=== PATIENT | female | born 1965 | race Caucasian/White ===

== ENCOUNTER 2017-10-31 10:05 | Emergency (ER) | payer OTHER ==
[~2017-10-31] VITALS: Ht 170.2 cm; Wt 109.8 kg
--- NOTE | 2017-10-31 11:45 | ED INFLUENZA/URI COMPLAINT ---
History of Present Illness General Chief Complaint: Upper Respiratory Sx/Fever Stated Complaint: COUGH Source: patient Exam Limitations: no limitations Vital Signs & Intake/Output Vital Signs & Intake/Output Vital Signs Date Time Temp Pulse Resp B/P B/P Pulse O2 O2 Flow FiO2 Mean Ox Delivery Rate 10/31 1212 96 10/31 1013 99.5 108 18 142/92 95 Room Air Allergies Coded Allergies: NO KNOWN ALLERGIES (06/23/14) Reconcile Medications Albuterol Sulfate (Proair Hfa) 90 MCG HFA.AER.AD 2 PUF INH Q4-6 PRN PRN SHORTNESS OF BREATH (Reported) Amlodipine Besylate 5 MG TABLET 1 TAB PO DAILY HEART (Reported) Atorvastatin Calcium 10 MG TABLET 1 TAB PO DAILY CHOLESTEROL (Reported) Beclomethasone Dipropionate (QVAR) 80 MCG AER.W.ADAP 2 PUF INH BID BREATHING PROBLEMS (Reported) Dalfampridine (Ampyra) 10 MG TAB.ER.12H WALKING (Reported) Dextroamphetamine/Amphetamine (Dextroamp-Amphetamin 10 MG Tab) 10 MG TABLET 1 TAB PO TID FATIGUE (Reported) Ergocalciferol (Vitamin D2) (Vitamin D2) 50,000 UNIT CAPSULE 1 CAP PO QW VITAMIN SUPPORT (Reported) Fluticasone/Vilanterol (Breo Ellipta 100-25 Mcg INH) 100 MCG-25 MCG/DOSE BLST.W.DEV SHORTNESS OF BREATH (Reported) Gabapentin 100 MG CAPSULE 1 CAP PO BID SPASMS (Reported) Gabapentin 300 MG CAPSULE 1 CAP PO QPM SPASMS (Reported) Levothyroxine Sodium 50 MCG TABLET 1 TAB PO DAILY AC THYROID (Reported) Triage Note: 52 YO FEMALE TO TRIAGE FOR EVAL OF COUGH AND SOB. STATES HX OF ASTHMA. STATES SOMETIMES HER COUGH IS PRODUCTIVE WITH YELLOW SPUTUM. STATES SHE HAS BEEN HAVING TO USE HER RESCUE INHALER MORE FREQUENTLY. DENIES CHEST PAIN. STATES SHE ALSO FEELS IF SHE PULLED HER BACK OUT WHILE COGHING, HX OF MS. Triage Nurses Notes Reviewed? yes Onset: Gradual Duration: constant Timing: recent history Severity: moderate Severity Numbers: 5 HPI: Patient is a 52-year-old female with past medical history of asthma MS hyperlipidemia and hypertension who presents emergency room with concerns of a 3 day history of nonproductive coughing pleuritic chest pain and back pain due to multiple episodes of coughing fits. Denies any fever chills ear pain sore throat difficulty breathing or swallowing chest pain arm pain jaw pain nausea vomiting leg swelling. Denies any similar sick contacts. Past History Travel History Traveled to [place] past 21 day No Medical History Any Pertinent Medical History? 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 No Review of Systems Review of Systems Constitutional: Reports: see HPI. Denies: chills, fever. EENTM: Reports: no symptoms. Respiratory: Reports: see HPI, cough. Cardiovascular: Reports: no symptoms. GI: Reports: no symptoms. Genitourinary: Reports: no symptoms. Musculoskeletal: Reports: no symptoms. Skin: Reports: no symptoms. Neurological/Psychological: Reports: no symptoms. Hematologic/Endocrine: Reports: no symptoms. Immunologic/Allergic: Reports: no symptoms. All Other Systems: Reviewed and Negative Physical Exam Physical Exam General Appearance: no apparent distress, alert, comfortable Head: atraumatic Eyes: Bilateral: normal appearance. Ears, Nose, Throat: normal ENT inspection, moist mucous membrane, hearing grossly normal Respiratory: chest non-tender, no respiratory distress, decreased breath sounds Cardiovascular: regular rate/rhythm Gastrointestinal: normal bowel sounds, soft, non-tender Extremities: normal inspection, no edema Neurologic/Psych: no motor/sensory deficits, awake, alert Skin: intact, normal color, warm/dry Core Measures Sepsis Present: No Sepsis Focused Exam Completed? No Progress Differential Diagnosis: influenza, meningitis, neutropenia, otitis, pneumonia, pharyngitis, sinusitis Plan of Care: Orders Procedure Date/time Status XRY-CHEST XRAY, TWO VIEWS 10/31 1156 Active Patient is afebrile no apparent distress no respiratory distress has decreased breath sounds nebulizer will be ordered chest x-ray will be obtained Patient had improvement of breathing after nebulizer was administered patient also had improvement on reexamination of the decreased breath sounds patient upon discharge looks well no apparent distress afebrile Was treated for concerns of bronchitis Diagnostic Imaging: Viewed by Me: Radiology Read. Radiology Impression: SEE COMMENTS Initial ED EKG: none Comments: PATIENT: LUPE STERLING PRESENT AGE: 52 PATIENT ACCOUNT NO: [id number] : 66 LOCATION: [facility] ORDERING PHYSICIAN: Rigoberto DAY SERVICE DATE: 10/31/176 EXAM TYPE: RAD - XRY-CHEST XRAY, TWO VIEWS EXAMINATION: XR CHEST CLINICAL INFORMATION: Cough and SOB. COMPARISON: Chest 08/07/2017 TECHNIQUE: 2 views of the chest were obtained. FINDINGS: There is there is a small left pleural effusion with underlying atelectasis and new since the last study. Otherwise both lungs are well-expanded and clear. Heart size is borderline normal. No gross bony abnormality seen. IMPRESSION: Suspect small left pleural effusion with underlying compressive atelectasis. DICTATED BY: Benitez Gandhi MD DATE/TIME DICTATED:10/31/171240 BANK TELLER:ROSIE DATE/TIME TRANSCRIBED:10/31/17 Departure Departure Disposition: HOME OR SELF CARE Condition: Stable Clinical Impression Primary Impression: Bronchitis Referrals: Kush Castanon MD (PCP/Family) Tad Ridley MD Additional Instructions: As discussed begin a prescription of azithromycin for the full course, Tessalon Perles and Cheratussin for cough and Medrol Dosepak for inflammation, prescriptions waiting at [facility]. If symptoms worsen or if you develop any new concerning symptoms return to the emergency room, if no better in 2 days follow-up with your primary care doctor or establish custodian supervisor Dr. Ridley Departure Forms: Customer Survey General Discharge Information Prescriptions: Current Visit Scripts Azithromycin (Zithromax) 1 TAB PO DAILY #5 TAB Benzonatate (Tessalon Perle) 1 CAP PO TID PRN COUGH #21 CAP Codeine Phosphate/Guaifenesi (Cheratussin AC Syrup) 10 ML PO BID PRN COUGH #100 ML Methylprednisolone. (Medrol) 1 DP PO AD #1 DP 6 on day 1 then reduce by one tablet daily until gone
[2017-10-31] MEDS ORDERED: VITAMIN D250000 UNIT PO (12:38)
[2017-10-31] MEDS ORDERED: GABAPENTIN100 M2 PO (12:39)
[2017-10-31] MEDS ORDERED: LEVOTHYROXINE50 MCG PO (12:39)
[2017-10-31] MEDS ORDERED: ATORVASTATIN CA10 M1 PO (12:39)
[2017-10-31] MEDS ORDERED: GABAPENTIN300 M2 PO (12:39)
[2017-10-31] MEDS ORDERED: AMPYRA10 M1 PO (12:40)
[2017-10-31] MEDS ORDERED: DEXTROAMP-AMPHE10 MG PO (12:40)
[2017-10-31] MEDS ORDERED: PROAIR HFA8.5 GM INH (12:40)
[2017-10-31] MEDS ORDERED: AMLODIPINE BESYL5 M1 PO (12:41)
[2017-10-31] MEDS ORDERED: BREO ELLIPTA 11 EACH PO (12:41)
[2017-10-31] MEDS ORDERED: QVAR8.7 G1 INH (12:41)
--- NOTE | 2017-10-31 12:45 | RADIOLOGY REPORT ---
EXAMINATION: XR CHEST CLINICAL INFORMATION: Cough and SOB. COMPARISON: Chest 08/07/2017 TECHNIQUE: 2 views of the chest were obtained. FINDINGS: There is there is a small left pleural effusion with underlying atelectasis and new since the last study. Otherwise both lungs are well-expanded and clear. Heart size is borderline normal. No gross bony abnormality seen. IMPRESSION: Suspect small left pleural effusion with underlying compressive atelectasis.
[2017-10-31] MEDS ORDERED: ZITHROMAX500 M2 PO (13:16)
[2017-10-31] MEDS ORDERED: CHERATUSSIN AC118 M1 PO (13:16)
[2017-10-31] MEDS ORDERED: MEDROL4 M2 PO (13:16)
[2017-10-31] MEDS ORDERED: TESSALON PERLE100 M1 PO (13:16)
[2017-10-31 13:48] VITALS: BP 138/84
[2017-10-31] MEDS ORDERED: VALIUM5 M2 PO (15:21)
[2017-11-01] MEDS ORDERED: AMPYRA10 M1 PO (21:37)
== END 2017-10-31 13:49 ==
LOC: ERH 10:05
DX: J40 Bronchitis, not specified as acute or chronic (principal); R07.89 Other chest pain
CPT/HCPCS: 1263; 71046; J3360

== ENCOUNTER 2017-10-31 13:53 | Emergency (ER) | payer OTHER ==
[~2017-10-31] VITALS: Ht 170.2 cm; Wt 109.8 kg
[~2017-10-31 13:53] MED LIST: AMLODIPINE BESYL5 M1 PO; AMPYRA10 M1 PO; ATORVASTATIN CA10 M1 PO; BREO ELLIPTA 11 EACH PO; CHERATUSSIN AC118 M1 PO; DEXTROAMP-AMPHE10 MG PO; GABAPENTIN100 M2 PO; GABAPENTIN300 M2 PO; LEVOTHYROXINE50 MCG PO; MEDROL4 M2 PO; PROAIR HFA8.5 GM INH; QVAR8.7 G1 INH; TESSALON PERLE100 M1 PO; VITAMIN D250000 UNIT PO; ZITHROMAX500 M2 PO
--- NOTE | 2017-10-31 14:20 | ED NECK/BACK PAIN COMPLAINT ---
History of Present Illness General Chief Complaint: General Adult Stated Complaint: CRAMPING ON LEFT SIDE, SEEN HERE TODAY FOR BRONCHI Source: patient Exam Limitations: no limitations Vital Signs & Intake/Output Vital Signs & Intake/Output Vital Signs Date Time Temp Pulse Resp B/P B/P Pulse O2 O2 Flow FiO2 Mean Ox Delivery Rate 10/31 1511 98.0 112 20 161/93 94 Room Air Room Air 10/31 1357 98.4 101 18 153/94 98 Room Air Allergies Coded Allergies: NO KNOWN ALLERGIES (06/23/14) Reconcile Medications Albuterol Sulfate (Proair Hfa) 90 MCG HFA.AER.AD 2 PUF INH Q4-6 PRN PRN SHORTNESS OF BREATH (Reported) Amlodipine Besylate 5 MG TABLET 1 TAB PO DAILY HEART (Reported) Atorvastatin Calcium 10 MG TABLET 1 TAB PO DAILY CHOLESTEROL (Reported) Azithromycin (Zithromax) 500 MG TABLET 1 TAB PO DAILY BRONCHITIS Beclomethasone Dipropionate (QVAR) 80 MCG AER.W.ADAP 2 PUF INH BID BREATHING PROBLEMS (Reported) Benzonatate (Tessalon Perle) 100 MG CAPSULE 1 CAP PO TID PRN COUGH Codeine Phosphate/Guaifenesi (Cheratussin AC Syrup) 10 MG-100 MG/5 ML LIQUID 10 ML PO BID PRN COUGH Dalfampridine (Ampyra) 10 MG TAB.ER.12H WALKING (Reported) Dextroamphetamine/Amphetamine (Dextroamp-Amphetamin 10 MG Tab) 10 MG TABLET 1 TAB PO TID FATIGUE (Reported) Diazepam (Valium) 5 MG TABLET 1 TAB PO BIDP PRN MS HUG Ergocalciferol (Vitamin D2) (Vitamin D2) 50,000 UNIT CAPSULE 1 CAP PO QW VITAMIN SUPPORT (Reported) Fluticasone/Vilanterol (Breo Ellipta 100-25 Mcg INH) 100 MCG-25 MCG/DOSE BLST.W.DEV SHORTNESS OF BREATH (Reported) Gabapentin 100 MG CAPSULE 1 CAP PO BID SPASMS (Reported) Gabapentin 300 MG CAPSULE 1 CAP PO QPM SPASMS (Reported) Levothyroxine Sodium 50 MCG TABLET 1 TAB PO DAILY AC THYROID (Reported) Methylprednisolone. (Medrol) 4 MG TAB.DS.PK 1 DP PO AD INFLAMMATION 6 on day 1 then reduce by one tablet daily until gone Triage Note: 52 YO FEMALE TO TRIAGE FOR EVAL OF L SIDED FLANK PAIN, PT WAS JUST D/C FROM THE ER AND DX WITH BRONCHITIS. STATES PAIN STARTED SHE WAS GETTING WHEELED TO CAR. Triage Nurses Notes Reviewed? yes Onset: Abrupt Duration: constant Timing: single episode today Quality/Severity: moderate Location: paraspinous muscles HPI: Patient is a 52-year-old female with past medical history of MS in which she was evaluated 5 minutes ago in the emergency room for concerns of bronchitis and due to multiple episodes of coughing prior to onset she has an exacerbation of a MS HUG in which she is complaining of left-sided chest muscle spasms where she states that this happens "once in a blue arteaga" with patient takes and is compliant with her gabapentin Patient does state that due to her symptoms for the past few days of coughing she has had minimal emesis hugs however today's after she left the emergency room on the parking lot was much worse Past History Travel History Traveled to [place] past 21 day No Medical History Any Pertinent Medical History? 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 No Review of Systems Review of Systems Constitutional: Reports: no symptoms. Eyes: Reports: no symptoms. Ears, Nose, Throat, Mouth: Reports: no symptoms. Respiratory: Reports: see HPI. Cardiovascular: Reports: see HPI. Gastrointestinal/Abdominal: Reports: no symptoms. Musculoskeletal: Reports: see HPI. Skin: Reports: no symptoms. Neurological/Psychological: Reports: no symptoms. All Other Systems: Reviewed and Negative Physical Exam Physical Exam General Appearance: moderate distress Head: atraumatic Eyes: Bilateral: normal appearance. Ears, Nose, Throat, Mouth: hearing grossly normal Neck: normal inspection, no midline tenderness Respiratory: normal breath sounds Cardiovascular: regular rate/rhythm Gastrointestinal: normal bowel sounds Extremities: non-tender Core Measures CVA/TIA Diagnosis: No Progress Differential Diagnosis: carotid dissection, cauda equina syn, herniated disc, myofascial strain, pyelo/UTI, sciatica, spinal cord inj, thoracic outlet syn, T/ L spine injury, ureterolithiasis Plan of Care: Laboratory Tests 10/31/17 1434: Urine Color Cancelled, Urine Clarity Cancelled, Urine pH Cancelled, Ur Specific [place] Cancelled, Urine Protein Cancelled, Urine Ketones Cancelled, Urine Nitrite Cancelled, Urine Bilirubin Cancelled, Urine Urobilinogen Cancelled, Ur Leukocyte Esterase Cancelled, Ur Microscopic Cancelled, Urine Hemoglobin Cancelled, Urine Glucose Cancelled After Valium was administered patient had significant resolution of symptoms discussed CT scan results with patient Patient was given azithromycin for concerns of bronchitis however it is noted that patient has pneumonia from CT scan Patient after volume was administered had complete resolution of muscle spasms Patient requested to be discharged Diagnostic Imaging: Viewed by Me: CT Scan. Radiology Impression: SEE COMMENTS Comments: PATIENT: LUPE STERLING PRESENT AGE: 52 PATIENT ACCOUNT NO: [id number] : 67 LOCATION: [facility] ORDERING PHYSICIAN: Rigoberto DAY SERVICE DATE: 10/31/17-1433 EXAM TYPE: CAT - CT ABD & PELVIS W/O IV CONTRAS EXAMINATION: CT ABDOMEN AND PELVIS WITHOUT CONTRAST CLINICAL INFORMATION: Left flank pain COMPARISON: None TECHNIQUE: Multidetector volumetric imaging was performed from the superior aspect of the liver through the pubic symphysis. Sagittal and coronal reformatted images were obtained on the technologist's workstation. No oral or intravenous contrast was given. DLP: 1022.25 mGy-cm FINDINGS: LUNG BASES: Dense consolidation with air bronchograms of left lower lobe at the posterior dependent lung base. There is a small left pleural effusion layering dependently. LIVER, GALLBLADDER, AND BILIARY TREE: The liver is normal in size, shape, and attenuation. No focal hepatic lesion or biliary ductal dilatation is present. There are multiple small calcified gallstones layering in the gallbladder. No edema around the gallbladder. There is no bile duct dilatation. PANCREAS: Unremarkable. SPLEEN: Unremarkable. ADRENAL GLANDS: Unremarkable. KIDNEYS AND URETERS: The kidneys are normal in size, shape, and attenuation. No hydronephrosis, hydroureter, or calculi seen. No perinephric stranding. There are multiple small calcifications phleboliths in the pelvis bilaterally. BLADDER: Unremarkable. GASTROINTESTINAL TRACT: There are scattered diverticula of the left colon and sigmoid. There is no acute abnormality of the bowel. There is no diverticulitis. There is no bowel obstruction. There is no bowel wall thickening or edema. Moderate volume of stool scattered throughout the colon. The appendix is normal. The small bowel loops are normal. ABDOMINAL WALL: No significant hernia is appreciated. LYMPH NODES: Normal. VASCULAR: Unremarkable. PELVIC VISCERA: The uterus is retroverted. There is no adnexal abnormality. OSSEOUS STRUCTURES: There is degenerative spondylosis of the spine with multilevel disc height narrowing and endplate spurring and facet joint arthrosis. There is joint narrowing of the hip joints with spurring of the superior lateral acetabular rim of both hips. IMPRESSION: 1. No acute abnormality of the abdomen or pelvis. Normal kidneys, ureter and bladder. 2. Cholelithiasis without acute change of the gallbladder wall and no bile duct dilatation. 3. Mild diverticulosis of colon without acute abnormality of the bowel. 4. Left lower lobe consolidation, infiltrate, with left pleural effusion. DICTATED BY: Moris Jane MD DATE/TIME DICTATED:10/31/171502 SECTION MAINTAINER:ROSIE DATE/TIME TRANSCRIBED:10/31/171502 Departure Departure Disposition: HOME OR SELF CARE Condition: Stable Clinical Impression Primary Impression: Muscle spasm Secondary Impressions: Pneumonia Referrals: Kush Castanon MD (PCP/Family) Additional Instructions: As discussed continue previously prescribed medications for pneumonia especially your cough medications and the antibiotics, begin the prescription of Valium for recurrence of the muscle spasms. Prescription waiting at [facility]. If symptoms worsen or if you develop new concerning symptom return to the emergency room Departure Forms: Customer Survey General Discharge Information Prescriptions: Current Visit Scripts Diazepam (Valium) 1 TAB PO BIDP PRN MS HUG #8 TAB
[2017-10-31 15:11] VITALS: BP 161/93
--- NOTE | 2017-10-31 15:15 | CT SCAN REPORT ---
EXAMINATION: CT ABDOMEN AND PELVIS WITHOUT CONTRAST CLINICAL INFORMATION: Left flank pain COMPARISON: None TECHNIQUE: Multidetector volumetric imaging was performed from the superior aspect of the liver through the pubic symphysis. Sagittal and coronal reformatted images were obtained on the technologist's workstation. No oral or intravenous contrast was given. DLP: 1022.25 mGy-cm FINDINGS: LUNG BASES: Dense consolidation with air bronchograms of left lower lobe at the posterior dependent lung base. There is a small left pleural effusion layering dependently. LIVER, GALLBLADDER, AND BILIARY TREE: The liver is normal in size, shape, and attenuation. No focal hepatic lesion or biliary ductal dilatation is present. There are multiple small calcified gallstones layering in the gallbladder. No edema around the gallbladder. There is no bile duct dilatation. PANCREAS: Unremarkable. SPLEEN: Unremarkable. ADRENAL GLANDS: Unremarkable. KIDNEYS AND URETERS: The kidneys are normal in size, shape, and attenuation. No hydronephrosis, hydroureter, or calculi seen. No perinephric stranding. There are multiple small calcifications phleboliths in the pelvis bilaterally. BLADDER: Unremarkable. GASTROINTESTINAL TRACT: There are scattered diverticula of the left colon and sigmoid. There is no acute abnormality of the bowel. There is no diverticulitis. There is no bowel obstruction. There is no bowel wall thickening or edema. Moderate volume of stool scattered throughout the colon. The appendix is normal. The small bowel loops are normal. ABDOMINAL WALL: No significant hernia is appreciated. LYMPH NODES: Normal. VASCULAR: Unremarkable. PELVIC VISCERA: The uterus is retroverted. There is no adnexal abnormality. OSSEOUS STRUCTURES: There is degenerative spondylosis of the spine with multilevel disc height narrowing and endplate spurring and facet joint arthrosis. There is joint narrowing of the hip joints with spurring of the superior lateral acetabular rim of both hips. IMPRESSION: 1. No acute abnormality of the abdomen or pelvis. Normal kidneys, ureter and bladder. 2. Cholelithiasis without acute change of the gallbladder wall and no bile duct dilatation. 3. Mild diverticulosis of colon without acute abnormality of the bowel. 4. Left lower lobe consolidation, infiltrate, with left pleural effusion.
[2017-10-31] MEDS ORDERED: VALIUM5 M2 PO (15:21)
[2017-11-01] MEDS ORDERED: AMPYRA10 M1 PO (21:37)
== END 2017-10-31 16:23 ==
LOC: ERH 13:53
DX: M62.838 Other muscle spasm (principal); J18.9 Pneumonia, unspecified organism
CPT/HCPCS: 74176

== ENCOUNTER 2017-11-01 18:05 | Inpatient (IN) | payer OTHER ==
[~2017-11-01] VITALS: Ht 170.2 cm; Wt 106.1 kg
[~2017-11-01 18:05] MED LIST changes: +VALIUM5 M2 PO
--- NOTE | 2017-11-01 18:13 | ED DYSPNEA/ASTHMA COMPLAINT ---
History of Present Illness General Chief Complaint: General Adult Stated Complaint: HERE YEST X 2, DX W/ PNA, HAVING MUSCLE SPASMS Source: patient Exam Limitations: no limitations Vital Signs & Intake/Output Vital Signs & Intake/Output Vital Signs Date Time Temp Pulse Resp B/P B/P Pulse O2 O2 Flow FiO2 Mean Ox Delivery Rate 11/01 2243 108 18 160/90 95 Room Air 11/01 2005 113 20 179/83 94 Room Air 11/01 1810 99.2 106 18 153/90 94 Room Air Allergies Coded Allergies: NO KNOWN ALLERGIES (06/23/14) Triage Nurses Notes Reviewed? yes Onset: Gradual Duration: getting worse Severity: severe HPI: Patient is a 52-year-old female with a past medical history of asthma MS hyperlipidemia and hypertension who presents emergency room and which I evaluated patient yesterday on 2 occasions in the emergency room for concerns of upper respiratory infection and pneumonia however patient return to the emergency room for concerns of bronchospasms and CONTINUED "MS hug" AND COUGHING where she received Valium with improvement of symptoms patient was given antibiotics and antitussive medications and steroids however she returns stating that the coughing fits still occurs where patient does not feel any better and "THE MS HUGS" intermittent intercostal pain continues on multiple occasions unrelieved with her previous prescriptions given for Valium. Patient states that she just feels sore in her chest right now denies any and MS hug symptoms (Gerry DAY,Rigoberto) Reconcile Medications Albuterol Sulfate (Proair Hfa) 90 MCG HFA.AER.AD 2 PUF INH Q4-6 PRN PRN SHORTNESS OF BREATH (Reported) Amlodipine Besylate 5 MG TABLET 1 TAB PO DAILY HEART (Reported) Atorvastatin Calcium 10 MG TABLET 1 TAB PO DAILY CHOLESTEROL (Reported) Azithromycin (Zithromax) 500 MG TABLET 1 TAB PO DAILY BRONCHITIS Beclomethasone Dipropionate (QVAR) 80 MCG AER.W.ADAP 2 PUF INH BID BREATHING PROBLEMS (Reported) Benzonatate (Tessalon Perle) 100 MG CAPSULE 1 CAP PO TID PRN COUGH Codeine Phosphate/Guaifenesi (Cheratussin AC Syrup) 10 MG-100 MG/5 ML LIQUID 10 ML PO BID PRN COUGH Dalfampridine (Ampyra) 10 MG TAB.ER.12H 1 TAB PO BID UNKNOWN (Reported) Dextroamphetamine/Amphetamine (Dextroamp-Amphetamin 10 MG Tab) 10 MG TABLET 1 TAB PO TID FATIGUE (Reported) Diazepam (Valium) 5 MG TABLET 1 TAB PO BIDP PRN MS DAVID Ergocalciferol (Vitamin D2) (Vitamin D2) 50,000 UNIT CAPSULE 1 CAP PO QW VITAMIN SUPPORT (Reported) Fluticasone/Vilanterol (Breo Ellipta 100-25 Mcg INH) (Unknown Strength) BLST.W.DEV (Unknown Dose) PO DAILY SHORTNESS OF BREATH (Reported) Gabapentin 100 MG CAPSULE 1 CAP PO BID SPASMS (Reported) Gabapentin 300 MG CAPSULE 1 CAP PO QPM SPASMS (Reported) Levothyroxine Sodium 50 MCG TABLET 1 TAB PO DAILY AC THYROID (Reported) Methylprednisolone. (Medrol) 4 MG TAB.DS.PK 1 DP PO AD INFLAMMATION 6 on day 1 then reduce by one tablet daily until gone (Toni Zapata DO) Past History Travel History Traveled to [place] past 21 day No Medical History Any Pertinent Medical History? 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 No (Rigoberto Rangel) Review of Systems Review of Systems Constitutional: Reports: see HPI, fever. EENTM: Reports: no symptoms. Respiratory: Reports: see HPI. Cardiovascular: Reports: see HPI. GI: Reports: no symptoms. Genitourinary: Reports: no symptoms. Musculoskeletal: Reports: see HPI. Skin: Reports: no symptoms. Neurological/Psychological: Reports: no symptoms. Hematologic/Endocrine: Reports: no symptoms. Immunologic/Allergic: Reports: no symptoms. All Other Systems: Reviewed and Negative (Rigoberto Rangel) Physical Exam Physical Exam General Appearance: lethargic Head: atraumatic Eyes: Bilateral: normal appearance. Ears, Nose, Throat: normal pharynx Neck: normal inspection Respiratory: LEFT CRACKLES Cardiovascular: tachycardia Gastrointestinal: normal bowel sounds, soft, non-tender Extremities: no edema Neurologic/Psych: no motor/sensory deficits, awake Skin: intact, normal color Core Measures ACS in differential dx? Yes CVA/TIA Diagnosis No Sepsis Present: Yes Sepsis Focused Exam Completed? Yes (Gerry DAY,Rigoberto) Progress Differential Diagnosis: asthma, AMI, bronchitis, costochondritis, CHF, COPD, musculoskeletal pain, pericarditis, pulmonary embolism, pneumonia, pneumothorax, rib fracture, unstable angina Plan of Care: Orders Procedure Date/time Status Heart Healthy Diet 11/02 B Active HEPATIC FUNCTION PANEL 11/02 06 Active CBC WITHOUT DIFFERENTIAL 11/02 06 Active BASIC ELECTROLYTES PLUS BUN&CR 11/02 0600 Active TROPONIN LEVEL 11/02 0000 Active EKG 11/02 0000 Active Intake & Output 11/01 2234 Active EKG 11/01 2219 Active ED- NURSING MISC 11/01 220 Active ECHOCARDIOGRAM 11/01 220 Active Add-on Test (ER Only) 11/02 2143 Active TRC EVALUATION (GEN) 11/02 2115 Active Pathway - chart 11/02 2115 Active LACTIC ACID 11/01 211 Active Patient Data 11/01 210 Active ED Holding Orders 11/01 210 Active Admit to inpatient 11/01 210 Active Vital Signs 11/01 210 Active Code Status 11/01 210 Active Add-on Test (ER Only) 11/01 2054 Active LIPASE 11/01 1840 Complete B-TYPE NATRIURETIC PEP (BNP) 11/01 1840 Complete LOWER RESPIRATORY CULTURE 11/01 1813 Active BLOOD CULTURE 11/01 1813 Active TROPONIN LEVEL 11/01 1813 Complete LACTIC ACID 11/01 1813 Complete D-DIMER 11/01 1813 Complete COMPREHENSIVE METABOLIC PANEL 11/01 1813 Complete CBC WITHOUT DIFFERENTIAL 11/01 1813 Complete EKG 11/01 1813 Active VTE Mechanical Prophylaxis 11/01 UNK Active Current Medications Sig/Ana Rosa Start time Last Medication Dose Stop Time Status Admin Atorvastatin Calcium 10 MG 1700 11/02 1700 AC (Lipitor) Amlodipine Besylate 5 MG DAILY 11/02 09 AC (Norvasc) Azithromycin 500 MG DAILY 11/02 09 AC (Zithromax) Sodium Chloride 250 ML (Normal Saline 0.9%) Ceftriaxone Sodium 1,000 MG DAILY 11/02 899 AC (Rocephin) Enoxaparin Sodium 40 MG DAILY 11/02 899 UNVr (Lovenox) Gabapentin 100 MG DAILY 11/02 09 AC (Neurontin) Levothyroxine Sodium 0.05 MG DAILY AC 11/02 07 AC (Synthroid) Gabapentin 300 MG QPM 11/01 2300 AC (Neurontin) Albuterol Sulfate 2 PUF Q4-6 PRN PRN 11/01 2214 AC (Ventolin) Ibuprofen 600 MG Q8P PRN 11/01 2214 AC (Motrin) Non-Formulary 0 SEE ADMIN CRITERIA 11/01 2214 UNVr Medication (NON FORMULARY) Non-Formulary 0 SEE ADMIN CRITERIA 11/01 2214 UNVr Medication (NON FORMULARY) Guaifenesin 600 MG Q12 11/01 2204 AC (Mucinex) Diazepam 5 MG ONCE ONE 11/01 1814 CAN (Valium) 11/02 1815 Laboratory Tests 11/01/170: Anion Gap 12, Estimated GFR > 60, BUN/Creatinine Ratio 16.7, Glucose 136 H, Lactic Acid 1.3, Calcium 9.7, Total Bilirubin 0.9, AST 38 H, ALT 58 H, Alkaline Phosphatase 100, Troponin I < 0.01, Ahs-S-Jeclmwvbnuz Pept 33.7, Total Protein 6.5, Albumin 3.7, Globulin 2.8, Albumin/Globulin Ratio 1.3, Lipase 106, D-Dimer High Sensitivty 628 H, CBC w Diff NO MAN DIFF REQ, RBC 4.59, MCV 88.9, MCH 29.0, MCHC 32.6 L, RDW 13.5, MPV 7.0 L, Gran % 87.5 H, Lymphocytes % 3.2 L, Monocytes % 9.2, Eosinophils % 0.1, Basophils % 0, Absolute Granulocytes 22.9 H, Absolute Lymphocytes 0.8 L, Absolute Monocytes 2.4 H, Absolute Eosinophils 0, Absolute Basophils 0 Microbiology 11/02 1931 BLOOD: Blood Culture - RECD 11/01 1921 BLOOD: Blood Culture - RECD 11/01 1812 LOWER RESP: Respiratory Culture - ORD 11/01 1812 LOWER RESP: Gram Stain - ORD Patient on initial presentation is noted to be lethargic no concerns of severe sepsis or septic shock IV antibiotics and IV fluids were administered along with antitussives and IV steroids, discussed patient with Dr. Castanon who agrees with admission CT was unremarkable for pulmonary embolism Diagnostic Imaging: Viewed by Me: CT Scan. Radiology Impression: SEE COMMENTS Initial ED EKG: SINUS TACHYCARDIA 109 BPM Comments: PATIENT: LUPE STERLING PRESENT AGE: 52 PATIENT ACCOUNT NO: [id number] : 66 LOCATION: [facility] ORDERING PHYSICIAN: Rigoberto DAY SERVICE DATE: 11/01/17 EXAM TYPE: CAT - CTA CHEST-PULMONARY EMBOLISM EXAMINATION: CT ANGIOGRAM OF THE CHEST WITH AND WITHOUT CONTRAST (CT PULMONARY ANGIOGRAM FOR PE) CLINICAL INFORMATION: Reason for Study:
Presumptive Dx: MS JAKE CARTWRIGHT CHEST PAIN
Signs Symptoms: EVAL PE
COMPARISON: Chest x-ray 10/31/2017 TECHNIQUE: Prior to contrast administration, noncontrast localization images were obtained. Subsequently, multidetector volumetric imaging was performed from the thoracic inlet to below the diaphragms following the administration of 95 mL Optiray 320 intravenous contrast. No contrast reaction reported. Sagittal, coronal, and MIP oblique sagittal reformatted images were obtained on the CT workstation, uploaded to PACS, and reviewed. Total exam dose-length product 497.10 mGy-cm. FINDINGS: QUALITY OF STUDY/CONTRAST BOLUS: Fair PULMONARY ARTERIES: No central pulmonary embolus is seen. Assessment of the segmental to subsegmental vasculature is limited in some regions due to suboptimal bolus timing. THORACIC AORTA: No aneurysm or dissection. LUNG: There is partial opacification of the left lower lobe with an appearance favoring atelectasis. There is mild subsegmental atelectasis in the right lower lobe. No additional dense consolidation bilaterally. PLEURA: There is a small to moderate left pleural effusion, with a component tracking along the major fissure and an additional component along the posterior upper left hemithorax with a mildly lobulated contour suggesting loculation. No right pleural effusion. MEDIASTINUM: Tiny right thyroid calcification is noted, nonspecific. No mediastinal lymphadenopathy is seen. Cardiac size is within normal limits. There is a small pericardial effusion. Coronary artery calcifications are present. No evidence of septal bowing or right heart strain. CHEST WALL/AXILLA: No axillary or internal mammary lymphadenopathy. OSSEOUS STRUCTURES: Neck or degenerative UPPER ABDOMEN: Unremarkable. No reflux of contrast into the hepatic veins to suggest elevated right heart pressures. IMPRESSION: 1. No central pulmonary embolus. Assessment of the distal vasculature is suboptimal due to bolus timing, and the possibility of distal emboli therefore would be difficult to entirely exclude. 2. Small to moderate left pleural effusion, partially tracking along the major fissure along with an additional component along the posterior upper left hemithorax which appears loculated. 3. Partial opacification of the left lower lobe favoring atelectasis. 4. Small pericardial effusion. VTE: negative DICTATED BY: Prince Olsen MD DATE/TIME DICTATED:11/01/172024 DINKEY ENGINE FIRER/FIREMAN:ROSIE DATE/TIME TRANSCRIBED:11/01/172024 CONFIDENTIAL, DO NOT COPY WITHOUT APPROPRIATE AUTHORIZATION. <Electronically signed in Other Vendor System> SIGNED BY: Prince Olsen MD 11/01/172050 (Rigoberto Rangel) ED Sepsis Exam Date of Focused Sepsis Exam: 11/01/17 Time of Focused Sepsis Exam: 1919 Sepsis Cardiac Exam: Tachycardia Sepsis Resp Exam: CRACKLES Sepsis Cap Refill Exam: <2 Sec Sepsis Peripheral Pulse Exam: Normal Sepsis Peripheral Pulse Location: Radial Sepsis Skin Color Exam: Flushed Skin Temp/Moisture Exam: Warm/Dry (Rigoberto Rangel) Departure Departure Disposition: STILL A PATIENT Condition: Stable Clinical Impression Primary Impression: Pneumonia Secondary Impressions: Muscle spasm, Pleural effusion Referrals: Kush Castanon MD (PCP/Family) Departure Forms: Customer Survey General Discharge Information Admission Note Spoke With: Kush Castanon MD Documentation of Exam: Documentation of any treatments & extenuating circumstances including Concerns Regarding Discharge (functional status, medication knowledge or non-compliance, living conditions, etc.) that warrant an admission rather than observation: [ Patient requires IV antibiotics palmar consultation and repeat labs IV steroids repeat nebulizer treatments but cultures sputum culture currently pending] (Rigoberto Rangel) 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 I have also reviewed all the pertinent lab results and diagnostic results. I agree with the findings and the plan of care as documented in the PA's/NUT BLANKER OPERATOR's documentation. [] I have reviewed the ED Record and agree with the PA's/NUT BLANKER OPERATOR's documentation. [] Additions or exceptions (if any) to the PAs/NUT BLANKER OPERATOR's note and plan are summarized below: [] I've seen and personally examined the patient and I agree with the PAs evaluation. 52-year-old female with cough productive of yellow sputum. Lungs reveal poor air entry. (Toni Zapata DO) Critical Care Note Critical Care Note Critical Care Time: 30-74 min (Rigoberto Rangel)
[2017-11-01 18:53] LABS: ABSOLUTE BASOPHIL COUNT 0 /CUMM (0.0-0.2); ABSOLUTE EOSINOPHIL COUNT 0 /CUMM (0.0-0.7); ABSOLUTE GRANULOCYTE CT 22.9 /CUMM (1.4-6.5); ABSOLUTE LYMPH COUNT 0.8 /CUMM (1.2-3.4); ABSOLUTE MONOCYTE COUNT 2.4 /CUMM (0.10-0.60); BASOPHIL % 0 % (0.0-2.0); EOSINOPHIL % 0.1 % (0-5); HEMATOCRIT 40.8 % (37-47); MEAN CORPUSCULAR HGB CONC 32.6 G/DL (33.0-37.0); MEAN CORPUSCULAR VOLUME 88.9 FL (81.0-99.0); PLATELET COUNT 507 /CUMM (130-400); RBC DISTRIBUTION WIDTH 13.5 % (11.5-14.5); RED BLOOD CELL CT 4.59 /CUMM (4.20-5.40); WHITE BLOOD CELL COUNT 26.2 /CUMM (4.8-10.8)
[2017-11-01 19:07] LABS: GRANULOCYTE % 87.5 % (42.2-75.2)
--- NOTE | 2017-11-01 20:51 | CT SCAN REPORT ---
EXAMINATION: CT ANGIOGRAM OF THE CHEST WITH AND WITHOUT CONTRAST (CT PULMONARY ANGIOGRAM FOR PE) CLINICAL INFORMATION: Reason for Study:
Presumptive Dx: MS JAKE CARTWRIGHT CHEST PAIN
Signs Symptoms: EVAL PE
COMPARISON: Chest x-ray 10/31/2017 TECHNIQUE: Prior to contrast administration, noncontrast localization images were obtained. Subsequently, multidetector volumetric imaging was performed from the thoracic inlet to below the diaphragms following the administration of 95 mL Optiray 320 intravenous contrast. No contrast reaction reported. Sagittal, coronal, and MIP oblique sagittal reformatted images were obtained on the CT workstation, uploaded to PACS, and reviewed. Total exam dose-length product 497.10 mGy-cm. FINDINGS: QUALITY OF STUDY/CONTRAST BOLUS: Fair PULMONARY ARTERIES: No central pulmonary embolus is seen. Assessment of the segmental to subsegmental vasculature is limited in some regions due to suboptimal bolus timing. THORACIC AORTA: No aneurysm or dissection. LUNG: There is partial opacification of the left lower lobe with an appearance favoring atelectasis. There is mild subsegmental atelectasis in the right lower lobe. No additional dense consolidation bilaterally. PLEURA: There is a small to moderate left pleural effusion, with a component tracking along the major fissure and an additional component along the posterior upper left hemithorax with a mildly lobulated contour suggesting loculation. No right pleural effusion. MEDIASTINUM: Tiny right thyroid calcification is noted, nonspecific. No mediastinal lymphadenopathy is seen. Cardiac size is within normal limits. There is a small pericardial effusion. Coronary artery calcifications are present. No evidence of septal bowing or right heart strain. CHEST WALL/AXILLA: No axillary or internal mammary lymphadenopathy. OSSEOUS STRUCTURES: Neck or degenerative UPPER ABDOMEN: Unremarkable. No reflux of contrast into the hepatic veins to suggest elevated right heart pressures. IMPRESSION: 1. No central pulmonary embolus. Assessment of the distal vasculature is suboptimal due to bolus timing, and the possibility of distal emboli therefore would be difficult to entirely exclude. 2. Small to moderate left pleural effusion, partially tracking along the major fissure along with an additional component along the posterior upper left hemithorax which appears loculated. 3. Partial opacification of the left lower lobe favoring atelectasis. 4. Small pericardial effusion. VTE: negative
--- NOTE | 2017-11-01 21:23 | History & Physical ---
See Addendum León Zayas MD 11/01/172122: General Information and HPI MD Statement: I have seen and personally examined LUPE STERLING and documented this H&P. The patient is a 52 year old F who presented with a patient stated chief complaint of [cough]. Source of Information: patient, family Exam Limitations: no limitations History of Present Illness: Patient is a 52-year-old female with a PMH significant for MS (last exacerbation approximately 6 months ago), HTN, HLD, hypothyroidism, asthma, recurrent episodes of pneumonia who presents to the [facility] ED complaining of cough and shortness of breath. Patient reports her symptoms began 2 days ago with severe cough and shortness of breath, she was evaluated in the ED and discharged with antitussive medications and p.o. azithromycin for presumed bronchitis. Patient again presented to the ED and was sent home but began feeling bronchospasms as well as chest pain that began under her left breast and radiated around to her back, so she returned to the ED. She reports having chills over the last couple of months but has not had this worked up she denies any fevers, night sweats, weight loss. She had pneumonia approximately 2 months ago which was treated as an outpatient with Keflex, she also had pneumonia approximately 1 years ago treated with moxifloxacin. She denies any fever, substernal chest pain or pressure, palpitations, nausea, vomiting, lightheadedness, syncope, new neurologic symptoms. Allergies/Medications Allergies: Coded Allergies: NO KNOWN ALLERGIES (06/23/14) Home Med list Albuterol Sulfate (Proair Hfa) 90 MCG HFA.AER.AD 2 PUF INH Q4-6 PRN PRN SHORTNESS OF BREATH (Reported) Amlodipine Besylate 5 MG TABLET 1 TAB PO DAILY HEART (Reported) Atorvastatin Calcium 10 MG TABLET 1 TAB PO DAILY CHOLESTEROL (Reported) Azithromycin (Zithromax) 500 MG TABLET 1 TAB PO DAILY BRONCHITIS Beclomethasone Dipropionate (QVAR) 80 MCG AER.W.ADAP 2 PUF INH BID BREATHING PROBLEMS (Reported) Benzonatate (Tessalon Perle) 100 MG CAPSULE 1 CAP PO TID PRN COUGH Codeine Phosphate/Guaifenesi (Cheratussin AC Syrup) 10 MG-100 MG/5 ML LIQUID 10 ML PO BID PRN COUGH Dalfampridine (Ampyra) 10 MG TAB.ER.12H 1 TAB PO BID UNKNOWN (Reported) Dextroamphetamine/Amphetamine (Dextroamp-Amphetamin 10 MG Tab) 10 MG TABLET 1 TAB PO TID FATIGUE (Reported) Diazepam (Valium) 5 MG TABLET 1 TAB PO BIDP PRN MS HUG Ergocalciferol (Vitamin D2) (Vitamin D2) 50,000 UNIT CAPSULE 1 CAP PO QW VITAMIN SUPPORT (Reported) Fluticasone/Vilanterol (Breo Ellipta 100-25 Mcg INH) (Unknown Strength) BLST.W.DEV (Unknown Dose) PO DAILY SHORTNESS OF BREATH (Reported) Gabapentin 100 MG CAPSULE 1 CAP PO BID SPASMS (Reported) Gabapentin 300 MG CAPSULE 1 CAP PO QPM SPASMS (Reported) Levothyroxine Sodium 50 MCG TABLET 1 TAB PO DAILY AC THYROID (Reported) Methylprednisolone. 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 Psychosocial History Where do you live? Home Primary Language: Hebrew Smoking Status: Never Smoked ETOH Use: denies use Illicit Drug Use: denies illicit drug use Functional Ability Ambulation: walker Review of Systems Review of Systems Constitutional: Reports: chills. Denies: fever, malaise, weakness. EENTM: Denies: blurred vision, double vision, visual changes. Cardiovascular: Reports: chest pain. Denies: palpitations, syncope. Respiratory: Reports: cough, short of breath, sputum production. GI: Denies: abdominal pain, melena, nausea, vomiting. Genitourinary: Denies: dysuria, hematuria. Musculoskeletal: Reports: back pain. Skin: Reports: no symptoms. Neurological/Psychological: Reports: numbness (R hand chronic). Exam & Diagnostic Data Last 24 Hrs of Vital Signs/I&O Vital Signs Date Time Temp Pulse Resp B/P B/P Pulse O2 O2 Flow FiO2 Mean Ox Delivery Rate 11/01 2005 113 20 179/83 94 Room Air 11/01 1809 99.2 106 18 153/90 94 Room Air Physical Exam General Appearance Alert, Oriented X3, Cooperative, No Acute Distress Skin Temp/Moisture Exam: Warm/Dry Cardiovascular Regular Rate, Normal S1, Normal S2, No Murmurs Lungs bibasliar crackles with diminished breath sounds of the L lower lung field Abdomen Normal Bowel Sounds, Soft, No Tenderness Neurological Normal Speech, Strength at 5/5 X4 Ext, Normal Tone, Sensation Intact, Cranial Nerves 3-12 NL Extremities No Clubbing, No Cyanosis, No Edema Sepsis Peripheral Pulse Location: Radial Sepsis Peripheral Pulse Exam: Normal Sepsis Cap Refill Exam: <2 Sec Last 24 Hrs of Labs/Domenico: Laboratory Tests 11/01/170: Anion Gap 12, Estimated GFR > 60, BUN/Creatinine Ratio 16.7, Glucose 136 H, Lactic Acid 1.3, Calcium 9.7, Total Bilirubin 0.9, AST 38 H, ALT 58 H, Alkaline Phosphatase 100, Troponin I < 0.01, Vcc-B-Pmkindurfbg Pept 33.7, Total Protein 6.5, Albumin 3.7, Globulin 2.8, Albumin/Globulin Ratio 1.3, Lipase 106, D-Dimer High Sensitivty 628 H, CBC w Diff NO MAN DIFF REQ, RBC 4.59, MCV 88.9, MCH 29.0, MCHC 32.6 L, RDW 13.5, MPV 7.0 L, Gran % 87.5 H, Lymphocytes % 3.2 L, Monocytes % 9.2, Eosinophils % 0.1, Basophils % 0, Absolute Granulocytes 22.9 H, Absolute Lymphocytes 0.8 L, Absolute Monocytes 2.4 H, Absolute Eosinophils 0, Absolute Basophils 0 Microbiology 11/01 193 BLOOD: Blood Culture - RECD 11/01 1921 BLOOD: Blood Culture - RECD 11/01 1812 LOWER RESP: Respiratory Culture - ORD 11/01 1812 LOWER RESP: Gram Stain - ORD Diagnostic Data EKG Results sinus tachycardia HR 109, QTc 426 Other Results CTA chest QUALITY OF STUDY/CONTRAST BOLUS: Fair PULMONARY ARTERIES: No central pulmonary embolus is seen. Assessment of the segmental to subsegmental vasculature is limited in some regions due to suboptimal bolus timing. THORACIC AORTA: No aneurysm or dissection. LUNG: There is partial opacification of the left lower lobe with an appearance favoring atelectasis. There is mild subsegmental atelectasis in the right lower lobe. No additional dense consolidation bilaterally. PLEURA: There is a small to moderate left pleural effusion, with a component tracking along the major fissure and an additional component along the posterior upper left hemithorax with a mildly lobulated contour suggesting loculation. No right pleural effusion. MEDIASTINUM: Tiny right thyroid calcification is noted, nonspecific. No mediastinal lymphadenopathy is seen. Cardiac size is within normal limits. There is a small pericardial effusion. Coronary artery calcifications are present. No evidence of septal bowing or right heart strain. CHEST WALL/AXILLA: No axillary or internal mammary lymphadenopathy. OSSEOUS STRUCTURES: Neck or degenerative UPPER ABDOMEN: Unremarkable. No reflux of contrast into the hepatic veins to suggest elevated right heart pressures. IMPRESSION: 1. No central pulmonary embolus. Assessment of the distal vasculature is suboptimal due to bolus timing, and the possibility of distal emboli therefore would be difficult to entirely exclude. 2. Small to moderate left pleural effusion, partially tracking along the major fissure along with an additional component along the posterior upper left hemithorax which appears loculated. 3. Partial opacification of the left lower lobe favoring atelectasis. 4. Small pericardial effusion. VTE: negative Assessment/Plan Assessment: Patient is a 52-year-old female with a PMH significant for MS (last exacerbation approximately 6 months ago), HTN, HLD, hypothyroidism, asthma, recurrent episodes of pneumonia who presents to the [facility] ED complaining of cough and shortness of breath. She was seen in the ED day prior to presentation and discharged with p.o. antitussives and p.o. azithromycin for treatment of bronchitis. She then presented again and was sent home however began having chest pain starting in the left breast and radiating to the back. CTA chest was done and ruled out PE and aortic dissection, but it did show left sided pleural effusion, left lower lobe opacity, and a pericardial effusion. Vitals on presentation: T 99.2, P 106, RR 18, BP 153/90, pulse ox 94% on room air Labs: WBC 26.2, H/H 13.3/40.8, platelets 507, sodium 138, potassium 5.0, chloride 97, CO2 28, BUN 10, creatinine 0.6, glucose 136, lactic acid 1.3, AST 38, ALT 58, troponin <0.01 Problem list #Sepsis likely secondary to pneumonia, patient meets SIRS criteria for leukocytosis (however patient is on steroids), and tachycardia #pericardial effusion #transaminitis #chornic medical problems incuding MS, HTN, HLD, Asthma, Hypothyroidism Plan -admit to general medicine floor -IV ceftriaxone and IV azithromycin -TRC/Nebs -echo for pericardial effusion seen on CTA -repeat LFTs in AM -repeat trop and EKG in AM -follow-up sputum culture and blood cultures -continue home meds Diet: heart healthy DVT prophylaxis: Lovenox, alps Code status: Full code As Ranked By This Provider Problem List: 1. Pneumonia 2. Pleural effusion Core Measures/Misc (01/29) Acute Coronary Syndrome ACS Diagnosis: No Congestive Heart Failure Congestive Heart Failure Diagnosis No Cerebrovascular Accident CVA/TIA Diagnosis: No VTE (View Protocol) VTE Risk Factors Age>40 No Mechanical VTE Prophylaxis d/t N/A MechProphylax Ordered No VTE Pharm Prophylaxis d/t NA PharmProphylax ordered Sepsis (View protocol) Sepsis Present: Yes If YES complete Sepsis Event Note If YES complete Sepsis Event Note Gricelda Thompson 11/01/17 2132: Core Measures/Misc (01/29) Sepsis (View protocol) If YES complete Sepsis Event Note If YES complete Sepsis Event Note Resident Review Statement Resident Statement: discussed with music internship, agreed with music internship Other Findings: Patient is 52-year-old female with past medical history significant for asthma, multiple sclerosis, hypertension and lipidemia, hypertension, hypothyroidism, multiple episodes of pneumonia, last episode was in July 2017 treated as outpatient. Patient came today with chief complaint of difficulty breathing. She states that it has gradually worsened since past 2 days. She also reports of productive cough and reports that during her last pneumonia she had blackish sputum. Patient also reports of chills since past couple of months however denies any fever. During her last episode of pneumonia, she was treated for 10 days of cephalexin. Patient reports that she did not get a flu shot this season , and neither got a pneumonia shot. She has never been intubated and does not smoke. Labs and vitals as above. Assessment and plan 1. We'll admit the patient on general medicine floor 2. Start IV antibiotics ceftriaxone and azithromycin as CAT scan shows evidence of pneumonia. 3. Patient also had a low-grade temp so we'll continue to monitor vitals every shift. We'll repeat CBC and BEP in am. 4. Patient takes 5 mg of amlodipine daily, and took her todays dose. 5. Patient has pericardial effusion on CAT scan, will get an echocardiogram and follow-up. 6. Patient has mild transaminitis, and will recheck liver enzymes in morning and if they continue to be elevated, please consider abdominal ultrasound. 7. DVT prophylaxis according his Lovenox 8. Patient is full code.
[2017-11-01] MEDS ORDERED: AMPYRA10 M1 PO (21:37)
[2017-11-01 22:58] VITALS: BP 160/100
[2017-11-02 06:55] VITALS: BP 151/86
--- NOTE | 2017-11-02 08:55 | PN- Housestaff ---
Subjective Follow-up For: pneumonia Subjective: no overnight events no supplemental oxygen requirement afebrile on antibiotics Review of Systems Constitutional: Reports: see HPI. Objective Last 24 Hrs of Vital Signs/I&O Vital Signs Date Time Temp Pulse Resp B/P B/P Pulse O2 O2 Flow FiO2 Mean Ox Delivery Rate 11/02 1137 94 Room Air 11/02 1130 Room Air 11/02 0834 88 151/86 11/02 0800 92 Room Air 11/02 0655 97.8 88 20 151/86 92 11/02 0037 115 160/100 11/01 2300 Room Air 11/01 2258 98.5 115 20 160/100 92 Room Air 11/01 2243 108 18 160/90 95 Room Air 11/01 2006 113 20 179/83 94 Room Air 11/01 1810 99.2 106 18 153/90 94 Room Air Intake & Output 11/02 1600 11/02 0800 11/02 0000 Intake Total 260 1000 Output Total 300 Balance -40 1000 Intake, IV 20 1000 Intake, Oral 240 Output, Urine 300 Patient 106.594 kg Weight Weight Bed scale Measurement Method Physical Exam General Appearance: Alert, Oriented X3, Cooperative, No Acute Distress Cardiovascular: Regular Rate, Normal S1, Normal S2, No Murmurs Lungs: LLL crackles Abdomen: Normal Bowel Sounds, Soft, No Tenderness, No Masses Current Medications: Current Medications Sig/Ana Rosa Start time Last Medication Dose Route Stop Time Status Admin Albuterol Sulfate 3 ML BID 11/02 2100 AC 11/02 INH 1136 Albuterol Sulfate 2 PUF Q4-6 PRN PRN 11/01 2215 AC INH Amlodipine Besylate 5 MG DAILY 11/02 09 AC 11/02 PO 0834 Amlodipine Besylate 5 MG ONCE ONE 11/01 2300 DC 11/02 PO 11/01 2301 0037 Atorvastatin Calcium 10 MG 1700 11/02 1700 AC PO Azithromycin 500 MG DAILY 11/02 09 AC 11/02 Sodium Chloride 250 ML IV 0834 Azithromycin 500 MG ONCE ONE 11/01 1814 DC 11/01 Sodium Chloride 250 ML IV 11/01 Ceftriaxone Sodium 1,000 MG DAILY 11/02 0900 AC 11/02 IV 0834 Ceftriaxone Sodium 0 .STK-MED ONE 11/01 1914 DC .ROUTE Ceftriaxone Sodium 1,000 MG ONCE ONE 11/01 1814 DC 11/01 IV 11/01 Diazepam 2 MG .STK-MED ONE 11/02 0027 DC PO 11/02 0028 Diazepam 5 MG .STK-MED ONE 11/02 0024 DC PO 11/02 0025 Diazepam 2 MG ONCE ONE 11/01 2345 DC 11/02 PO 11/01 2346 0037 Diazepam 0 .STK-MED ONE 11/01 2002 DC PO Diazepam 5 MG ONCE ONE 11/01 193 DC 11/01 PO 11/01 1932016 Diazepam 5 MG ONCE ONE 11/01 1815 CAN IV 11/01 181 Enoxaparin Sodium 40 MG DAILY 11/02 0900 AC 11/02 SC 0835 Gabapentin 100 MG DAILY 11/02 0900 AC 11/02 PO 0834 Gabapentin 300 MG QPM 11/01 2300 AC 11/02 PO 0037 Guaifenesin 600 MG Q12 11/01 2205 AC 11/02 PO 0834 Guaifenesin 600 MG ONCE ONE 11/01 181 DC 11/01 PO 11/01 181 192 Ibuprofen 600 MG Q8P PRN 11/01 221 AC 11/02 PO 1140 Levothyroxine Sodium 0.05 MG DAILY AC 11/02 0700 AC 11/02 PO 0628 Methylprednisolone 0 .STK-MED ONE 11/01 191 DC .ROUTE Methylprednisolone 125 MG ONCE ONE 11/01 1814 DC 11/01 IV 11/02 1815 192 Non-Formulary 0 SEE ADMIN CRITERIA 11/01 2214 UNVr Medication ANY Non-Formulary 0 SEE ADMIN CRITERIA 11/01 2214 DC Medication ANY Sodium Chloride 1,000 ML BOLUS ONE 11/01 194 DC 11/01 IV 11/01 Last 24 Hrs of Lab/Domenico Results Last 24 Hrs of Labs/Mics: Laboratory Tests 11/02/17 0939: RBC 4.26, MCV 88.1, MCH 29.2, MCHC 33.1, RDW 13.2, MPV 7.6, Gran % 93.5 H, Lymphocytes % 2.7 L, Monocytes % 3.8, Eosinophils % 0, Basophils % 0, Absolute Granulocytes 19.9 H, Absolute Lymphocytes 0.6 L, Absolute Monocytes 0.8 H, Absolute Eosinophils 0, Absolute Basophils 0 11/02/17 0711: Anion Gap 13, Estimated GFR > 60, BUN/Creatinine Ratio 23.3, Total Bilirubin 0.4 , Direct Bilirubin 0.2, AST 25, ALT 57 H, Alkaline Phosphatase 104, Total Protein 5.8 L, Albumin 3.2 L 11/02/17 0044: Troponin I < 0.01 11/02/17 0044: Lactic Acid 1.8 11/01/17 1840: Anion Gap 12, Estimated GFR > 60, BUN/Creatinine Ratio 16.7, Glucose 136 H, Lactic Acid 1.3, Calcium 9.7, Total Bilirubin 0.9, AST 38 H, ALT 58 H, Alkaline Phosphatase 100, Troponin I < 0.01, Kca-K-Ycbgfeeorvw Pept 33.7, Total Protein 6.5, Albumin 3.7, Globulin 2.8, Albumin/Globulin Ratio 1.3, Lipase 106, D-Dimer High Sensitivty 628 H, CBC w Diff NO MAN DIFF REQ, RBC 4.59, MCV 88.9, MCH 29.0, MCHC 32.6 L, RDW 13.5, MPV 7.0 L, Gran % 87.5 H, Lymphocytes % 3.2 L, Monocytes % 9.2, Eosinophils % 0.1, Basophils % 0, Absolute Granulocytes 22.9 H, Absolute Lymphocytes 0.8 L, Absolute Monocytes 2.4 H, Absolute Eosinophils 0, Absolute Basophils 0 Microbiology 11/02 633 LOWER RESP: Respiratory Culture - RES 11/02 633 LOWER RESP: Gram Stain - RES 11/02 1931 BLOOD: Blood Culture - RES 11/01 1921 BLOOD: Blood Culture - RES Assessment/Plan Assessment: 52 year old female with PMH of MS on solumedrol, Ampyra, and rituximab, hypothyroidism, HTN, HLD, recurrent pneumonia, most recently 07/2017 treated as outpatient presented with complaints of Pneumonia and pleural effusion: Chest CTA-moderate left pleural effusion tracking along the major fissure along with an additional component along the posterior upper left hemithorax which appears loculated. Partial opacification of the left lower lobe favoring atelectasis Afebrile on presentation, leukocytosis with tachycardia Continue ceftriaxone and azithromycin Pulmonology consultation TRC evaluation Continue mucinex and nebulized albuterol Leukocytosis trending down on antibiotics HTN: Continue norvasc HLD: Continue atorvastatin Hypothyroidism: Continue synthroid MS: Continue ampyra 10mg po bid Heart healthy diet DVT ppx-lovenox Full code Problem List: 1. Pleural effusion 2. Pneumonia Pain Ratin Pain Location: n/a Pain Goal: Pain 4 or less Pain Plan: prn Tomorrow's Labs & Rationales: cbc
--- NOTE | 2017-11-02 10:10 | Admission Certification ---
Admission Certification Certification Statement - As attending physician, I certify that at the time of - admission, based on clinical presentation, severity of - symptoms, need for further diagnostic testing and - therapeutic interventions, and risk of adverse outcomes - without in-hospital treatment, in my clinical assessment, - this patient requires an acute hospital stay for a minimum - of two nights or longer. I have also considered psychsocial - factors such as support system, advanced age, financial - issues, cognitive issues, and failed out-patient treatments, - past re-admission history, safety of patient, and lack of - compliance as applicable. Specific rationale supporting this admission is: Cough, congestion, pneumonia no response to antibiotic treatment and history of multiple sclerosis on steroids
--- NOTE | 2017-11-02 10:15 | PN- Att Addend ---
Attending Addendum Attending Brief Note 52-year-old white female history of multiple sclerosis follows with , and periodic IV steroid infusions. Has had this cough and congestion off and on for a little while, getting progressively worse, has had treatments which helped for a little while and then cough returns and sometimes having coughing fits and after that she gets some tightness in her chest. Has had 2 ER visits, still not feeling any better, in the ER she had blood work, her white count is elevated but she is also on steroids. CTA of the chest shows a left pleural effusion. Atelectasis versus left lower lobe infiltrate and a small pericardial effusion. V TE negative will get a pulmonary consultation Current Medications Sig/Ana Rosa Start time Last Medication Dose Route Stop Time Status Admin Albuterol Sulfate 2 PUF Q4-6 PRN PRN 11/01 2215 AC INH Amlodipine Besylate 5 MG DAILY 11/02 09 AC 11/02 PO 0834 Amlodipine Besylate 5 MG ONCE ONE 11/01 2300 DC 11/02 PO 11/01 2301 0037 Atorvastatin Calcium 10 MG 1700 11/02 1700 AC PO Azithromycin 500 MG DAILY 11/02 09 AC 11/02 Sodium Chloride 250 ML IV 0834 Azithromycin 500 MG ONCE ONE 11/01 181 DC 11/01 Sodium Chloride 250 ML IV 11/01 1914 2040 Ceftriaxone Sodium 1,000 MG DAILY 11/02 09 AC 11/02 IV 0834 Ceftriaxone Sodium 0 .STK-MED ONE 11/01 191 DC .ROUTE Ceftriaxone Sodium 1,000 MG ONCE ONE 11/01 1815 DC 11/01 IV 11/01 1816 2040 Diazepam 2 MG .STK-MED ONE 11/02 0027 DC PO 11/02 0028 Diazepam 5 MG .STK-MED ONE 11/02 0024 DC PO 11/02 0025 Diazepam 2 MG ONCE ONE 11/01 2345 DC 11/02 PO 11/01 2346 0037 Diazepam 0 .STK-MED ONE 11/01 2002 DC PO Diazepam 5 MG ONCE ONE 11/01 1930 DC 11/01 PO 11/01 193 2017 Diazepam 5 MG ONCE ONE 11/01 1815 CAN IV 11/01 181 Enoxaparin Sodium 40 MG DAILY 11/02 899 AC 11/02 SC 0835 Gabapentin 100 MG DAILY 11/02 09 AC 11/02 PO 0834 Gabapentin 300 MG QPM 11/01 2300 AC 11/02 PO 0037 Guaifenesin 600 MG Q12 11/01 2205 AC 11/02 PO 0834 Guaifenesin 600 MG ONCE ONE 11/01 181 DC 11/01 PO 11/02 1815 192 Ibuprofen 600 MG Q8P PRN 11/01 221 AC 11/01 PO 2344 Levothyroxine Sodium 0.05 MG DAILY AC 11/02 0700 AC 11/02 PO 0628 Methylprednisolone 0 .STK-MED ONE 11/01 191 DC .ROUTE Methylprednisolone 125 MG ONCE ONE 11/01 1814 DC 11/01 IV 11/02 1815 192 Non-Formulary 0 SEE ADMIN CRITERIA 11/01 2214 UNVr Medication ANY Non-Formulary 0 SEE ADMIN CRITERIA 11/01 2214 DC Medication ANY Sodium Chloride 1,000 ML BOLUS ONE 11/01 1944 DC 11/01 IV 11/01 Laboratory Tests 11/02/17 0939: WBC Pending, RBC Pending, Hgb Pending, Hct Pending, MCV Pending, MCH Pending, MCHC Pending, RDW Pending, Plt Count Pending, MPV Pending 11/02/17 0711: Anion Gap 13, Estimated GFR > 60, BUN/Creatinine Ratio 23.3, Total Bilirubin 0.4 , Direct Bilirubin 0.2, AST 25, ALT 57 H, Alkaline Phosphatase 104, Total Protein 5.8 L, Albumin 3.2 L 11/02/17 0044: Troponin I < 0.01 11/02/17 0044: Lactic Acid 1.8 11/01/17 1840: Anion Gap 12, Estimated GFR > 60, BUN/Creatinine Ratio 16.7, Glucose 136 H, Lactic Acid 1.3, Calcium 9.7, Total Bilirubin 0.9, AST 38 H, ALT 58 H, Alkaline Phosphatase 100, Troponin I < 0.01, Lbc-S-Rddpjeocynw Pept 33.7, Total Protein 6.5, Albumin 3.7, Globulin 2.8, Albumin/Globulin Ratio 1.3, Lipase 106, D-Dimer High Sensitivty 628 H, CBC w Diff NO MAN DIFF REQ, RBC 4.59, MCV 88.9, MCH 29.0, MCHC 32.6 L, RDW 13.5, MPV 7.0 L, Gran % 87.5 H, Lymphocytes % 3.2 L, Monocytes % 9.2, Eosinophils % 0.1, Basophils % 0, Absolute Granulocytes 22.9 H, Absolute Lymphocytes 0.8 L, Absolute Monocytes 2.4 H, Absolute Eosinophils 0, Absolute Basophils 0 Microbiology Date/Time Procedure - Status Source Growth 11/02 633 Respiratory Culture - RECD LOWER RESP 11/02 633 Gram Stain - RECD LOWER RESP 11/02 1931 Blood Culture - RECD BLOOD 11/01 1921 Blood Culture - RECD BLOOD Vital Signs Date Time Temp Pulse Resp B/P B/P Pulse O2 O2 Flow FiO2 Mean Ox Delivery Rate 11/02 0834 88 151/86 11/02 0655 97.8 88 20 151/86 92 11/02 0037 115 160/100 11/01 2300 Room Air 11/01 2258 98.5 115 20 160/100 92 Room Air 11/01 2243 108 18 160/90 95 Room Air 11/01 2006 113 20 179/83 94 Room Air 11/01 1810 99.2 106 18 153/90 94 Room Air Antibiotics started.
[2017-11-02 11:03] LABS: ABSOLUTE BASOPHIL COUNT 0 /CUMM (0.0-0.2); ABSOLUTE EOSINOPHIL COUNT 0 /CUMM (0.0-0.7); ABSOLUTE GRANULOCYTE CT 19.9 /CUMM (1.4-6.5); ABSOLUTE LYMPH COUNT 0.6 /CUMM (1.2-3.4); ABSOLUTE MONOCYTE COUNT 0.8 /CUMM (0.10-0.60); BASOPHIL % 0 % (0.0-2.0); EOSINOPHIL % 0 % (0-5); HEMATOCRIT 37.5 % (37-47); MEAN CORPUSCULAR HGB 29.2 PG (27.0-31.0); MEAN CORPUSCULAR HGB CONC 33.1 G/DL (33.0-37.0); MEAN CORPUSCULAR VOLUME 88.1 FL (81.0-99.0); MEAN PLATELET VOLUME 7.6 FL (7.4-10.4); PLATELET COUNT 482 /CUMM (130-400); RBC DISTRIBUTION WIDTH 13.2 % (11.5-14.5); RED BLOOD CELL CT 4.26 /CUMM (4.20-5.40); WHITE BLOOD CELL COUNT 21.3 /CUMM (4.8-10.8)
[2017-11-02 11:56] LABS: GRANULOCYTE % 93.5 % (42.2-75.2)
--- NOTE | 2017-11-02 13:25 | Cons- Pulmonary ---
General Information and HPI Consulting Request Date of Consult: 11/02/17 Requested By: Bogdan Reason for Consult: Left pleural effusion left pneumonia History of Present Illness: Patient is 52-year-old woman multiple sclerosis regularly receiving IV Solu- Medrol admitted with increasing cough left posterior chest pain and found to have left lower lobe infiltrate and loculated pleural effusion with leukocytosis. She was seen in the outpatient setting and received a course of outpatient antibiotics but failed to improve, Allergies/Medications Allergies: Coded Allergies: NO KNOWN ALLERGIES (06/23/14) Home Med List: Albuterol Sulfate (Proair Hfa) 90 MCG HFA.AER.AD 2 PUF INH Q4-6 PRN PRN SHORTNESS OF BREATH (Reported) Amlodipine Besylate 5 MG TABLET 1 TAB PO DAILY HEART (Reported) Atorvastatin Calcium 10 MG TABLET 1 TAB PO DAILY CHOLESTEROL (Reported) Azithromycin (Zithromax) 500 MG TABLET 1 TAB PO DAILY BRONCHITIS Beclomethasone Dipropionate (QVAR) 80 MCG AER.W.ADAP 2 PUF INH BID BREATHING PROBLEMS (Reported) Benzonatate (Tessalon Perle) 100 MG CAPSULE 1 CAP PO TID PRN COUGH Codeine Phosphate/Guaifenesi (Cheratussin AC Syrup) 10 MG-100 MG/5 ML LIQUID 10 ML PO BID PRN COUGH Dalfampridine (Ampyra) 10 MG TAB.ER.12H 1 TAB PO BID UNKNOWN (Reported) Dextroamphetamine/Amphetamine (Dextroamp-Amphetamin 10 MG Tab) 10 MG TABLET 1 TAB PO TID FATIGUE (Reported) Diazepam (Valium) 5 MG TABLET 1 TAB PO BIDP PRN MS HUG Ergocalciferol (Vitamin D2) (Vitamin D2) 50,000 UNIT CAPSULE 1 CAP PO QW VITAMIN SUPPORT (Reported) Fluticasone/Vilanterol (Breo Ellipta 100-25 Mcg INH) (Unknown Strength) BLST.W.DEV (Unknown Dose) PO DAILY SHORTNESS OF BREATH (Reported) Gabapentin 100 MG CAPSULE 1 CAP PO BID SPASMS (Reported) Gabapentin 300 MG CAPSULE 1 CAP PO QPM SPASMS (Reported) Levothyroxine Sodium 50 MCG TABLET 1 TAB PO DAILY AC THYROID (Reported) Methylprednisolone. (Medrol) 4 MG TAB.DS.PK 1 DP PO AD INFLAMMATION 6 on day 1 then reduce by one tablet daily until gone Review of Systems Review of Systems Constitutional: Denies: chills, fever. Cardiovascular: Reports: chest pain. Denies: edema. Respiratory: Reports: cough, sputum production. Denies: hemoptysis, short of breath. GI: Denies: abdominal pain, diarrhea, melena. 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 Psychosocial History Where Do You Live? Home Primary Language: Argentine Smoking Status: Never Smoked ETOH Use: denies use Illicit Drug Use: denies illicit drug use Functional Ability Ambulation: walker Exam & Diagnostic Data Last 24 Hrs of Vital Signs/I&O Vital Signs Date Time Temp Pulse Resp B/P B/P Pulse O2 O2 Flow FiO2 Mean Ox Delivery Rate 11/02 1137 94 Room Air 11/02 1130 Room Air 11/02 0834 88 151/86 11/02 0800 92 Room Air 11/02 0655 97.8 88 20 151/86 92 11/02 0037 115 160/100 11/01 2300 Room Air 11/01 2258 98.5 115 20 160/100 92 Room Air 11/01 2243 108 18 160/90 95 Room Air 11/01 2006 113 20 179/83 94 Room Air 11/01 1810 99.2 106 18 153/90 94 Room Air Intake & Output 11/02 1600 11/02 0800 11/02 0000 Intake Total 260 1000 Output Total 300 Balance -40 1000 Intake, IV 20 1000 Intake, Oral 240 Output, Urine 300 Patient 235 lb Weight Weight Bed scale Measurement Method Room air oxygen saturation 94% HNT exam shows non-not the exam for chest shows decreased breath sounds left posterior chest there no localized wheezes or occasional crackles cardiac exam shows regular S1 and S2 without murmurs abdomen is soft nontender there's no edema Last 48 Hrs of Labs/Domenico: Laboratory Tests 11/02/17 0939: RBC 4.26, MCV 88.1, MCH 29.2, MCHC 33.1, RDW 13.2, MPV 7.6, Gran % 93.5 H, Lymphocytes % 2.7 L, Monocytes % 3.8, Eosinophils % 0, Basophils % 0, Absolute Granulocytes 19.9 H, Absolute Lymphocytes 0.6 L, Absolute Monocytes 0.8 H, Absolute Eosinophils 0, Absolute Basophils 0 11/02/17 0711: Anion Gap 13, Estimated GFR > 60, BUN/Creatinine Ratio 23.3, Total Bilirubin 0.4 , Direct Bilirubin 0.2, AST 25, ALT 57 H, Alkaline Phosphatase 104, Total Protein 5.8 L, Albumin 3.2 L 11/02/17 0044: Troponin I < 0.01 11/02/17 0044: Lactic Acid 1.8 11/01/17 1840: Anion Gap 12, Estimated GFR > 60, BUN/Creatinine Ratio 16.7, Glucose 136 H, Lactic Acid 1.3, Calcium 9.7, Total Bilirubin 0.9, AST 38 H, ALT 58 H, Alkaline Phosphatase 100, Troponin I < 0.01, Bav-K-Miolwttzwdh Pept 33.7, Total Protein 6.5, Albumin 3.7, Globulin 2.8, Albumin/Globulin Ratio 1.3, Lipase 106, D-Dimer High Sensitivty 628 H, CBC w Diff NO MAN DIFF REQ, RBC 4.59, MCV 88.9, MCH 29.0, MCHC 32.6 L, RDW 13.5, MPV 7.0 L, Gran % 87.5 H, Lymphocytes % 3.2 L, Monocytes % 9.2, Eosinophils % 0.1, Basophils % 0, Absolute Granulocytes 22.9 H, Absolute Lymphocytes 0.8 L, Absolute Monocytes 2.4 H, Absolute Eosinophils 0, Absolute Basophils 0 Assessment/Plan Impression/Plan: 52-year-old woman who presents with cough productive of discolored sputum found to have left lower lobe pneumonia complicated by what appears to be a loculated pleural effusion. He has significant leukocytosis and loculated appearing nature of her effusion recommendation is made for diagnostic and therapeutic thoracentesis with placement of a drainage catheter. Pleural fluid should be sent for routine culture pH chemistries cell count and differential plan is been discussed with housestaff patient and family. Coagulation studies will be necessary and should be ordered stat Consult Acknowledgment - Thank you for your consult request.
[2017-11-02 15:01] LABS: PT 14.6 SEC (9.4-12.5); PTT 27 SEC (25-37)
[2017-11-02 15:18] VITALS: BP 138/76
--- NOTE | 2017-11-02 15:20 | Cons- Infect Disease ---
General Information and HPI Consulting Request Date of Consult: 11/02/17 Requested By: Kush Castanon MD Reason for Consult: Pneumonia Source of Information: patient History of Present Illness: This is a 52-year-old woman with a history of multiple sclerosis, on Solumedrol 1000 mg monthly, with her most recent dose given 2 weeks prior to admission, hypertension, hyperlipidemia, hypothyroidism, asthma and recurrent pneumonia, treated several months prior to admission with Keflex, with an intermittent cough since then, seen in the emergency room twice on the day prior to admission for increased cough, productive of yellow sputum, shortness of breath and left- sided chest pain, found to be afebrile with a chest x-ray revealing a small left effusion and underlying atelectasis and a CT of the abdomen and pelvis revealing cholelithiasis, a left lower lobe consolidation and a small left pleural effusion, discharged on Azithromycin and a Medrol pack, admitted on November 01 after returning to the emergency room with persistent left-sided chest pain and cough. On admission she was afebrile. Laboratory data revealed a white blood cell count of 26,000, BUN/creatinine 10 and 0.6, AST/ALT 38 and 58, d-dimer 628. CTA of the chest revealed partial opacification of the left lower lobe with mild subsegmental atelectasis and a small to moderate pleural effusion, with no evidence of any pulmonary emboli. She was begun on Ceftriaxone and Azithromycin and given 1 dose of Solumedrol. She has remained afebrile since admission. She is scheduled for a left thoracentesis later today. She does note occasional difficulty swallowing prior to admission but has had no episodes of loss of consciousness. Allergies/Medications Allergies: Coded Allergies: NO KNOWN ALLERGIES (06/23/14) Home Med List: Albuterol Sulfate (Proair Hfa) 90 MCG HFA.AER.AD 2 PUF INH Q4-6 PRN PRN SHORTNESS OF BREATH (Reported) Amlodipine Besylate 5 MG TABLET 1 TAB PO DAILY HEART (Reported) Atorvastatin Calcium 10 MG TABLET 1 TAB PO DAILY CHOLESTEROL (Reported) Azithromycin (Zithromax) 500 MG TABLET 1 TAB PO DAILY BRONCHITIS Beclomethasone Dipropionate (QVAR) 80 MCG AER.W.ADAP 2 PUF INH BID BREATHING PROBLEMS (Reported) Benzonatate (Tessalon Perle) 100 MG CAPSULE 1 CAP PO TID PRN COUGH Codeine Phosphate/Guaifenesi (Cheratussin AC Syrup) 10 MG-100 MG/5 ML LIQUID 10 ML PO BID PRN COUGH Dalfampridine (Ampyra) 10 MG TAB.ER.12H 1 TAB PO BID UNKNOWN (Reported) Dextroamphetamine/Amphetamine (Dextroamp-Amphetamin 10 MG Tab) 10 MG TABLET 1 TAB PO TID FATIGUE (Reported) Diazepam (Valium) 5 MG TABLET 1 TAB PO BIDP PRN MS HUG Ergocalciferol (Vitamin D2) (Vitamin D2) 50,000 UNIT CAPSULE 1 CAP PO QW VITAMIN SUPPORT (Reported) Fluticasone/Vilanterol (Breo Ellipta 100-25 Mcg INH) (Unknown Strength) BLST.W.DEV (Unknown Dose) PO DAILY SHORTNESS OF BREATH (Reported) Gabapentin 100 MG CAPSULE 1 CAP PO BID SPASMS (Reported) Gabapentin 300 MG CAPSULE 1 CAP PO QPM SPASMS (Reported) Levothyroxine Sodium 50 MCG TABLET 1 TAB PO DAILY AC THYROID (Reported) Methylprednisolone. 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 Psychosocial History Where Do You Live? Home Primary Language: Romanian Smoking Status: Never Smoked ETOH Use: denies use Illicit Drug Use: denies illicit drug use Functional Ability Ambulation: walker Review of Systems Review of Systems Neurological/Psychological: Reports: tingling (RUE), weakness (right sided). All Other Systems: Reviewed and Negative Exam & Diagnostic Data Last 24 Hrs of Vital Signs/I&O Vital Signs Date Time Temp Pulse Resp B/P B/P Pulse O2 O2 Flow FiO2 Mean Ox Delivery Rate 11/02 1137 94 Room Air 11/02 1130 Room Air 11/02 0834 88 151/86 11/02 0800 92 Room Air 11/02 0655 97.8 88 20 151/86 92 11/02 0037 115 160/100 11/01 2300 Room Air 11/01 2258 98.5 115 20 160/100 92 Room Air 11/01 2243 108 18 160/90 95 Room Air 11/01 2005 113 20 179/83 94 Room Air 11/01 1810 99.2 106 18 153/90 94 Room Air Intake & Output 11/02 1600 11/02 0800 11/02 0000 Intake Total 690 180 7118 Output Total 500 300 Balance 230 -40 1000 Intake, IV 10 20 1000 Intake, Oral 720 240 Output, Urine 500 300 Patient 235 lb 235 lb Weight Weight Bed scale Measurement Method Physical Exam Other Physical Findings: She is awake and alert in no acute distress. She is afebrile. Skin reveals no rash. HEENT exam is negative. Neck is supple with no adenopathy. Lungs decreased breath sounds at the left base; crackles at the right base. Heart regular rhythm with no murmur. Abdomen is soft, nontender with positive bowel sounds. Back no CVA tenderness. Extremities no cyanosis, clubbing or edema. Neuro mild right sided hemiparesis. Last 24 Hours of Lab Results: Laboratory Tests 11/02 11/02 11/02 11/02 11/02 1425 0939 0711 0044 0044 Chemistry Sodium (137 - 145 mmol/L) 141 Potassium (3.5 - 5.1 mmol/L) 4.6 Chloride (98 - 107 mmol/L) 103 Carbon Dioxide (22 - 30 mmol/L) 24 Anion Gap (5 - 16) 13 BUN (7 - 17 mg/dL) 14 Creatinine (0.5 - 1.0 mg/dL) 0.6 Estimated GFR (>60 ml/min) > 60 BUN/Creatinine Ratio (7 - 25 %) 23.3 Lactic Acid (0.7 - 2.1 mmol/L) 1.8 Total Bilirubin (0.2 - 1.3 mg/dL) 0.4 Direct Bilirubin (< 0.4 mg/dL) 0.2 AST (14 - 36 U/L) 25 ALT (9 - 52 U/L) 57 H Alkaline Phosphatase (<127 U/L) 104 Troponin I (< 0.11 ng/ml) < 0.01 Total Protein (6.3 - 8.2 g/dL) 5.8 L Albumin (3.5 - 5.0 g/dL) 3.2 L Coagulation PT (9.4 - 12.5 SEC) 14.6 H INR (0.90 - 1.19) 1.34 H APTT (25 - 37 SEC) 27 Hematology WBC (4.8 - 10.8 /CUMM) 21.3 H RBC (4.20 - 5.40 /CUMM) 4.26 Hgb (12.0 - 16.0 G/DL) 12.4 Hct (37 - 47 %) 37.5 MCV (81.0 - 99.0 FL) 88.1 MCH (27.0 - 31.0 PG) 29.2 MCHC (33.0 - 37.0 G/DL) 33.1 RDW (11.5 - 14.5 %) 13.2 Plt Count (130 - 400 /CUMM) 482 H MPV (7.4 - 10.4 FL) 7.6 Gran % (42.2 - 75.2 %) 93.5 H Lymphocytes % (20.5 - 51.1 %) 2.7 L Monocytes % (1.7 - 9.3 %) 3.8 Eosinophils % (0 - 5 %) 0 Basophils % (0.0 - 2.0 %) 0 Absolute Granulocytes (1.4 - 6.5 /CUMM) 19.9 H Absolute Lymphocytes (1.2 - 3.4 /CUMM) 0.6 L Absolute Monocytes (0.10 - 0.60 /CUMM) 0.8 H Absolute Eosinophils (0.0 - 0.7 /CUMM) 0 Absolute Basophils (0.0 - 0.2 /CUMM) 0 / 1840 Chemistry Sodium (137 - 145 mmol/L) 138 Potassium (3.5 - 5.1 mmol/L) 5.0 Chloride (98 - 107 mmol/L) 97 L Carbon Dioxide (22 - 30 mmol/L) 28 Anion Gap (5 - 16) 12 BUN (7 - 17 mg/dL) 10 Creatinine (0.5 - 1.0 mg/dL) 0.6 Estimated GFR (>60 ml/min) > 60 BUN/Creatinine Ratio (7 - 25 %) 16.7 Glucose (65 - 99 mg/dL) 136 H Lactic Acid (0.7 - 2.1 mmol/L) 1.3 Calcium (8.4 - 10.2 mg/dL) 9.7 Total Bilirubin (0.2 - 1.3 mg/dL) 0.9 AST (14 - 36 U/L) 38 H ALT (9 - 52 U/L) 58 H Alkaline Phosphatase (<127 U/L) 100 Troponin I (< 0.11 ng/ml) < 0.01 Uev-E-Kkojvtzubzv Pept (<125 pg/mL) 33.7 Total Protein (6.3 - 8.2 g/dL) 6.5 Albumin (3.5 - 5.0 g/dL) 3.7 Globulin (1.9 - 4.2 gm/dL) 2.8 Albumin/Globulin Ratio (1.1 - 2.2 %) 1.3 Lipase (23 - 300 U/L) 106 Coagulation D-Dimer High Sensitivty (0 - 243 ng/ml) 628 H Hematology CBC w Diff NO MAN DIFF REQ WBC (4.8 - 10.8 /CUMM) 26.2 H RBC (4.20 - 5.40 /CUMM) 4.59 Hgb (12.0 - 16.0 G/DL) 13.3 Hct (37 - 47 %) 40.8 MCV (81.0 - 99.0 FL) 88.9 MCH (27.0 - 31.0 PG) 29.0 MCHC (33.0 - 37.0 G/DL) 32.6 L RDW (11.5 - 14.5 %) 13.5 Plt Count (130 - 400 /CUMM) 507 H MPV (7.4 - 10.4 FL) 7.0 L Gran % (42.2 - 75.2 %) 87.5 H Lymphocytes % (20.5 - 51.1 %) 3.2 L Monocytes % (1.7 - 9.3 %) 9.2 Eosinophils % (0 - 5 %) 0.1 Basophils % (0.0 - 2.0 %) 0 Absolute Granulocytes (1.4 - 6.5 /CUMM) 22.9 H Absolute Lymphocytes (1.2 - 3.4 /CUMM) 0.8 L Absolute Monocytes (0.10 - 0.60 /CUMM) 2.4 H Absolute Eosinophils (0.0 - 0.7 /CUMM) 0 Absolute Basophils (0.0 - 0.2 /CUMM) 0 Last 24 Hours of Domenico Results: Blood cultures 2 November 01 negative Sputum culture November 02 pending, with gram stain revealing many white blood cells and few gram-positive rods Diagnostic Data Recent Imaging Findings: CTA of the chest November 01 revealed partial opacification of the left lower lobe with mild subsegmental atelectasis and a small to moderate pleural effusion, with no evidence of any pulmonary emboli. Assessment/Plan Assessment/Plan Impression: This is a 52-year-old woman with a history of multiple sclerosis, asthma and recurrent pneumonia, treated several months prior to admission with Keflex, with an intermittent cough since then, begun on Azithromycin and a Medrol pack one day prior to admission because of an increased cough, shortness of breath and left-sided chest pain, with a CT of the abdomen and pelvis revealing left lower lobe consolidation with a left pleural effusion, admitted on November 01 because of a persistent cough and left sided chest pain, found to be afebrile with a marked leukocytosis and with a CTA of the chest revealing partial opacification of the left lower lobe with a small to moderate pleural effusion. Her clinical presentation is suggestive of a pneumonia, with the effusion worrisome for either a complicated parapneumonic effusion or an empyema given the chronicity of her symptoms. Her CT scan suggests atelectasis rather than consolidation but it may be difficult to rule out an underlying pneumonia with the effusion. Her leukocytosis may be in part secondary to the Medrol pack she received on the day prior to admission but is more likely secondary to the presumed pneumonia/empyema. She does report occasional dysphagia, which does put her at increased risk for aspiration, which may be the most likely etiology of her pneumonia. Her current antibiotic regimen could be adjusted to optimize coverage for aspiration (i.e. to provide anaerobic coverage) pending further evaluation. Suggestion: 1. Await left thoracentesis 2. Urine for strep pneumo antigen and Legionella antigen 3. Discontinue Ceftriaxone 4. Begin Unasyn 3 g IV every 6 hours 5. Continue Azithromycin pending above Consult Acknowledgment - Thank you for your consult request.
--- NOTE | 2017-11-02 17:39 | ULTRASOUND REPORT ---
CLINICAL HISTORY: This patient is a 52-year-old female with possible left-sided empyema. The patient is referred to interventional radiology for ultrasound-guided thoracentesis. PROCEDURE: Ultrasound-guided left-sided thoracentesis and chest tube placement. COMPARISON: None. ACCESS: 6 Fr [id number] closed needle/catheter system. PROCEDURALIST: Oracio Graf D.O.. MEDICATIONS: 20 mL of 1% lidocaine SQ. COMPLICATIONS: None. ESTIMATED BLOOD LOSS: <5 mL. SPECIMENS: Specimens were sent for analysis as requested. PROCEDURE NOTE: Appropriate pre-procedure medical history and imaging studies were reviewed. Informed consent was obtained from the patient prior to the procedure. During this process, the procedure and potential alternatives were explained along with the intended outcome and benefits. The risks of the procedure, including the possibility of an unsuccessful procedure, as well as the risk of not doing the procedure, were discussed. The patient was given the opportunity to ask questions regarding the procedure and appeared competent to make decisions. A signed consent form documenting this discussion was placed in the medical record. A time-out procedure was performed. The patient was brought to the ultrasound department and placed in the seated position. Ultrasound images of the left thorax were obtained to localize a small complex pleural effusion. Images were permanently saved to the record. An area of the patient's left back was prepped and draped in the standard sterile fashion. 20 mL of 1% lidocaine was used to obtain local anesthesia of the skin and deeper tissues. A standard small-bore needle was introduced to sample fluid and demonstrated a safe access route. There was no evidence of traversing adjacent organs or vascular structures. An 8 Fr [id number]-M-Olrkxifn closed needle/catheter system was utilized for access. 200 mL of cloudy dimitri-colored fluid was aspirated. The catheter was sutured to the skin with a 0 silk suture and StatLock device and attached to an Atrium device. A sterile dressing was applied. PH was obtained which was 7.1. The patient tolerated the procedure well without evidence of immediate complications. FINDINGS: Small complex left pleural effusion. PH was obtained which was 7.18. IMPRESSION: Successful left ultrasound-guided therapeutic and diagnostic thoracentesis with chest tube placement. PLAN: 1. A postprocedure chest x-ray was ordered and will be dictated separately. 2. The patient was stable after the procedure and transferred to their room with instructions after standard monitoring.
--- NOTE | 2017-11-02 19:29 | RADIOLOGY REPORT ---
EXAMINATION:\H\ \N\XR CHEST CLINICAL INFORMATION: Status post thoracentesis with chest tube placement. COMPARISON: CTA chest 11/01/2017. TECHNIQUE: Frontal view of the chest was obtained. FINDINGS: There is a left chest tube catheter tip located in the left CP angle. Mild haziness in the left lung base likely from pleural thickening and/or combination of effusion is noted. No pneumothorax seen. Otherwise the rest of the left lung and the entire right lung is expanded and clear. IMPRESSION: No visible pneumothorax. There is a chest catheter located within the left CP angle. There is mild haziness in the left lung base likely a combination of small residual effusion and pleural thickening. Minimal atelectasis left lung base is noted. Rest of the lungs are clear.
[2017-11-02 22:01] VITALS: BP 159/97
[2017-11-03 06:57] VITALS: BP 157/99
--- NOTE | 2017-11-03 07:07 | PN- Housestaff ---
Subjective Follow-up For: pneumonia empyema Subjective: afebrile on antibiotics 20cc out overnight from pleural catheter no supplemental oxygen requirement complaining of productive cough with white combined with green/yellow mucous Review of Systems Constitutional: Reports: see HPI. Objective Last 24 Hrs of Vital Signs/I&O Vital Signs Date Time Temp Pulse Resp B/P B/P Pulse O2 O2 Flow FiO2 Mean Ox Delivery Rate 11/03 1030 94 Room Air 11/03 0859 86 157/99 11/03 0657 97.8 86 20 157/99 96 Room Air 11/03 0000 Room Air 11/02 2201 97.9 94 18 159/97 97 Room Air 11/02 1835 97 Room Air 11/02 1600 97 Room Air 11/02 1518 97.7 92 20 138/76 97 Room Air Intake & Output 11/03 1600 11/03 0800 11/03 0000 Intake Total 740 480 Output Total 10 208 Balance 730 272 Intake, IV 260 Intake, Oral 480 480 Number 1 Bowel Movements Output, Chest 10 8 Tube Drainage Output, Other 200 Physical Exam General Appearance: Alert, Oriented X3, Cooperative, No Acute Distress, obese, no supplemental oxygen Cardiovascular: Regular Rate, Normal S1, Normal S2, No Murmurs Lungs: Clear to Auscultation, Normal Air Movement, Left pleural catheter in place Abdomen: Normal Bowel Sounds, Soft, No Tenderness, No Masses Extremities: No Clubbing, No Cyanosis, No Edema, Normal Pulses Current Medications: Current Medications Sig/Ana Rosa Start time Last Medication Dose Route Stop Time Status Admin Albuterol Sulfate 3 ML BID 11/02 2100 AC 11/03 INH 1036 Albuterol Sulfate 2 PUF Q4-6 PRN PRN 11/01 2215 AC INH Amlodipine Besylate 5 MG DAILY 11/02 09 AC 11/03 PO 0859 Ampicillin Sodium/ 3,000 MG Q6 11/02 1800 AC 11/03 Sulbactam Sodium IV 0514 Sodium Chloride 100 ML Atorvastatin Calcium 10 MG 1700 11/02 1700 AC 11/02 PO 1729 Azithromycin 500 MG DAILY 11/02 09 DC 11/03 Sodium Chloride 250 ML IV 0900 Ceftriaxone Sodium 1,000 MG DAILY 11/02 0900 DC 11/02 IV 0834 Diazepam 5 MG ONCE ONE 11/02 1914 DC 11/02 PO 11/02 Enoxaparin Sodium 40 MG DAILY 11/02 0900 AC 11/03 SC 0858 Gabapentin 100 MG DAILY 11/02 0900 AC 11/03 PO 0858 Gabapentin 300 MG QPM 11/01 2300 AC 11/02 PO 2101 Guaifenesin 600 MG Q12 11/01 2205 AC 11/03 PO 0858 Ibuprofen 600 MG Q8P PRN 11/01 2215 AC 11/03 PO 0903 Levothyroxine Sodium 0.05 MG DAILY AC 11/02 0700 AC 11/03 PO 0514 Lidocaine 1 ML .STK-MED ONE 11/02 1652 DC ID 11/02 1653 Last 24 Hrs of Lab/Domenico Results Last 24 Hrs of Labs/Mics: Laboratory Tests 11/03/17 0719: Anion Gap 11, Estimated GFR > 60, BUN/Creatinine Ratio 26.7 H, Total Bilirubin 0.5, Direct Bilirubin 0.2, AST 100 H, ALT 120 H, Alkaline Phosphatase 113, Lactate Dehydrogenase 984 H, Total Protein 5.8 L, Albumin 3.1 L, CBC w Diff NO MAN DIFF REQ, RBC 4.46, MCV 88.4, MCH 29.0, MCHC 32.8 L, RDW 13.5, MPV 7.2 L, Gran % 77.3 H, Lymphocytes % 10.2 L, Monocytes % 11.0 H, Eosinophils % 1.2 , Basophils % 0.3, Absolute Granulocytes 12.1 H, Absolute Lymphocytes 1.6, Absolute Monocytes 1.7 H, Absolute Eosinophils 0.2, Absolute Basophils 0.1 11/02/17 1630: Fluid WBC 98290 H, Fld Total RBCs Counted 50520 H 11/02/17 1630: Lymphocytes 4, % Normal PMNs 86, Misc Hematology Test , Fluid Glucose 103, Fluid Total Protein 4.2, Fluid Albumin 2.3, Fluid LDH 4427, Fluid Amylase < 30 11/02/17 1628: Phlebotomy Draw Site L THORACENTESIS, Pleural pH 7.184 11/02/17 1425: PT 14.6 H, INR 1.34 H, APTT 27 Microbiology 11/02 1630 BODY FLUID: Body Fluid Culture - RES 11/02 163 BODY FLUID: Gram Stain - RES Assessment/Plan Assessment: 52 year old female with PMH of MS on solumedrol, Ampyra, and rituximab, hypothyroidism, HTN, HLD, recurrent pneumonia, most recently 07/2017 treated as outpatient presented with complaints of severe cough, dyspnea, and pleuritic chest pain. Pneumonia and parapneumonic effusion, empyema: Chest CTA-moderate left pleural effusion tracking along the major fissure along with an additional component along the posterior upper left hemithorax which appears loculated. Afebrile on presentation, leukocytosis improving on ceftriaxone and azithromycin s/p diagnostic and therapeutic thoracentesis with 200cc removed, catheter output 20cc 82,000 WBC, pH <7.2 high LDH, gram stain showed WBCs and culture negative so far Pulmonology and infectious disease consulted, appreciate recommendations TRC evaluation, continue mucinex and nebulized albuterol Repeat CT scan today shows catheter is out of position, now in the skin, will be removed Cardiothoracic surgery consulted today Case discussed with IR and CT surgery, remaining collection after thoracentesis yesterday is too small for catheter to be replaced safely. Tentative plan is to monitor the patient over the weekend on antibiotics and repeat imaging Monday unless her clinical condition worsens. If the pleural fluid reaccumulates, will consider chest tube or drainage catheter at that time HTN: Continue norvasc HLD: Continue atorvastatin Hypothyroidism: Continue synthroid MS: Continue ampyra 10mg po bid Heart healthy diet DVT ppx-lovenox Full code Problem List: 1. Pleural effusion 2. Pneumonia Pain Ratin Pain Location: n/a Pain Goal: Pain 4 or less Pain Plan: prn Tomorrow's Labs & Rationales: cbc
[2017-11-03 08:20] LABS: ABSOLUTE BASOPHIL COUNT 0.1 /CUMM (0.0-0.2); ABSOLUTE EOSINOPHIL COUNT 0.2 /CUMM (0.0-0.7); ABSOLUTE GRANULOCYTE CT 12.1 /CUMM (1.4-6.5); ABSOLUTE LYMPH COUNT 1.6 /CUMM (1.2-3.4); ABSOLUTE MONOCYTE COUNT 1.7 /CUMM (0.10-0.60); BASOPHIL % 0.3 % (0.0-2.0); EOSINOPHIL % 1.2 % (0-5); GRANULOCYTE % 77.3 % (42.2-75.2); HEMATOCRIT 39.5 % (37-47); MEAN CORPUSCULAR HGB CONC 32.8 G/DL (33.0-37.0); MEAN CORPUSCULAR VOLUME 88.4 FL (81.0-99.0); MEAN PLATELET VOLUME 7.2 FL (7.4-10.4); PLATELET COUNT 535 /CUMM (130-400); RBC DISTRIBUTION WIDTH 13.5 % (11.5-14.5); RED BLOOD CELL CT 4.46 /CUMM (4.20-5.40); WHITE BLOOD CELL COUNT 15.6 /CUMM (4.8-10.8)
--- NOTE | 2017-11-03 08:46 | PN- Pulmonary ---
Subjective HPI/Critical Care Issues: Patient underwent thoracentesis of 200 mL of cloudy fluid which is exudative in nature and suggestive of empyema based on white count though pH is higher than typically seen. There is minimal drainage in the Pleur-evac. Objective Current Medications: Current Medications Sig/Ana Rosa Start time Last Medication Dose Route Stop Time Status Admin Albuterol Sulfate 3 ML BID 11/02 2100 AC 11/02 INH 1835 Albuterol Sulfate 2 PUF Q4-6 PRN PRN 11/01 2215 AC INH Amlodipine Besylate 5 MG DAILY 11/02 0900 AC 11/02 PO 0834 Ampicillin Sodium/ 3,000 MG Q6 11/02 1800 AC 11/03 Sulbactam Sodium IV 0514 Sodium Chloride 100 ML Atorvastatin Calcium 10 MG 1700 11/02 1700 AC 11/02 PO 1729 Azithromycin 500 MG DAILY 11/02 0900 AC 11/02 Sodium Chloride 250 ML IV 0834 Ceftriaxone Sodium 1,000 MG DAILY 11/02 0900 DC 11/02 IV 0834 Diazepam 5 MG ONCE ONE 11/02 1914 DC 11/02 PO 11/02 191 1910 Enoxaparin Sodium 40 MG DAILY 11/02 0900 AC 11/02 SC 0835 Gabapentin 100 MG DAILY 11/02 0900 AC 11/02 PO 0834 Gabapentin 300 MG QPM 11/01 2300 AC 11/02 PO 2101 Guaifenesin 600 MG Q12 11/01 220 AC 11/02 PO 2101 Ibuprofen 600 MG .STK-MED ONE 11/02 1138 DC PO 11/02 1139 Ibuprofen 600 MG Q8P PRN 11/01 221 AC 11/02 PO 1140 Levothyroxine Sodium 0.05 MG DAILY AC 11/02 0700 AC 11/03 PO 0514 Lidocaine 1 ML .STK-MED ONE 11/02 1652 DC ID 11/02 1653 Vital Signs & I&O Last 24 Hrs of Vitals and I&O: Vital Signs Date Time Temp Pulse Resp B/P B/P Pulse O2 O2 Flow FiO2 Mean Ox Delivery Rate 11/03 0657 97.8 86 20 157/99 96 Room Air 11/03 0000 Room Air 11/02 2200 97.9 94 18 159/97 97 Room Air 11/02 1835 97 Room Air 11/02 1600 97 Room Air 11/02 1518 97.7 92 20 138/76 97 Room Air 11/02 1137 94 Room Air 11/02 1130 Room Air Intake & Output 11/03 1600 11/03 0800 11/03 0000 Intake Total 740 480 Output Total 10 208 Balance 730 272 Intake, IV 260 Intake, Oral 480 480 Number 1 Bowel Movements Output, Chest 10 8 Tube Drainage Output, Other 200 Room oximetry 96% exam of the chest continues to show diminished breath sounds over the left posterior chest cardiac exam shows a regular S1 and S2 without murmurs Impression/Plan Impression/Plan Impression/Plan: 52-year-old woman with a new acquired pneumonia complicated by probable empyema status post drainage catheter insertion. Recommendations: Repeat noncontrast CT scan of the chest to determine whether lytic therapy is necessary for loculated. If loculated pleural effusion remains CT surgery evaluation
--- NOTE | 2017-11-03 11:33 | ECHOCARDIOGRAM REPORT ---
LUPE STERLING Age: 52 : 1965 Gender: F Exam Date: 11/02/2017 19:05 Exam Location: [address] [place] [address] Ht (in): 67 Wt (lb): 242 BSA: 2.33 BP: 151 / 86 Ordering Physician: Gricelda Thompson MD Referring Physician: Gricelda Thompson MD Technologist: Rosmery Delgdao [facility] Room Number: 209-02 Indications: PALPITATIONS Rhythm: Sinus Technical Quality: difficult FINDINGS Left Ventricle Normal left ventricular size, and systolic function with no obvious regional wall motion abnormalities. Concentric hypertrophy. Abnormal relaxation filling pattern of the left ventricle for age (stage 1 diastolic dysfunction). . The ejection fraction is visually estimated at 70 %. Right Ventricle The right ventricle is normal in size and function. Right Atrium The right atrium is normal in size. Left Atrium The left atrium is normal in size. The interatrial septum is intact. Mitral Valve The mitral valve is normal in structure and function. There is no mitral regurgitation. Aortic Valve Tricuspid aortic valve with mild sclerosis and a mean gradient of 11mmHg, which is very mild. There is no aortic regurgitation. Tricuspid Valve The tricuspid valve is normal in structure and function. There is trace tricuspid regurgitation. Pulmonary artery systolic pressure is normal. Pulmonic Valve Structurally normal pulmonic valve. There is no pulmonic regurgitation. Pericardium Epicardial fat, without effusion. No pleural effusion. Great Vessels Normal aortic root dimension. The aortic arch and great vessels are well seen and are normal. CONCLUSIONS Normal left ventricular size, and systolic function with no obvious regional wall motion abnormalities. Concentric hypertrophy. Abnormal relaxation filling pattern of the left ventricle for age (stage 1 diastolic dysfunction). The ejection fraction is visually estimated at 70 %. The right ventricle is normal in size and function. Tricuspid aortic valve with mild sclerosis and a mean gradient of 11mmHg, which is very mild. There is no aortic regurgitation. Pulmonary artery systolic pressure is normal. Epicardial fat, without effusion. Normal aortic root dimension. Bandar Espinoza M.D. (Electronically Signed) Final Date: 03 November 2017 11:32 MEASUREMENTS (Male / Female) Normal Values 2D ECHO LV Diastolic Diameter PLAX 4.2 cm 4.2 - 5.9 / 3.9 - 5.3 cm LV Systolic Diameter PLAX 2.0 cm 2.1 - 4.0 cm LV Fractional Shortening PLAX 52.4 % 25 - 46 % LV Ejection Fraction 2D Teich 83.8 % IVS Diastolic Thickness 1.6 cm LVPW Diastolic Thickness 1.5 cm LV Relative Wall Thickness 0.7 LVOT Diameter 2.1 cm Aortic Root Diameter 3.1 cm LA Systolic Diameter LX 3.6 cm 3.0 - 4.0 / 2.7 - 3.8 cm Ascending Aorta Diameter 3.3 cm DOPPLER AV Peak Velocity 212.0 cm/s AV Peak Gradient 18.0 mmHg AV Mean Velocity 158.0 cm/s AV Mean Gradient 11.0 mmHg AV Velocity Time Integral 38.5 cm LVOT Peak Velocity 196.0 cm/s LVOT Peak Gradient 15.4 mmHg LVOT Mean Velocity 132.0 cm/s LVOT Mean Gradient 8.0 mmHg LVOT Velocity Time Integral 43.5 cm LVOT Stroke Volume 150.7 cm AV Area Cont Eq vti 3.9 cm AV Area Cont Eq pk 3.2 cm MV Peak Velocity 85.8 cm/s MV Peak Gradient 2.9 mmHg MV Mean Velocity 59.1 cm/s MV Mean Gradient 2.0 mmHg Mitral E Point Velocity 66.1 cm/s Mitral A Point Velocity 80.9 cm/s Mitral E to A Ratio 0.8 MV PHT Velocity 86.3 cm/s MV Deceleration [place] 459.0 cm/s MV Pressure Half Time 56.4 ms MV Area PHT 3.9 cm MV Deceleration Time 182.0 ms TR Peak Velocity 160.0 cm/s TR Peak Gradient 10.2 mmHg Right Atrial Pressure 5.0 mmHg Pulmonary Artery Systolic Pressu 15.2 mmHg Right Ventricular Systolic Press 15.2 mmHg PV Peak Velocity 108.0 cm/s PV Peak Gradient 4.7 mmHg PV Mean Velocity 77.3 cm/s PV Mean Gradient 3.0 mmHg PV Velocity Time Integral 22.8 cm LV E' Lateral Velocity 4.7 cm/s Mitral E to LV E' Lateral Ratio 14.1 LV E' Septal Velocity 7.5 cm/s Mitral E to LV E' Septal Ratio 8.8
--- NOTE | 2017-11-03 11:41 | PN- Att Addend ---
Attending Addendum Attending Brief Note Patient feeling better today sitting in the chair. Patient vital signs are stable no fever. Appreciate pulmonary's input and recommendations. Patient went for a thoracentesis ended up with a chest tube in the fluid seems to be an empyema. We will continue treatment as outlined by pulmonary and continue observation. Intake & Output 11/03 1600 11/03 0400 11/02 1600 11/02 0400 11/01 1600 11/01 0400 Intake Total 740 036 713 5066 Output Total 10 208 800 Balance 730 149 652 5821 Intake, IV 105 75 4913 Intake, Oral 480 480 960 Number 1 Bowel Movements Output, Chest 10 8 Tube Drainage Output, Other 200 Output, Urine 800 Patient 235 lb 235 lb Weight Weight Bed scale Measurement Method Current Medications Sig/Ana Rosa Start time Last Medication Dose Route Stop Time Status Admin Albuterol Sulfate 3 ML BID 11/02 2100 AC 11/03 INH 1036 Albuterol Sulfate 2 PUF Q4-6 PRN PRN 11/01 2214 AC INH Amlodipine Besylate 5 MG DAILY 11/02 09 AC 11/03 PO 0859 Ampicillin Sodium/ 3,000 MG Q6 11/02 1800 AC 11/03 Sulbactam Sodium IV 0514 Sodium Chloride 100 ML Atorvastatin Calcium 10 MG 1700 11/02 1700 AC 11/02 PO 1729 Azithromycin 500 MG DAILY 11/02 09 DC 11/03 Sodium Chloride 250 ML IV 0900 Ceftriaxone Sodium 1,000 MG DAILY 11/02 0900 DC 11/02 IV 0834 Diazepam 5 MG ONCE ONE 11/02 1914 DC 11/02 PO 11/02 191 191 Enoxaparin Sodium 40 MG DAILY 11/02 09 AC 11/03 SC 0858 Gabapentin 100 MG DAILY 11/02 0900 AC 11/03 PO 0858 Gabapentin 300 MG QPM 11/01 2300 AC 11/02 PO 2101 Guaifenesin 600 MG Q12 11/01 2205 AC 11/03 PO 0858 Ibuprofen 600 MG Q8P PRN 11/01 2215 AC 11/03 PO 0903 Levothyroxine Sodium 0.05 MG DAILY AC 11/02 0700 AC 11/03 PO 0514 Lidocaine 1 ML .STK-MED ONE 11/02 1652 DC ID 11/02 1653 Laboratory Tests 11/03/17 0719: Anion Gap 11, Estimated GFR > 60, BUN/Creatinine Ratio 26.7 H, Total Bilirubin 0.5, Direct Bilirubin 0.2, AST 100 H, ALT 120 H, Alkaline Phosphatase 113, Lactate Dehydrogenase 984 H, Total Protein 5.8 L, Albumin 3.1 L, CBC w Diff NO MAN DIFF REQ, RBC 4.46, MCV 88.4, MCH 29.0, MCHC 32.8 L, RDW 13.5, MPV 7.2 L, Gran % 77.3 H, Lymphocytes % 10.2 L, Monocytes % 11.0 H, Eosinophils % 1.2 , Basophils % 0.3, Absolute Granulocytes 12.1 H, Absolute Lymphocytes 1.6, Absolute Monocytes 1.7 H, Absolute Eosinophils 0.2, Absolute Basophils 0.1 11/02/17 1630: Fluid WBC 78263 H, Fld Total RBCs Counted 58864 H 11/02/17 1630: Lymphocytes 4, % Normal PMNs 86, Misc Hematology Test , Fluid Glucose 103, Fluid Total Protein 4.2, Fluid Albumin 2.3, Fluid LDH 4427, Fluid Amylase < 30 11/02/17 1628: Phlebotomy Draw Site L THORACENTESIS, Pleural pH 7.184 11/02/17 1425: PT 14.6 H, INR 1.34 H, APTT 27 11/02/17 0939: RBC 4.26, MCV 88.1, MCH 29.2, MCHC 33.1, RDW 13.2, MPV 7.6, Gran % 93.5 H, Lymphocytes % 2.7 L, Monocytes % 3.8, Eosinophils % 0, Basophils % 0, Absolute Granulocytes 19.9 H, Absolute Lymphocytes 0.6 L, Absolute Monocytes 0.8 H, Absolute Eosinophils 0, Absolute Basophils 0 11/02/17 0711: Anion Gap 13, Estimated GFR > 60, BUN/Creatinine Ratio 23.3, Total Bilirubin 0.4 , Direct Bilirubin 0.2, AST 25, ALT 57 H, Alkaline Phosphatase 104, Total Protein 5.8 L, Albumin 3.2 L 11/02/17 0044: Troponin I < 0.01 11/02/17 0044: Lactic Acid 1.8 11/01/17 1840: Anion Gap 12, Estimated GFR > 60, BUN/Creatinine Ratio 16.7, Glucose 136 H, Lactic Acid 1.3, Calcium 9.7, Total Bilirubin 0.9, AST 38 H, ALT 58 H, Alkaline Phosphatase 100, Troponin I < 0.01, Ijj-[id number] Pept 33.7, Total Protein 6.5, Albumin 3.7, Globulin 2.8, Albumin/Globulin Ratio 1.3, Lipase 106, D-Dimer High Sensitivty 628 H, CBC w Diff NO MAN DIFF REQ, RBC 4.59, MCV 88.9, MCH 29.0, MCHC 32.6 L, RDW 13.5, MPV 7.0 L, Gran % 87.5 H, Lymphocytes % 3.2 L, Monocytes % 9.2, Eosinophils % 0.1, Basophils % 0, Absolute Granulocytes 22.9 H, Absolute Lymphocytes 0.8 L, Absolute Monocytes 2.4 H, Absolute Eosinophils 0, Absolute Basophils 0 Microbiology 11/02 1630 BODY FLUID: Body Fluid Culture - RES 11/02 1629 BODY FLUID: Gram Stain - RES 11/02 0634 LOWER RESP: Respiratory Culture - RES YEAST 11/02 0534 LOWER RESP: Gram Stain - RES 11/02 1931 BLOOD: Blood Culture - RES 11/01 1921 BLOOD: Blood Culture - RES Microbiology 11/02 163 BODY FLUID: Body Fluid Culture - RES 11/02 163 BODY FLUID: Gram Stain - RES 11/02 0634 LOWER RESP: Respiratory Culture - RES YEAST 11/02 0534 LOWER RESP: Gram Stain - RES 11/02 1931 BLOOD: Blood Culture - RES 11/01 1921 BLOOD: Blood Culture - RES Vital Signs Date Time Temp Pulse Resp B/P B/P Pulse O2 O2 Flow FiO2 Mean Ox Delivery Rate 11/03 1030 94 Room Air 11/03 0859 86 157/99 11/03 0657 97.8 86 20 157/99 96 Room Air 11/03 0000 Room Air 11/02 2201 97.9 94 18 159/97 97 Room Air 11/02 1835 97 Room Air 11/02 1600 97 Room Air 11/02 1518 97.7 92 20 138/76 97 Room Air
--- NOTE | 2017-11-03 12:27 | PN- Infect Dx ---
Subjective Subjective: Afebrile. She notes a persistent cough but her sputum is now white to clear. She has occasional discomfort in the left chest but no shortness of breath. Objective Last 24 Hrs of Vital Signs/I&O Vital Signs Date Time Temp Pulse Resp B/P B/P Pulse O2 O2 Flow FiO2 Mean Ox Delivery Rate 11/03 1030 94 Room Air 11/03 0859 86 157/99 11/03 0657 97.8 86 20 157/99 96 Room Air 11/03 0000 Room Air 11/02 2201 97.9 94 18 159/97 97 Room Air 11/02 1835 97 Room Air 11/02 1600 97 Room Air 11/02 1518 97.7 92 20 138/76 97 Room Air Intake & Output 11/03 1600 11/03 0800 11/03 0000 Intake Total 740 480 Output Total 10 208 Balance 730 272 Intake, IV 260 Intake, Oral 480 480 Number 1 Bowel Movements Output, Chest 10 8 Tube Drainage Output, Other 200 Physical Exam Other Physical Findings: She appears comfortable in no acute distress Lungs decreased breath sounds at the left base; pigtail catheter in the left chest with 200 cc removed yesterday and with no output overnight Results Last 24 Hours of Lab Results: Laboratory Tests 11/03 11/02 11/02 0719 1630 1630 Chemistry Sodium (137 - 145 mmol/L) 142 Potassium (3.5 - 5.1 mmol/L) 4.3 Chloride (98 - 107 mmol/L) 103 Carbon Dioxide (22 - 30 mmol/L) 27 Anion Gap (5 - 16) 11 BUN (7 - 17 mg/dL) 16 Creatinine (0.5 - 1.0 mg/dL) 0.6 Estimated GFR (>60 ml/min) > 60 BUN/Creatinine Ratio (7 - 25 %) 26.7 H Total Bilirubin (0.2 - 1.3 mg/dL) 0.5 Direct Bilirubin (< 0.4 mg/dL) 0.2 AST (14 - 36 U/L) 100 H ALT (9 - 52 U/L) 120 H Alkaline Phosphatase (<127 U/L) 113 Lactate Dehydrogenase (313 - 618 U/L) 984 H Total Protein (6.3 - 8.2 g/dL) 5.8 L Albumin (3.5 - 5.0 g/dL) 3.1 L Hematology CBC w Diff NO MAN DIFF REQ WBC (4.8 - 10.8 /CUMM) 15.6 H RBC (4.20 - 5.40 /CUMM) 4.46 Hgb (12.0 - 16.0 G/DL) 12.9 Hct (37 - 47 %) 39.5 MCV (81.0 - 99.0 FL) 88.4 MCH (27.0 - 31.0 PG) 29.0 MCHC (33.0 - 37.0 G/DL) 32.8 L RDW (11.5 - 14.5 %) 13.5 Plt Count (130 - 400 /CUMM) 535 H MPV (7.4 - 10.4 FL) 7.2 L Gran % (42.2 - 75.2 %) 77.3 H Lymphocytes % (20.5 - 51.1 %) 10.2 L Monocytes % (1.7 - 9.3 %) 11.0 H Eosinophils % (0 - 5 %) 1.2 Basophils % (0.0 - 2.0 %) 0.3 Absolute Granulocytes (1.4 - 6.5 /CUMM) 12.1 H Absolute Lymphocytes (1.2 - 3.4 /CUMM) 1.6 Lymphocytes (%) 4 Absolute Monocytes (0.10 - 0.60 /CUMM) 1.7 H Absolute Eosinophils (0.0 - 0.7 /CUMM) 0.2 Absolute Basophils (0.0 - 0.2 /CUMM) 0.1 % Normal PMNs (%) 86 Misc Hematology Test (%) Other Body Source Fluid WBC (0 - 5 /CUMM) 43873 H Fld Total RBCs Counted (0 /CUMM) 19149 H Fluid Glucose (mg/dL) 103 Fluid Total Protein (g/dL) 4.2 Fluid Albumin (g/dL) 2.3 Fluid LDH (U/L) 4427 Fluid Amylase (U/L) < 30 11/02 11/02 1628 1425 Coagulation PT (9.4 - 12.5 SEC) 14.6 H INR (0.90 - 1.19) 1.34 H APTT (25 - 37 SEC) 27 Miscellaneous Phlebotomy Draw Site L THORACENTESIS Other Body Source Pleural pH (PH) 7.184 Last 24 Hours of Domenico Results: Blood cultures November 01 negative Sputum culture November 02 mixed vikki with light growth of yeast, with the gram stain revealing many white blood cells and few gram-positive rods Left pleural fluid culture November 02 negative, with the gram stain revealing many white blood cells and no organisms Assessment/Plan ID Impression: Stable, with temperatures remaining normal and white blood cell count decreasing , now on Unasyn and Azithromycin for a left lower lobe pneumonia, complicated by a probable empyema, status post removal of 200 cc of cloudy pleural fluid yesterday, with the fluid revealing a significant white blood cell count and a low pH, though the culture is so far negative. She has had no output from the pigtail catheter overnight and reimaging, with consideration of lytics or manipulation of the catheter, will need to be considered. As this is unlikely to be an atypical pneumonia the Azithromycin should be able to be discontinued. Suggestion: 1. Repeat CT of the chest 2. Further management of the pleural effusion and pigtail catheter, with consideration of Thoracic surgery evaluation, based on above 3. Follow-up pleural fluid culture 4. Discontinue Azithromycin 5. Continue Unasyn pending above
--- NOTE | 2017-11-03 13:20 | PN- Thoracic Surgery ---
Surgical Brief Attending Note Brief Attending Note: Catheter needs to be replaced by IR and then will plan lytics this weekend
--- NOTE | 2017-11-03 13:53 | CT SCAN REPORT ---
EXAMINATION: CT CHEST WITHOUT CONTRAST CLINICAL INFORMATION: Empyema. Loculated pleural effusion status post catheter placement. COMPARISON: Chest CT from 11/01/2017. TECHNIQUE: Multidetector volumetric CT imaging of the chest was done. Axial MIP volume rendering provided. Sagittal and coronal reformatted images were obtained. DLP: 574 mGy-cm FINDINGS: LUNGS AND PLEURA: Trachea and central airways are widely patent and normal in caliber. Small, 0.2 cm pleural-based nodule of the right middle lobe (image 312, series 4). Small, 0.2 cm noncalcified nodule within the posterior right lower lobe (image 277, series 4). Mild subsegmental atelectasis within the right lower lobe. Small left pleural effusion has not significantly changed in size compared to 11/01/2017. Again noted is a loculated component of the effusion extending along the major fissure. There is peripheral opacification from atelectasis (possible superimposed consolidation) in the left lower lobe and inferior lingula. The tip of the pleural drainage catheter is located within subcutaneous tissues overlying the latissimus dorsi muscle. MEDIASTINUM: Again noted is a small pericardial effusion. No acute findings in the mediastinum compared the prior exam. LYMPHATICS: No pathologic sized axillary, hilar or mediastinal lymph nodes. No internal mammary lymphadenopathy. UPPER ABDOMEN: Unremarkable. SKELETAL AND CHEST WALL: There are bone islands of each humeral head. No suspicious osseous lesions. [id number] multilevel degenerative arthropathy of the spine. IMPRESSION: The small left pleural effusion with loculated component along the major fissure has not significantly changed in size compared to 11/01/2017. The tip of the pleural drainage catheter is not within the pleural space; instead, it is positioned within deep subcutaneous tissues overlying the latissimus dorsi muscle.
[2017-11-03 14:17] VITALS: BP 173/96
[2017-11-03 22:08] VITALS: BP 130/82
[2017-11-04 07:00] VITALS: BP 138/86
[2017-11-04 08:19] LABS: ABSOLUTE BASOPHIL COUNT 0.1 /CUMM (0.0-0.2); ABSOLUTE EOSINOPHIL COUNT 0.9 /CUMM (0.0-0.7); ABSOLUTE GRANULOCYTE CT 7.1 /CUMM (1.4-6.5); ABSOLUTE LYMPH COUNT 1.3 /CUMM (1.2-3.4); ABSOLUTE MONOCYTE COUNT 1.5 /CUMM (0.10-0.60); BASOPHIL % 0.6 % (0.0-2.0); EOSINOPHIL % 7.9 % (0-5); GRANULOCYTE % 65.6 % (42.2-75.2); HEMATOCRIT 37.4 % (37-47); MEAN CORPUSCULAR HGB 29.5 PG (27.0-31.0); MEAN CORPUSCULAR HGB CONC 33.5 G/DL (33.0-37.0); MEAN CORPUSCULAR VOLUME 88.2 FL (81.0-99.0); MEAN PLATELET VOLUME 7.9 FL (7.4-10.4); PLATELET COUNT 502 /CUMM (130-400); RBC DISTRIBUTION WIDTH 13.5 % (11.5-14.5); RED BLOOD CELL CT 4.24 /CUMM (4.20-5.40); WHITE BLOOD CELL COUNT 10.8 /CUMM (4.8-10.8)
--- NOTE | 2017-11-04 11:47 | PN- Housestaff ---
Subjective Follow-up For: pneumonia empyema Subjective: Patient reports improvement in her cough, but her cough is productive now with clear/yellow color sputum. Denies any shortness of breath or blood in the sputum. Also reports some chest pain with cough. Review of Systems Constitutional: Reports: no symptoms. EENTM: Reports: no symptoms. Cardiovascular: Reports: no symptoms. Respiratory: Reports: cough, sputum production. Gastrointestinal: Reports: no symptoms. Genitourinary: Reports: no symptoms. Musculoskeletal: Reports: no symptoms. Skin: Reports: no symptoms. Neurological/Psychological: Reports: no symptoms. Hematologic/Endocrine: Reports: no symptoms. Immunologic/Allergic: Reports: no symptoms. Objective Last 24 Hrs of Vital Signs/I&O Vital Signs Date Time Temp Pulse Resp B/P B/P Pulse O2 O2 Flow FiO2 Mean Ox Delivery Rate 11/04 1511 98.4 85 20 170/98 95 Room Air 11/04 0923 94 Room Air 11/04 0908 90 152/84 11/04 0800 95 11/04 0700 98.1 81 18 138/86 93 11/03 2208 99.0 89 18 130/82 95 Room Air 11/03 1949 95 Room Air Room Air Intake & Output 11/04 1600 11/04 0800 11/04 0000 Intake Total 850 340 370 Output Total 600 150 550 Balance 250 190 -180 Intake, IV 130 220 10 Intake, Oral 720 120 360 Output, Urine 600 150 550 Physical Exam General Appearance: Alert, Oriented X3, Cooperative, No Acute Distress Skin: No Rashes, No Breakdown Cardiovascular: Regular Rate, Normal S1, Normal S2 Lungs: Clear to Auscultation, Normal Air Movement Abdomen: Normal Bowel Sounds, Soft, No Tenderness Extremities: No Clubbing, No Cyanosis, No Edema Current Medications: Current Medications Sig/Ana Rosa Start time Last Medication Dose Route Stop Time Status Admin Albuterol Sulfate 3 ML BID 11/02 2100 AC 11/04 INH 0920 Albuterol Sulfate 2 PUF Q4-6 PRN PRN 11/01 2214 AC 11/03 INH 205 Amlodipine Besylate 5 MG DAILY 11/02 0900 AC 11/04 PO 0908 Ampicillin Sodium/ 3,000 MG Q6 11/02 1800 AC 11/04 Sulbactam Sodium IV 1159 Sodium Chloride 100 ML Atorvastatin Calcium 10 MG 1700 11/02 1700 AC 11/03 PO 1729 Enoxaparin Sodium 40 MG DAILY 11/02 0900 AC 11/04 SC 0908 Gabapentin 100 MG DAILY 11/02 0900 AC 11/04 PO 0908 Gabapentin 300 MG QPM 11/01 2300 AC 11/03 PO 2038 Guaifenesin 600 MG Q12 11/01 2205 AC 11/04 PO 0908 Ibuprofen 600 MG .STK-MED ONE 11/03 2313 DC PO 11/03 2314 Ibuprofen 600 MG Q8P PRN 11/01 2215 AC 11/04 PO 1118 Levothyroxine Sodium 0.05 MG DAILY AC 11/02 0700 AC 11/04 PO 0628 Last 24 Hrs of Lab/Domenico Results Last 24 Hrs of Labs/Mics: Laboratory Tests 11/04/17 0745: CBC w Diff NO MAN DIFF REQ, RBC 4.24, MCV 88.2, MCH 29.5, MCHC 33.5, RDW 13.5, MPV 7.9, Gran % 65.6, Lymphocytes % 12.0 L, Monocytes % 13.9 H, Eosinophils % 7.9 H, Basophils % 0.6, Absolute Granulocytes 7.1 H, Absolute Lymphocytes 1.3, Absolute Monocytes 1.5 H, Absolute Eosinophils 0.9, Absolute Basophils 0.1 Assessment/Plan Assessment: 52 year old female with PMH of MS on solumedrol, Ampyra, and rituximab, hypothyroidism, HTN, HLD, recurrent pneumonia, most recently 07/2017 treated as outpatient presented with complaints of severe cough, dyspnea, and pleuritic chest pain. Pneumonia and parapneumonic effusion, empyema: Chest CTA-moderate left pleural effusion tracking along the major fissure along with an additional component along the posterior upper left hemithorax which appears loculated. Remains afebrile with resolution of leukocytosis improving on Unasyn s/p diagnostic and therapeutic thoracentesis with 200cc removed, catheter output 20cc 82,000 WBC, pH <7.2 high LDH, gram stain showed WBCs and culture negative so far Catheter disloged. Case discussed with IR and CT surgery, remaining collection after thoracentesis on 11/02 is too small for catheter to be replaced safely. Tentative plan is to monitor the patient over the weekend on antibiotics. Will do CXR today and tomorrow to ensure any reaacumulation of fluid or pus. If the pleural fluid reaccumulates, will consider chest tube or drainage catheter at that time Pulmonology and infectious disease consulted, appreciate recommendations TRC evaluation, continue mucinex and nebulized albuterol Cardiothoracic surgery consulted; appreciate recommendations HTN: Continue norvasc HLD: Continue atorvastatin Hypothyroidism: Continue synthroid MS: Continue ampyra 10mg po bid Heart healthy diet DVT [id number] Full code Problem List: 1. Pneumonia Pain Ratin Pain Location: Chest Pain Goal: Remain pain free Pain Plan: Pain pathway Tomorrow's Labs & Rationales: CBC(pneumonia, empyema)
--- NOTE | 2017-11-04 12:02 | PN- Pulmonary ---
Subjective HPI/Critical Care Issues: pt seen and examined able to ambulate with assistance leukocytosis resolved - 10.8 catheter was disloged, however not enough fluid was present to re-insert doing well today no dyspnea, on room air Objective Current Medications: Current Medications Sig/Ana Rosa Start time Last Medication Dose Route Stop Time Status Admin Albuterol Sulfate 3 ML BID 11/02 2100 AC 11/04 INH 0920 Albuterol Sulfate 2 PUF Q4-6 PRN PRN 11/01 2215 AC 11/03 INH 2050 Amlodipine Besylate 5 MG DAILY 11/02 0900 AC 11/04 PO 0908 Ampicillin Sodium/ 3,000 MG Q6 11/02 1800 AC 11/04 Sulbactam Sodium IV 0629 Sodium Chloride 100 ML Atorvastatin Calcium 10 MG 1700 11/02 1700 AC 11/03 PO 1729 Enoxaparin Sodium 40 MG DAILY 11/02 0900 AC 11/04 SC 0908 Gabapentin 100 MG DAILY 11/02 0900 AC 11/04 PO 0908 Gabapentin 300 MG QPM 11/01 2300 AC 11/03 PO 2038 Guaifenesin 600 MG Q12 11/01 2205 AC 11/04 PO 0908 Ibuprofen 600 MG .STK-MED ONE 11/03 2313 DC PO 11/03 2314 Ibuprofen 600 MG Q8P PRN 11/01 2215 AC 11/04 PO 1118 Levothyroxine Sodium 0.05 MG DAILY AC 11/02 0700 AC 11/04 PO 0628 Patient Medication 1 ED ONE ONE 11/03 1430 DC 11/03 Teaching ED 11/03 1431 1728 Vital Signs & I&O Last 24 Hrs of Vitals and I&O: Vital Signs Date Time Temp Pulse Resp B/P B/P Pulse O2 O2 Flow FiO2 Mean Ox Delivery Rate 11/04 09 94 Room Air 11/04 0908 90 152/84 11/04 0700 98.1 81 18 138/86 93 11/03 2208 99.0 89 18 130/82 95 Room Air 11/03 1949 95 Room Air Room Air 11/03 1417 97.8 100 18 173/96 95 Room Air Intake & Output 11/04 1600 11/04 0800 11/04 0000 Intake Total 340 370 Output Total 150 550 Balance 190 -180 Intake, IV 220 10 Intake, Oral 120 360 Output, Urine 150 550 Exam Other Physical Findings: gen-aaox3 head/neck-room air cvs-s1,s2 lungs-rare rhonchi bibasilar abd-soft,bs+ ext-without edema Results Last 24 Hrs of Lab Results: Laboratory Tests 11/04/17 0745: CBC w Diff NO MAN DIFF REQ, RBC 4.24, MCV 88.2, MCH 29.5, MCHC 33.5, RDW 13.5, MPV 7.9, Gran % 65.6, Lymphocytes % 12.0 L, Monocytes % 13.9 H, Eosinophils % 7.9 H, Basophils % 0.6, Absolute Granulocytes 7.1 H, Absolute Lymphocytes 1.3, Absolute Monocytes 1.5 H, Absolute Eosinophils 0.9, Absolute Basophils 0.1 Impression/Plan Impression/Plan Impression/Plan: Impression 52 year old woman * LLL pna complicated by empyema based on pleural chemistry * MS Plan -leukocytosis resolved - 10.8 -catheter was disloged, however not enough fluid was present to re-insert -check CXR - PA/Lateral today and tomorrow to monitor for any rapid re- accumulation of fluid -will re-evaluate based on imaging further management and timing to re-image with CT -f/u hr business partner consultant recommendations -continue Unasyn, f/u cultures DVT prophylaxis at all times
[2017-11-04 15:11] VITALS: BP 170/98
--- NOTE | 2017-11-04 15:26 | RADIOLOGY REPORT ---
EXAMINATION: XR CHEST CLINICAL INFORMATION: Cough. Shortness of breath. COMPARISON: Previous chest x-rays most recent 11/02/[address] 11/03/2017 TECHNIQUE: 2 views of the chest were obtained. FINDINGS: The cardiac and mediastinal contours are stable. There is airspace disease in the left lower lobe. There is a partially loculated left pleural effusion. This does not appear appreciably changed from recent exams. The right lung is clear. There is no right pleural effusion. There is no pneumothorax. There are degenerative changes of the spine. IMPRESSION: No appreciable change in left lower lobe airspace disease and partially loculated left pleural effusion from recent exams
[2017-11-04 15:28] VITALS: BP 152/82
--- NOTE | 2017-11-04 15:31 | PN- Att Addend ---
Attending Addendum Attending Brief Note Patient looking and feeling better able to take deep breath. The chest tube dislodged, but there was not enough fluid to reinserted. Appreciate pulmonary's input and recommendations. The lab called yesterday evening stating that 1 of the blood cultures might be growing Haemophilus influenza Vital signs are stable no fever. No major changes on physical. She just returned from a chest x-ray. Her white count is coming down to 10,800. We will continue recommendations from pulmonary. Patient to get out of bed Intake & Output 11/04 0400 11/03 1600 11/03 0400 11/02 1600 11/02 0400 Intake Total 5535 229 7090 039 616 4119 Output Total 750 550 20 208 800 Balance 440 -180 1740 988 427 3415 Intake, IV 350 10 973 25 7612 Intake, Oral 107 510 3054 480 960 Number 1 Bowel Movements Output, Chest 20 8 Tube Drainage Output, Other 200 Output, Urine 750 550 800 Patient 235 lb 235 lb Weight Weight Bed scale Measurement Method Laboratory Tests 11/04/17 0745: CBC w Diff NO MAN DIFF REQ, RBC 4.24, MCV 88.2, MCH 29.5, MCHC 33.5, RDW 13.5, MPV 7.9, Gran % 65.6, Lymphocytes % 12.0 L, Monocytes % 13.9 H, Eosinophils % 7.9 H, Basophils % 0.6, Absolute Granulocytes 7.1 H, Absolute Lymphocytes 1.3, Absolute Monocytes 1.5 H, Absolute Eosinophils 0.9, Absolute Basophils 0.1 11/03/17 0719: Anion Gap 11, Estimated GFR > 60, BUN/Creatinine Ratio 26.7 H, Total Bilirubin 0.5, Direct Bilirubin 0.2, AST 100 H, ALT 120 H, Alkaline Phosphatase 113, Lactate Dehydrogenase 984 H, Total Protein 5.8 L, Albumin 3.1 L, CBC w Diff NO MAN DIFF REQ, RBC 4.46, MCV 88.4, MCH 29.0, MCHC 32.8 L, RDW 13.5, MPV 7.2 L, Gran % 77.3 H, Lymphocytes % 10.2 L, Monocytes % 11.0 H, Eosinophils % 1.2 , Basophils % 0.3, Absolute Granulocytes 12.1 H, Absolute Lymphocytes 1.6, Absolute Monocytes 1.7 H, Absolute Eosinophils 0.2, Absolute Basophils 0.1 11/02/17 1630: Fluid WBC 90897 H, Fld Total RBCs Counted 53367 H 11/02/17 1630: Lymphocytes 4, % Normal PMNs 86, Misc Hematology Test , Fluid Glucose 103, Fluid Total Protein 4.2, Fluid Albumin 2.3, Fluid LDH 4427, Fluid Amylase < 30 11/02/17 1628: Phlebotomy Draw Site L THORACENTESIS, Pleural pH 7.184 11/02/17 1425: PT 14.6 H, INR 1.34 H, APTT 27 11/02/17 0939: RBC 4.26, MCV 88.1, MCH 29.2, MCHC 33.1, RDW 13.2, MPV 7.6, Gran % 93.5 H, Lymphocytes % 2.7 L, Monocytes % 3.8, Eosinophils % 0, Basophils % 0, Absolute Granulocytes 19.9 H, Absolute Lymphocytes 0.6 L, Absolute Monocytes 0.8 H, Absolute Eosinophils 0, Absolute Basophils 0 11/02/17 0711: Anion Gap 13, Estimated GFR > 60, BUN/Creatinine Ratio 23.3, Total Bilirubin 0.4 , Direct Bilirubin 0.2, AST 25, ALT 57 H, Alkaline Phosphatase 104, Total Protein 5.8 L, Albumin 3.2 L 11/02/17 0044: Troponin I < 0.01 11/02/17 0044: Lactic Acid 1.8 11/01/17 1840: Anion Gap 12, Estimated GFR > 60, BUN/Creatinine Ratio 16.7, Glucose 136 H, Lactic Acid 1.3, Calcium 9.7, Total Bilirubin 0.9, AST 38 H, ALT 58 H, Alkaline Phosphatase 100, Troponin I < 0.01, Zxo-L-Psmrdukslxx Pept 33.7, Total Protein 6.5, Albumin 3.7, Globulin 2.8, Albumin/Globulin Ratio 1.3, Lipase 106, D-Dimer High Sensitivty 628 H, CBC w Diff NO MAN DIFF REQ, RBC 4.59, MCV 88.9, MCH 29.0, MCHC 32.6 L, RDW 13.5, MPV 7.0 L, Gran % 87.5 H, Lymphocytes % 3.2 L, Monocytes % 9.2, Eosinophils % 0.1, Basophils % 0, Absolute Granulocytes 22.9 H, Absolute Lymphocytes 0.8 L, Absolute Monocytes 2.4 H, Absolute Eosinophils 0, Absolute Basophils 0 Microbiology 11/02 1630 BODY FLUID: Body Fluid Culture - RES 11/02 163 BODY FLUID: Gram Stain - RES 11/02 633 LOWER RESP: Respiratory Culture - COMP YEAST 11/02 633 LOWER RESP: Gram Stain - COMP 11/02 1931 BLOOD: Blood Culture - RES 11/01 1921 BLOOD: Blood Culture - COMP HAEMOPHILUS INFLUENZAE Microbiology 11/02 163 BODY FLUID: Body Fluid Culture - RES 11/02 163 BODY FLUID: Gram Stain - RES 11/02 633 LOWER RESP: Respiratory Culture - COMP YEAST 11/02 633 LOWER RESP: Gram Stain - COMP 11/02 1931 BLOOD: Blood Culture - RES 11/01 1921 BLOOD: Blood Culture - COMP HAEMOPHILUS INFLUENZAE Vital Signs Date Time Temp Pulse Resp B/P B/P Pulse O2 O2 Flow FiO2 Mean Ox Delivery Rate 11/04 1528 84 152/82 11/04 1511 98.4 85 20 170/98 95 Room Air 11/04 0923 94 Room Air 11/04 0908 90 152/84 11/04 0800 95 11/04 0700 98.1 81 18 138/86 93 11/03 2208 99.0 89 18 130/82 95 Room Air 11/03 1949 95 Room Air Room Air
[2017-11-04 21:34] VITALS: BP 160/100
[2017-11-04 21:38] VITALS: BP 160/80
[2017-11-05 07:12] VITALS: BP 168/84
--- NOTE | 2017-11-05 08:48 | PN- Housestaff ---
Subjective Follow-up For: pna, empyema Subjective: patient is walking with improved dyspnea, cough with clear sputum, on room air afebrile on antibiotics Review of Systems Constitutional: Reports: see HPI. Objective Last 24 Hrs of Vital Signs/I&O Vital Signs Date Time Temp Pulse Resp B/P B/P Pulse O2 O2 Flow FiO2 Mean Ox Delivery Rate 11/05 0840 94 Room Air 11/05 0839 81 158/72 11/05 0800 Room Air 11/05 0712 97.9 91 18 168/84 93 11/05 0000 98 Room Air 11/04 2138 160/80 11/04 2134 98.3 93 20 160/100 98 11/04 1925 Room Air 11/04 1528 84 152/82 11/04 1511 98.4 85 20 170/98 95 Room Air Intake & Output 11/05 1600 11/05 0800 11/05 0000 Intake Total 480 480 Output Total 800 500 Balance -320 -20 Intake, Oral 480 480 Output, Urine 800 500 Physical Exam General Appearance: Alert, Oriented X3, Cooperative, No Acute Distress Cardiovascular: Regular Rate, Normal S1, Normal S2, No Murmurs Lungs: diminished breath sounds left base Abdomen: Normal Bowel Sounds, Soft, No Tenderness, No Masses Extremities: No Clubbing, No Cyanosis, No Edema, Normal Pulses Current Medications: Current Medications Sig/Ana Rosa Start time Last Medication Dose Route Stop Time Status Admin Albuterol Sulfate 3 ML BID 11/02 2100 AC 11/05 INH 0840 Albuterol Sulfate 2 PUF Q4-6 PRN PRN 11/01 2215 AC 11/04 INH 1948 Amlodipine Besylate 5 MG DAILY 11/02 09 AC 11/05 PO 0839 Ampicillin Sodium/ 3,000 MG Q6 11/02 1800 AC 11/05 Sulbactam Sodium IV 0522 Sodium Chloride 100 ML Atorvastatin Calcium 10 MG 1700 11/02 1700 AC 11/04 PO 1659 Calcium Carbonate 500 MG DAILY PRN 11/04 1830 AC 11/04 PO 191 Enoxaparin Sodium 40 MG DAILY 11/02 09 AC 11/05 SC 0839 Gabapentin 100 MG DAILY 11/02 09 AC 11/05 PO 0836 Gabapentin 300 MG QPM 11/01 2300 AC 11/04 PO 1948 Guaifenesin 600 MG Q12 11/01 2205 AC 11/05 PO 0836 Ibuprofen 600 MG .STK-MED ONE 11/04 1910 DC PO 11/04 1911 Ibuprofen 600 MG .STK-MED ONE 11/04 1113 DC PO 11/04 1114 Ibuprofen 600 MG Q8P PRN 11/01 2215 AC 11/05 PO 0413 Levothyroxine Sodium 0.05 MG DAILY AC 11/02 0700 AC 11/05 PO 0523 Sodium Chloride 2 SPRAY Q4P PRN 11/04 2115 AC 11/04 DANDY 2319 Last 24 Hrs of Lab/Domenico Results Last 24 Hrs of Labs/Mics: Laboratory Tests 11/05/17 0820: CBC w Diff NO MAN DIFF REQ, RBC 4.14 L, MCV 87.3, MCH 29.5, MCHC 33.8, RDW 13.5 , MPV 6.9 L, Gran % 68.8, Lymphocytes % 10.7 L, Monocytes % 13.5 H, Eosinophils % 6.8 H, Basophils % 0.2, Absolute Granulocytes 7.8 H, Absolute Lymphocytes 1.2, Absolute Monocytes 1.5 H, Absolute Eosinophils 0.8, Absolute Basophils 0 Assessment/Plan Assessment: 52 year old female with PMH of MS on solumedrol, Ampyra, and rituximab, hypothyroidism, HTN, HLD, recurrent pneumonia, most recently 07/2017 treated as outpatient presented with complaints of severe cough, dyspnea, and pleuritic chest pain. Pneumonia and parapneumonic effusion, empyema: Chest CTA-moderate left pleural effusion tracking along the major fissure along with an additional component along the posterior upper left hemithorax which appears loculated. Afebrile on presentation, leukocytosis improved on Unasyn s/p diagnostic and therapeutic thoracentesis with 200cc removed, catheter output 20cc 82,000 WBC, pH <7.2 high LDH, gram stain showed WBCs and culture negative so far Pulmonology and infectious disease consulted, appreciate recommendations TRC evaluation, continue mucinex and nebulized albuterol Repeat CT scan today shows catheter is out of position, now in the skin, will be removed Cardiothoracic surgery consulted today Case discussed with IR and CT surgery Collection too small for catheter to be replaced safely Repeat imaging Monday Consider chest tube or drainage catheter with lytic therapy for loculated empyema tmrw HTN: Continue norvasc HLD: Continue atorvastatin Hypothyroidism: Continue synthroid MS: Continue ampyra 10mg po bid Heart healthy diet DVT ppx-lovenox Full code Problem List: 1. Pneumonia 2. Pleural effusion 3. Empyema Pain Ratin Pain Location: n/a Pain Goal: Pain 4 or less Pain Plan: prn Tomorrow's Labs & Rationales: cbc
--- NOTE | 2017-11-05 09:16 | PN- Infect Dx ---
Subjective Subjective: Afebrile. She feels well with no further cough or complaints of shortness of breath. She notes occasional discomfort in the left chest. Objective Last 24 Hrs of Vital Signs/I&O Vital Signs Date Time Temp Pulse Resp B/P B/P Pulse O2 O2 Flow FiO2 Mean Ox Delivery Rate 11/05 0840 94 Room Air 11/05 0839 81 158/72 11/05 0800 Room Air 11/05 0712 97.9 91 18 168/84 93 11/05 0000 98 Room Air 11/04 2138 160/80 11/04 2134 98.3 93 20 160/100 98 11/04 1925 Room Air 11/04 1528 84 152/82 11/04 1511 98.4 85 20 170/98 95 Room Air 11/04 0923 94 Room Air Intake & Output 11/05 1600 11/05 0800 11/05 0000 Intake Total 480 480 Output Total 800 500 Balance -320 -20 Intake, Oral 480 480 Output, Urine 800 500 Physical Exam Other Physical Findings: She appears comfortable in no acute distress Lungs decreased breath sounds at the left base Heart regular rhythm with no murmur Extremities no cyanosis, clubbing or edema Results Last 24 Hours of Lab Results: Laboratory Tests 11/06 819 Hematology CBC w Diff Pending WBC Pending RBC Pending Hgb Pending Hct Pending MCV Pending MCH Pending MCHC Pending RDW Pending Plt Count Pending MPV Pending Last 24 Hours of Domenico Results: Blood cultures November 01 1 bottle positive for Haemophilus influenza, beta- lactamase negative Sputum culture November 02 mixed vikki with a light growth of yeast Left pleural fluid culture November 02 negative Recent Imaging Studies: Chest x-ray November 04 no change in the left lower lobe airspace disease and partially loculated left pleural effusion CT of the chest November 03 small left pleural effusion with loculated component unchanged; the tip of the catheter is not within the pleural space but within the deep subcutaneous tissues Assessment/Plan ID Impression: Overall improved, with temperatures and white blood cell count normal, on Unasyn for a left lower lobe pneumonia/empyema secondary to Haemophilus influenza, which was isolated from one blood culture, status post removal of 200 cc of cloudy pleural fluid 3 days ago, with the pigtail catheter, that was placed at the time of the thoracentesis, dislodged and now removed. The CT of the chest was reviewed with IR, who felt that there was not sufficient fluid left to safely tap, but she will require a repeat CT of the chest and, based on these results, she may need replacement of the catheter. Suggestion: 1. Repeat CT of the chest in the a.m. 2. Continue Unasyn
[2017-11-05 09:37] LABS: ABSOLUTE BASOPHIL COUNT 0 /CUMM (0.0-0.2); ABSOLUTE EOSINOPHIL COUNT 0.8 /CUMM (0.0-0.7); ABSOLUTE GRANULOCYTE CT 7.8 /CUMM (1.4-6.5); ABSOLUTE LYMPH COUNT 1.2 /CUMM (1.2-3.4); ABSOLUTE MONOCYTE COUNT 1.5 /CUMM (0.10-0.60); BASOPHIL % 0.2 % (0.0-2.0); EOSINOPHIL % 6.8 % (0-5); GRANULOCYTE % 68.8 % (42.2-75.2); HEMATOCRIT 36.1 % (37-47); MEAN CORPUSCULAR HGB 29.5 PG (27.0-31.0); MEAN CORPUSCULAR HGB CONC 33.8 G/DL (33.0-37.0); MEAN CORPUSCULAR VOLUME 87.3 FL (81.0-99.0); MEAN PLATELET VOLUME 6.9 FL (7.4-10.4); PLATELET COUNT 530 /CUMM (130-400); RBC DISTRIBUTION WIDTH 13.5 % (11.5-14.5); RED BLOOD CELL CT 4.14 /CUMM (4.20-5.40); WHITE BLOOD CELL COUNT 11.4 /CUMM (4.8-10.8)
--- NOTE | 2017-11-05 11:27 | PN- Pulmonary ---
Subjective HPI/Critical Care Issues: pt seen and examined feels well cxr witout reaccumultaion of fluid Objective Current Medications: Current Medications Sig/Ana Rosa Start time Last Medication Dose Route Stop Time Status Admin Albuterol Sulfate 3 ML BID 11/02 2100 AC 11/05 INH 0840 Albuterol Sulfate 2 PUF Q4-6 PRN PRN 11/01 2215 AC 11/04 INH 1948 Amlodipine Besylate 5 MG DAILY 11/02 09 AC 11/05 PO 0839 Ampicillin Sodium/ 3,000 MG Q6 11/02 1800 AC 11/05 Sulbactam Sodium IV 1103 Sodium Chloride 100 ML Atorvastatin Calcium 10 MG 1700 11/02 1700 AC 11/04 PO 1659 Calcium Carbonate 500 MG DAILY PRN 11/04 1830 AC 11/04 PO 1911 Enoxaparin Sodium 40 MG DAILY 11/02 0900 AC 11/05 SC 0839 Gabapentin 100 MG DAILY 11/02 0900 AC 11/05 PO 0836 Gabapentin 300 MG QPM 11/01 2300 AC 11/04 PO 1948 Guaifenesin 600 MG Q12 11/01 2205 AC 11/05 PO 0836 Ibuprofen 600 MG .STK-MED ONE 11/04 1910 DC PO 11/04 1911 Ibuprofen 600 MG Q8P PRN 11/01 2215 AC 11/05 PO 1110 Levothyroxine Sodium 0.05 MG DAILY AC 11/02 0700 AC 11/05 PO 0523 Sodium Chloride 2 SPRAY Q4P PRN 11/04 2115 AC 11/04 DANDY 2319 Vital Signs & I&O Last 24 Hrs of Vitals and I&O: Vital Signs Date Time Temp Pulse Resp B/P B/P Pulse O2 O2 Flow FiO2 Mean Ox Delivery Rate 11/05 0840 94 Room Air 11/05 0839 81 158/72 11/05 0800 Room Air 11/05 0712 97.9 91 18 168/84 93 11/05 0000 98 Room Air 11/04 2138 160/80 11/04 2134 98.3 93 20 160/100 98 11/04 1925 Room Air 11/04 1528 84 152/82 11/04 1511 98.4 85 20 170/98 95 Room Air Intake & Output 11/05 1600 11/05 0800 11/05 0000 Intake Total 480 480 Output Total 800 500 Balance -320 -20 Intake, Oral 480 480 Output, Urine 800 500 Exam Other Physical Findings: gen-aaox3 head/neck-room air cvs-s1,s2 lungs-rare rhonchi bibasilar abd-soft,bs+ ext-without edema Results Last 24 Hrs of Lab Results: Laboratory Tests 11/05/17 0820: CBC w Diff NO MAN DIFF REQ, RBC 4.14 L, MCV 87.3, MCH 29.5, MCHC 33.8, RDW 13.5 , MPV 6.9 L, Gran % 68.8, Lymphocytes % 10.7 L, Monocytes % 13.5 H, Eosinophils % 6.8 H, Basophils % 0.2, Absolute Granulocytes 7.8 H, Absolute Lymphocytes 1.2, Absolute Monocytes 1.5 H, Absolute Eosinophils 0.8, Absolute Basophils 0 Impression/Plan Impression/Plan Impression/Plan: Impression 52 year old woman * LLL pna complicated by empyema based on pleural chemistry * MS Plan -catheter was disloged, however not enough fluid was present to re-insert -no evidene of reaccumulation based on CXR -f/u CT chest that has been ordered -continue Unasyn, f/u cultures, ID recommendations DVT prophylaxis at all times
--- NOTE | 2017-11-05 13:44 | RADIOLOGY REPORT ---
EXAMINATION: XR CHEST CLINICAL INFORMATION: Cough COMPARISON: Previous chest x-rays most recent from yesterday and chest CT 11/03/2017 TECHNIQUE: 2 views of the chest were obtained. FINDINGS: The cardiac and mediastinal contours are stable. There is increasing pleural and parenchymal disease at the left lung base. The right lung is clear. There is no right pleural effusion. There is no pneumothorax. A left chest tube is not appreciated. There are degenerative changes of the spine. IMPRESSION: Increasing pleural-parenchymal disease at the left lung base.
[2017-11-05 14:53] VITALS: BP 189/104
--- NOTE | 2017-11-05 16:38 | PN- Att Addend ---
Attending Addendum Attending Brief Note Feeling better every day, no shortness of breath, no fever BP a little elevated today the blood pressure, will monitor No new changes on physical. Had a chest x-ray with no major changes, will have another CT tomorrow. The culture of the fluid was negative white count today 11 ,400. We will continue treatment as per consultants. Intake & Output 11/05 1600 11/05 0400 11/04 1600 11/04 0400 11/03 1600 11/03 0400 Intake Total 7637 760 8391 370 1760 480 Output Total 800 500 750 550 20 208 Balance 1000 -20 440 -180 1740 272 Intake, IV 120 350 10 660 Intake, Oral 1680 480 228 819 3394 480 Number 1 1 Bowel Movements Output, Chest 20 8 Tube Drainage Output, Other 200 Output, Urine 800 500 750 550 Current Medications Sig/Ana Rosa Start time Last Medication Dose Route Stop Time Status Admin Albuterol Sulfate 3 ML BID 11/02 2100 AC 11/05 INH 0840 Albuterol Sulfate 2 PUF Q4-6 PRN PRN 11/01 221 AC 11/04 INH 1948 Amlodipine Besylate 5 MG DAILY 11/02 09 AC 11/05 PO 0839 Ampicillin Sodium/ 3,000 MG Q6 11/02 1800 AC 11/05 Sulbactam Sodium IV 1103 Sodium Chloride 100 ML Atorvastatin Calcium 10 MG 1700 11/02 1700 AC 11/04 PO 1659 Calcium Carbonate 500 MG DAILY PRN 11/04 1830 AC 11/04 PO 1911 Enoxaparin Sodium 40 MG DAILY 11/02 09 AC 11/05 SC 0839 Gabapentin 100 MG DAILY 11/02 09 AC 11/05 PO 0836 Gabapentin 300 MG QPM 11/01 2300 AC 11/04 PO 1948 Guaifenesin 600 MG Q12 11/01 2205 AC 11/05 PO 0836 Ibuprofen 600 MG .STK-MED ONE 11/05 041 DC PO 11/05 0412 Ibuprofen 600 MG .STK-MED ONE 11/04 1909 DC PO 11/04 191 Ibuprofen 600 MG Q8P PRN 11/01 2215 AC 11/05 PO 1110 Levothyroxine Sodium 0.05 MG DAILY AC 11/02 0700 AC 11/05 PO 0523 Loperamide HCl 2 MG ONE ONE 11/05 1430 DC PO 11/05 1431 Sodium Chloride 2 SPRAY Q4P PRN 11/04 2115 AC 11/04 DANDY 2319 Laboratory Tests 11/05/17 0820: CBC w Diff NO MAN DIFF REQ, RBC 4.14 L, MCV 87.3, MCH 29.5, MCHC 33.8, RDW 13.5 , MPV 6.9 L, Gran % 68.8, Lymphocytes % 10.7 L, Monocytes % 13.5 H, Eosinophils % 6.8 H, Basophils % 0.2, Absolute Granulocytes 7.8 H, Absolute Lymphocytes 1.2, Absolute Monocytes 1.5 H, Absolute Eosinophils 0.8, Absolute Basophils 0 11/04/17 0745: CBC w Diff NO MAN DIFF REQ, RBC 4.24, MCV 88.2, MCH 29.5, MCHC 33.5, RDW 13.5, MPV 7.9, Gran % 65.6, Lymphocytes % 12.0 L, Monocytes % 13.9 H, Eosinophils % 7.9 H, Basophils % 0.6, Absolute Granulocytes 7.1 H, Absolute Lymphocytes 1.3, Absolute Monocytes 1.5 H, Absolute Eosinophils 0.9, Absolute Basophils 0.1 11/03/17 0719: Anion Gap 11, Estimated GFR > 60, BUN/Creatinine Ratio 26.7 H, Total Bilirubin 0.5, Direct Bilirubin 0.2, AST 100 H, ALT 120 H, Alkaline Phosphatase 113, Lactate Dehydrogenase 984 H, Total Protein 5.8 L, Albumin 3.1 L, CBC w Diff NO MAN DIFF REQ, RBC 4.46, MCV 88.4, MCH 29.0, MCHC 32.8 L, RDW 13.5, MPV 7.2 L, Gran % 77.3 H, Lymphocytes % 10.2 L, Monocytes % 11.0 H, Eosinophils % 1.2 , Basophils % 0.3, Absolute Granulocytes 12.1 H, Absolute Lymphocytes 1.6, Absolute Monocytes 1.7 H, Absolute Eosinophils 0.2, Absolute Basophils 0.1 Microbiology 11/05 1416 STOOL: Clostridium difficile Toxin A & B - COLB Microbiology 11/05 1416 STOOL: Clostridium difficile Toxin A & B - COLB Vital Signs Date Time Temp Pulse Resp B/P B/P Pulse O2 O2 Flow FiO2 Mean Ox Delivery Rate 11/05 1453 98.4 90 18 189/104 95 Room Air 11/05 0840 94 Room Air 11/05 0839 81 158/72 11/05 0800 Room Air 11/05 0712 97.9 91 18 168/84 93 11/05 0000 98 Room Air 11/04 2138 160/80 11/04 2134 98.3 93 20 160/100 98 11/04 1925 Room Air
[2017-11-05 21:27] VITALS: BP 140/80; BP 140/92
[2017-11-06 06:41] VITALS: BP 167/81
--- NOTE | 2017-11-06 07:24 | PN- Housestaff ---
See Addendum Subjective Follow-up For: pneumonia and empyema Subjective: patient thinks she may have had an allergic reaction to chocolate and almonds last night and experience choking, coughing, and chest muscle spasms, she was given a valium and feels well this morning remains on room air afebrile overnight Review of Systems Constitutional: Reports: see HPI. Objective Last 24 Hrs of Vital Signs/I&O Vital Signs Date Time Temp Pulse Resp B/P B/P Pulse O2 O2 Flow FiO2 Mean Ox Delivery Rate 11/06 0800 Room Air 11/06 0641 99.2 89 20 167/81 92 11/06 0000 Room Air 11/05 2136 96 Room Air Room Air 11/05 2126 99.5 105 18 140/92 93 11/05 1600 Room Air 11/05 1453 98.4 90 18 189/104 95 Room Air Intake & Output 11/06 1600 11/06 0800 11/06 0000 Intake Total 1300 900 Output Total 1000 Balance 300 900 Intake, IV 100 Intake, Oral 1200 900 Number 1 Bowel Movements Output, Urine 1000 Physical Exam General Appearance: Alert, Oriented X3, Cooperative, No Acute Distress Cardiovascular: Regular Rate, Normal S1, Normal S2, No Murmurs Lungs: diminished over the left base Abdomen: Normal Bowel Sounds, Soft, No Tenderness, No Masses Extremities: No Clubbing, No Cyanosis, No Edema, Normal Pulses Current Medications: Current Medications Sig/Ana Rosa Start time Last Medication Dose Route Stop Time Status Admin Albuterol Sulfate 3 ML BID 11/02 2100 AC 11/05 INH 2134 Albuterol Sulfate 2 PUF Q4-6 PRN PRN 11/01 2215 AC 11/06 INH 0054 Amlodipine Besylate 5 MG DAILY 11/02 0900 AC 11/06 PO 0810 Ampicillin Sodium/ 3,000 MG Q6 11/02 1800 AC 11/06 Sulbactam Sodium IV 0522 Sodium Chloride 100 ML Atorvastatin Calcium 10 MG 1700 11/02 1700 AC 11/05 PO 1728 Benzocaine/Menthol 1 AARTI Q2P PRN 11/05 2115 AC 11/06 PO 0811 Calcium Carbonate 500 MG DAILY PRN 11/04 1830 AC 11/05 PO 1728 Diazepam 2 MG ONCE ONE 11/05 2199 DC 11/05 PO 11/05 2200 220 Enoxaparin Sodium 40 MG DAILY 11/02 0900 AC 11/06 SC 0809 Gabapentin 100 MG DAILY 11/02 0900 AC 11/06 PO 0810 Gabapentin 300 MG QPM 11/01 2300 AC 11/05 PO 2043 Guaifenesin 600 MG Q12 11/01 2205 AC 11/06 PO 0810 Ibuprofen 600 MG .STK-MED ONE 11/05 1812 DC PO 11/05 1813 Ibuprofen 600 MG Q8P PRN 11/01 2215 AC 11/06 PO 0810 Levothyroxine Sodium 0.05 MG DAILY AC 11/02 0700 AC 11/06 PO 0523 Loperamide HCl 2 MG ONE ONE 11/05 1430 DC PO 11/05 1431 Oxycodone HCl 5 MG ONCE ONE 11/05 1845 DC 11/05 PO 11/05 1846 1938 Patient Medication 1 ED ONE ONE 11/06 0930 DC Teaching ED 11/06 0931 Sodium Chloride 2 SPRAY Q4P PRN 11/04 2115 AC 11/04 DANDY 2319 Last 24 Hrs of Lab/Domenico Results Last 24 Hrs of Labs/Mics: Laboratory Tests 11/06/17 0730: Anion Gap 12, Estimated GFR > 60, BUN/Creatinine Ratio 12.0, Magnesium 1.9, Total Bilirubin 0.7, Direct Bilirubin 0.2, AST 23, ALT 87 H, Alkaline Phosphatase 100, Total Protein 5.2 L, Albumin 2.8 L, CBC w Diff NO MAN DIFF REQ, RBC 4.08 L, MCV 87.7, MCH 29.1, MCHC 33.2, RDW 13.1, MPV 7.2 L, Gran % 73.1, Lymphocytes % 9.2 L, Monocytes % 13.9 H, Eosinophils % 3.3, Basophils % 0.5, Absolute Granulocytes 12.0 H, Absolute Lymphocytes 1.5, Absolute Monocytes 2.3 H, Absolute Eosinophils 0.5, Absolute Basophils 0.1 Microbiology 11/05 1416 STOOL: Clostridium difficile Toxin A & B - COLB Assessment/Plan Assessment: 52 year old female with PMH of MS on solumedrol, Ampyra, and rituximab, hypothyroidism, HTN, HLD, recurrent pneumonia, most recently 07/2017 treated as outpatient presented with complaints of severe cough, dyspnea, and pleuritic chest pain. Pneumonia and parapneumonic effusion, empyema: Chest CTA-moderate left pleural effusion tracking along the major fissure along with an additional component along the posterior upper left hemithorax which appears loculated. s/p diagnostic and therapeutic thoracentesis but unfortunately catheter became displaced 82,000 WBC, pH <7.2 high LDH, gram stain showed WBCs and culture negative Afebrile, leukocytosis increased today, continue Unasyn Blood cultures positive for Hemophilus influenza, pleural fluid culture negative TRC evaluation, continue mucinex and nebulized albuterol Repeat CT scan today shows catheter is out of position, now in the skin, will be removed Cardiothoracic surgery, pulmonology, and ID consulted Repeat chest CT today, replacement of drainage catheter if infected pleural fluid remains HTN: Continue norvasc HLD: Continue atorvastatin Hypothyroidism: Continue synthroid MS: Continue ampyra 10mg po bid Heart healthy diet DVT [id number] Full code Problem List: 1. Empyema 2. Pleural effusion 3. Pneumonia Pain Ratin Pain Location: n/a Pain Goal: Pain 4 or less Pain Plan: prn Tomorrow's Labs & Rationales: cbc
--- NOTE | 2017-11-06 08:36 | PN- Pulmonary ---
Subjective HPI/Critical Care Issues: Patient continues to have left chest pain/drainage catheter removed as it had migrated into the soft tissues. Objective Current Medications: Current Medications Sig/Ana Rosa Start time Last Medication Dose Route Stop Time Status Admin Albuterol Sulfate 3 ML BID 11/02 2100 AC 11/05 INH 2134 Albuterol Sulfate 2 PUF Q4-6 PRN PRN 11/01 2215 AC 11/06 INH 0054 Amlodipine Besylate 5 MG DAILY 11/02 09 AC 11/06 PO 0810 Ampicillin Sodium/ 3,000 MG Q6 11/02 1800 AC 11/06 Sulbactam Sodium IV 0522 Sodium Chloride 100 ML Atorvastatin Calcium 10 MG 1700 11/02 1700 AC 11/05 PO 1728 Benzocaine/Menthol 1 AARTI Q2P PRN 11/05 2114 AC 11/06 PO 0811 Calcium Carbonate 500 MG DAILY PRN 11/04 1830 AC 11/05 PO 1728 Diazepam 2 MG ONCE ONE 11/05 2200 DC 11/05 PO 11/05 220 220 Enoxaparin Sodium 40 MG DAILY 11/02 09 AC 11/06 SC 0809 Gabapentin 100 MG DAILY 11/02 0900 AC 11/06 PO 0810 Gabapentin 300 MG QPM 11/01 2300 AC 11/05 PO 2043 Guaifenesin 600 MG Q12 11/01 2204 AC 11/06 PO 0810 Ibuprofen 600 MG .STK-MED ONE 11/05 1812 DC PO 11/05 1813 Ibuprofen 600 MG .STK-MED ONE 11/05 1101 DC PO 11/05 1102 Ibuprofen 600 MG Q8P PRN 11/01 2214 AC 11/06 PO 0810 Levothyroxine Sodium 0.05 MG DAILY AC 11/02 0700 AC 11/06 PO 0523 Loperamide HCl 2 MG ONE ONE 11/05 1430 DC PO 11/05 1431 Oxycodone HCl 5 MG ONCE ONE 11/05 1845 DC 11/05 PO 11/05 1846 1938 Sodium Chloride 2 SPRAY Q4P PRN 11/04 2114 AC 11/04 DANDY 2319 Vital Signs & I&O Last 24 Hrs of Vitals and I&O: Vital Signs Date Time Temp Pulse Resp B/P B/P Pulse O2 O2 Flow FiO2 Mean Ox Delivery Rate 11/06 0641 99.2 89 20 167/81 92 11/06 0000 Room Air 11/056 96 Room Air Room Air 11/05 2126 99.5 105 18 140/92 93 11/05 1600 Room Air 11/05 1453 98.4 90 18 189/104 95 Room Air 11/05 0840 94 Room Air 11/05 0839 81 158/72 Intake & Output 11/06 1600 11/06 0800 11/06 0000 Intake Total 1300 900 Output Total 1000 Balance 300 900 Intake, IV 100 Intake, Oral 1200 900 Number 1 Bowel Movements Output, Urine 1000 Room air oxygen saturation 92% exam for chest shows decreased breath sounds over the left posterior chest cardiac exam shows a regular S1 and S2 without murmurs Impression/Plan Impression/Plan Impression/Plan: 52-year-old with H. influenzae pneumonia complicated by empyema. She underwent thoracentesis and chest tube placement which had migrated into the soft tissues and has been removed. Recommendations: Repeat noncontrast CT scan of the chest to determine whether chest tube replacement and lytic therapy is necessary for loculated pleural effusion. If loculated pleural effusion remains CT surgery evaluation
[2017-11-06 09:05] LABS: ABSOLUTE BASOPHIL COUNT 0.1 /CUMM (0.0-0.2); ABSOLUTE EOSINOPHIL COUNT 0.5 /CUMM (0.0-0.7); ABSOLUTE LYMPH COUNT 1.5 /CUMM (1.2-3.4); ABSOLUTE MONOCYTE COUNT 2.3 /CUMM (0.10-0.60); BASOPHIL % 0.5 % (0.0-2.0); EOSINOPHIL % 3.3 % (0-5); GRANULOCYTE % 73.1 % (42.2-75.2); HEMATOCRIT 35.8 % (37-47); MEAN CORPUSCULAR HGB 29.1 PG (27.0-31.0); MEAN CORPUSCULAR HGB CONC 33.2 G/DL (33.0-37.0); MEAN CORPUSCULAR VOLUME 87.7 FL (81.0-99.0); MEAN PLATELET VOLUME 7.2 FL (7.4-10.4); PLATELET COUNT 448 /CUMM (130-400); RBC DISTRIBUTION WIDTH 13.1 % (11.5-14.5); RED BLOOD CELL CT 4.08 /CUMM (4.20-5.40); WHITE BLOOD CELL COUNT 16.4 /CUMM (4.8-10.8)
--- NOTE | 2017-11-06 10:38 | PN- Att Addend ---
Attending Addendum Attending Brief Note No new complaints. Temp max 99 5 blood pressure slightly elevated. No new changes on physical exam patient going down for a note CAT scan of the chest and ultrasound and depending on results IR will proceed with appropriate procedure. White count 16,400 today. Intake & Output 11/06 1600 11/06 0400 11/05 1600 11/05 0400 11/04 1600 11/04 0400 Intake Total 6725 535 6038 480 1190 370 Output Total 1000 800 500 750 550 Balance 119 628 0988 -20 440 -180 Intake, IV 100 120 350 10 Intake, Oral 3185 113 8410 480 840 360 Number 1 1 Bowel Movements Output, Urine 1000 800 500 750 550 Current Medications Sig/Ana Rosa Start time Last Medication Dose Route Stop Time Status Admin Albuterol Sulfate 3 ML BID 11/02 2100 AC 11/05 INH 2134 Albuterol Sulfate 2 PUF Q4-6 PRN PRN 11/01 221 AC 11/06 INH 0054 Amlodipine Besylate 5 MG DAILY 11/02 09 AC 11/06 PO 0810 Ampicillin Sodium/ 3,000 MG Q6 11/02 1800 AC 11/06 Sulbactam Sodium IV 0522 Sodium Chloride 100 ML Atorvastatin Calcium 10 MG 1700 11/02 1700 AC 11/05 PO 1728 Benzocaine/Menthol 1 AARTI Q2P PRN 11/05 211 AC 11/06 PO 0811 Calcium Carbonate 500 MG DAILY PRN 11/04 1830 AC 11/05 PO 1728 Diazepam 2 MG ONCE ONE 11/05 2200 DC 11/05 PO 11/05 220 220 Enoxaparin Sodium 40 MG DAILY 11/02 09 AC 11/06 SC 0809 Gabapentin 100 MG DAILY 11/02 09 AC 11/06 PO 0810 Gabapentin 300 MG QPM 11/01 2300 AC 11/05 PO 2043 Guaifenesin 600 MG Q12 11/01 220 AC 11/06 PO 0810 Ibuprofen 600 MG .STK-MED ONE 11/05 1812 DC PO 11/05 1813 Ibuprofen 600 MG .STK-MED ONE 11/05 1101 DC PO 11/05 1102 Ibuprofen 600 MG Q8P PRN 11/01 2215 AC 11/06 PO 0810 Levothyroxine Sodium 0.05 MG DAILY AC 11/02 0700 AC 11/06 PO 0523 Loperamide HCl 2 MG ONE ONE 11/05 1430 DC PO 11/05 1431 Oxycodone HCl 5 MG ONCE ONE 11/05 1845 DC 11/05 PO 11/05 1846 1938 Patient Medication 1 ED ONE ONE 11/06 0930 [facility] ED 11/06 0931 Sodium Chloride 2 SPRAY Q4P PRN 11/04 2115 AC 11/04 DANDY 2319 Laboratory Tests 11/06/17 0730: Anion Gap 12, Estimated GFR > 60, BUN/Creatinine Ratio 12.0, Magnesium 1.9, Total Bilirubin 0.7, Direct Bilirubin 0.2, AST 23, ALT 87 H, Alkaline Phosphatase 100, Total Protein 5.2 L, Albumin 2.8 L, CBC w Diff NO MAN DIFF REQ, RBC 4.08 L, MCV 87.7, MCH 29.1, MCHC 33.2, RDW 13.1, MPV 7.2 L, Gran % 73.1, Lymphocytes % 9.2 L, Monocytes % 13.9 H, Eosinophils % 3.3, Basophils % 0.5, Absolute Granulocytes 12.0 H, Absolute Lymphocytes 1.5, Absolute Monocytes 2.3 H, Absolute Eosinophils 0.5, Absolute Basophils 0.1 11/05/17 0820: CBC w Diff NO MAN DIFF REQ, RBC 4.14 L, MCV 87.3, MCH 29.5, MCHC 33.8, RDW 13.5 , MPV 6.9 L, Gran % 68.8, Lymphocytes % 10.7 L, Monocytes % 13.5 H, Eosinophils % 6.8 H, Basophils % 0.2, Absolute Granulocytes 7.8 H, Absolute Lymphocytes 1.2, Absolute Monocytes 1.5 H, Absolute Eosinophils 0.8, Absolute Basophils 0 11/04/17 0745: CBC w Diff NO MAN DIFF REQ, RBC 4.24, MCV 88.2, MCH 29.5, MCHC 33.5, RDW 13.5, MPV 7.9, Gran % 65.6, Lymphocytes % 12.0 L, Monocytes % 13.9 H, Eosinophils % 7.9 H, Basophils % 0.6, Absolute Granulocytes 7.1 H, Absolute Lymphocytes 1.3, Absolute Monocytes 1.5 H, Absolute Eosinophils 0.9, Absolute Basophils 0.1 Microbiology 11/05 1416 STOOL: Clostridium difficile Toxin A & B - COLB Microbiology 11/05 1416 STOOL: Clostridium difficile Toxin A & B - COLB Vital Signs Date Time Temp Pulse Resp B/P B/P Pulse O2 O2 Flow FiO2 Mean Ox Delivery Rate 11/06 0800 Room Air 11/06 0641 99.2 89 20 167/81 92 11/06 0000 Room Air 11/056 96 Room Air Room Air 11/05 2126 99.5 105 18 140/92 93 11/05 1600 Room Air 11/05 1453 98.4 90 18 189/104 95 Room Air
--- NOTE | 2017-11-06 12:31 | CT SCAN REPORT ---
EXAMINATION: CT CHEST WITHOUT CONTRAST CLINICAL INFORMATION: 52-year-old female with empyema/pneumonia. Reevaluate the left pleural effusion. COMPARISON: Chest CT from 11/03/2017 TECHNIQUE: Multidetector volumetric CT imaging of the chest was done. Axial MIP volume rendering provided. Sagittal and coronal reformatted images were obtained. DLP: 480 mGy-cm FINDINGS: LUNGS AND PLEURA: Mild atelectasis within the right lower lobe. Again noted are small pulmonary nodules that remain unchanged, including a stable 0.3 cm nodule in the posterior right lung apex (image 95, series 4). Although the left pleural effusion remains small, it has increased in size compared to 11/03/2017. The effusion appears loculated in the posteroinferior aspect of the left hemithorax. Also, the size of the loculated component extending along the left major fissure has increased in size. There is opacity from atelectasis or consolidation left lower lobe; this is worse compared to 11/03/2017 -- likely from worsening compressive atelectasis. Atelectasis within the inferior lingula remains similar in appearance compared to 11/03/2017. No pneumothorax. MEDIASTINUM: Small pericardial effusion is unchanged. No acute findings within the mediastinum compared to 11/03/2017. LYMPHATICS: No pathologic sized axillary, hilar or mediastinal lymph nodes. UPPER ABDOMEN: Cholelithiasis. SKELETAL AND CHEST WALL: No acute skeletal pathology compared to 11/03/2017. IMPRESSION: 1. The loculated left pleural effusions/empyema has increased in size compared to 11/03/2017. 2. Atelectasis and/or consolidation with air bronchograms in the left lower lobe has worsened compared to 11/03/2017. 3. There are a few small, stable pulmonary nodules, largest measuring up to 0.3 cm in the posterior right apex. 4. Cholelithiasis.
[2017-11-06 14:37] VITALS: BP 160/70
[2017-11-06 17:00] VITALS: BP 130/65
--- NOTE | 2017-11-06 17:03 | ULTRASOUND REPORT ---
CLINICAL HISTORY: This patient is a 52-year-old female with complex left pleural effusion status post chest tube placement on 11/02/2017. The tube was inadvertently removed. She presents to interventional radiology for ultrasound-guided left-sided chest tube placement. PROCEDURE: Ultrasound-guided left-sided chest tube placement. COMPARISON: Chest tube placement 11/02/[address] chest 11/06/2017 ACCESS: 8 Fr nonlocking pigtail chest tube. PROCEDURALIST: Oracio Graf D.O.. MEDICATIONS: 20 mL of 1% lidocaine SQ. COMPLICATIONS: None. ESTIMATED BLOOD LOSS: <5 mL. SPECIMENS: Specimens were sent for analysis as requested. PROCEDURE NOTE: Appropriate pre-procedure medical history and imaging studies were reviewed. Informed consent was obtained from the patient prior to the procedure. During this process, the procedure and potential alternatives were explained along with the intended outcome and benefits. The risks of the procedure, including the possibility of an unsuccessful procedure, as well as the risk of not doing the procedure, were discussed. The patient was given the opportunity to ask questions regarding the procedure and appeared competent to make decisions. A signed consent form documenting this discussion was placed in the medical record. A time-out procedure was performed. The patient was brought to the ultrasound department and placed in the seated position. Ultrasound images of the left thorax were obtained to localize a small complex pleural effusion. Images were permanently saved to the record. An area of the patient's left back was prepped and draped in the standard sterile fashion. 20 mL of 1% lidocaine was used to obtain local anesthesia of the skin and deeper tissues. A standard small-bore needle was introduced to sample fluid and demonstrated a safe access route. There was no evidence of traversing adjacent organs or vascular structures. An 8 Fr nonlocking pigtail chest tube was utilized for access. 15 mL of cloudy dimitri-colored fluid was aspirated. The catheter was sutured to the skin with a 0 silk suture and StatLock device and attached to an [employer] device. The patient tolerated the procedure well without evidence of immediate complications. FINDINGS: Small complex left pleural effusion. IMPRESSION: Successful left ultrasound-guided 8 Sami nonlocking pigtail chest tube placement. PLAN: 1. A postprocedure chest x-ray was ordered and will be dictated separately. 2. The patient was stable after the procedure and transferred to their room with instructions after standard monitoring.
--- NOTE | 2017-11-06 17:03 | RADIOLOGY REPORT ---
EXAMINATION:\H\ \N\XR CHEST CLINICAL INFORMATION: 52-year-old female with complex left pleural effusion status post chest tube placement. COMPARISON: 11/05/2017 TECHNIQUE: Frontal view of the chest was obtained. FINDINGS: Stable cardiomediastinal silhouette. The right lung is clear. Similar-appearing left basilar airspace disease. Interval placement of a left-sided chest tube which is present at the left lung base. Similar-appearing loculated fluid along the left major fissure. No pneumothorax. No acute osseous abnormality. IMPRESSION: Interval placement of a left-sided chest tube. Similar-appearing left basilar airspace disease and loculated pleural effusion.
--- NOTE | 2017-11-06 18:32 | PN- Infect Dx ---
Subjective Subjective: Afebrile. She had a bad night, with choking, coughing and muscle spasms but feels better today. She apparently had 2 loose stools yesterday. Objective Last 24 Hrs of Vital Signs/I&O Vital Signs Date Time Temp Pulse Resp B/P B/P Pulse O2 O2 Flow FiO2 Mean Ox Delivery Rate 11/06 1437 97.5 95 20 160/70 93 Room Air 11/06 1337 95 Room Air 11/06 0800 Room Air 11/06 0641 99.2 89 20 167/81 92 11/06 0000 Room Air 11/05 2136 96 Room Air Room Air 11/05 2127 99.5 105 18 140/92 93 Intake & Output 11/06 1600 11/06 0800 11/06 0000 Intake Total 1300 900 Output Total 1000 Balance 300 900 Intake, IV 100 Intake, Oral 1200 900 Number 1 Bowel Movements Output, Urine 1000 Patient 234 lb Weight Physical Exam Other Physical Findings: She appears comfortable in no acute distress Lungs decreased breath sounds at the left base; pigtail catheter in place in the left upper chest Results Last 24 Hours of Lab Results: Laboratory Tests 11/06 0730 Chemistry Sodium (137 - 145 mmol/L) 137 Potassium (3.5 - 5.1 mmol/L) 4.3 Chloride (98 - 107 mmol/L) 101 Carbon Dioxide (22 - 30 mmol/L) 24 Anion Gap (5 - 16) 12 BUN (7 - 17 mg/dL) 6 L Creatinine (0.5 - 1.0 mg/dL) 0.5 Estimated GFR (>60 ml/min) > 60 BUN/Creatinine Ratio (7 - 25 %) 12.0 Magnesium (1.6 - 2.3 mg/dL) 1.9 Total Bilirubin (0.2 - 1.3 mg/dL) 0.7 Direct Bilirubin (< 0.4 mg/dL) 0.2 AST (14 - 36 U/L) 23 ALT (9 - 52 U/L) 87 H Alkaline Phosphatase (<127 U/L) 100 Total Protein (6.3 - 8.2 g/dL) 5.2 L Albumin (3.5 - 5.0 g/dL) 2.8 L Hematology CBC w Diff NO MAN DIFF REQ WBC (4.8 - 10.8 /CUMM) 16.4 H RBC (4.20 - 5.40 /CUMM) 4.08 L Hgb (12.0 - 16.0 G/DL) 11.9 L Hct (37 - 47 %) 35.8 L MCV (81.0 - 99.0 FL) 87.7 MCH (27.0 - 31.0 PG) 29.1 MCHC (33.0 - 37.0 G/DL) 33.2 RDW (11.5 - 14.5 %) 13.1 Plt Count (130 - 400 /CUMM) 448 H MPV (7.4 - 10.4 FL) 7.2 L Gran % (42.2 - 75.2 %) 73.1 Lymphocytes % (20.5 - 51.1 %) 9.2 L Monocytes % (1.7 - 9.3 %) 13.9 H Eosinophils % (0 - 5 %) 3.3 Basophils % (0.0 - 2.0 %) 0.5 Absolute Granulocytes (1.4 - 6.5 /CUMM) 12.0 H Absolute Lymphocytes (1.2 - 3.4 /CUMM) 1.5 Absolute Monocytes (0.10 - 0.60 /CUMM) 2.3 H Absolute Eosinophils (0.0 - 0.7 /CUMM) 0.5 Absolute Basophils (0.0 - 0.2 /CUMM) 0.1 Last 24 Hours of Domenico Results: Left pleural fluid culture November 06 pending Stool C. difficile November 06 pending Recent Imaging Studies: CT of the chest November 06 reveals an increase in the loculated left pleural effusion/empyema compared to the previous study, with worsening of the atelectasis and/or consolidation with air bronchograms in the left lower lobe Assessment/Plan ID Impression: Stable, status post repeat thoracentesis and placement of a pigtail chest tube in the left chest earlier today, with removal of 15 cc of cloudy fluid, after the CT scan earlier today revealed an increased amount of loculated fluid. Suspect she may require lytic therapy and will defer to Thoracic surgery. She remains afebrile, with her white blood cell count increased today, likely secondary to the loculated fluid, on Unasyn for pneumonia/empyema secondary to Haemophilus influenzae, isolated from one blood culture, and, possibly, anaerobes. Suggestion: 1. Thoracic surgery follow-up regarding need for lytic therapy 2. Follow-up left pleural fluid culture 3. Follow-up stool for C. difficile 4. Continue Unasyn
[2017-11-06 22:31] VITALS: BP 142/90
[2017-11-07 06:45] VITALS: BP 150/82
--- NOTE | 2017-11-07 07:24 | PN- Housestaff ---
Subjective Follow-up For: Pneumonia empyema Subjective: patient says she was anxious yesterday around the time of her pigtail catheter placement yesterday but otherwise no overnight events afebrile on antibiotics no supplemental oxygen requirement or respiratory distress Review of Systems Constitutional: Reports: see HPI. Objective Last 24 Hrs of Vital Signs/I&O Vital Signs Date Time Temp Pulse Resp B/P B/P Pulse O2 O2 Flow FiO2 Mean Ox Delivery Rate 11/07 0913 94 Room Air 11/07 0801 79 150/82 11/07 0800 Room Air Room Air 11/07 0645 97.8 79 20 150/82 94 Room Air 11/07 0000 Room Air 11/06 2231 98.2 90 18 142/90 94 Room Air 11/06 2032 95 Room Air 11/06 1700 98.1 90 17 130/65 95 Room Air 11/06 1437 97.5 95 20 160/70 93 Room Air Intake & Output 11/07 1600 11/07 0800 11/07 0000 Intake Total 680 850 Output Total 0 600 Balance 680 250 Intake, IV 200 Intake, Oral 480 850 Number 0 Bowel Movements Output, Chest 0 0 Tube Drainage Output, Urine 600 Physical Exam General Appearance: Alert, Oriented X3, Cooperative, No Acute Distress Cardiovascular: Regular Rate, Normal S1, Normal S2, No Murmurs Lungs: left basilar crackles and pigtail catheter in place Abdomen: Normal Bowel Sounds, Soft, No Tenderness, No Masses Extremities: No Clubbing, No Cyanosis, No Edema, Normal Pulses Current Medications: Current Medications Sig/Ana Rosa Start time Last Medication Dose Route Stop Time Status Admin Albuterol Sulfate 3 ML BID 11/02 2100 AC 11/07 INH 0910 Albuterol Sulfate 2 PUF Q4-6 PRN PRN 11/01 2215 AC 11/06 INH 0054 Alteplase, 10 MG ONCE ONE 11/07 1115 CAN Recombinant IPL 11/07 1116 Alteplase, 10 MG ONCE ONE 11/07 1115 DC Recombinant IPL 11/07 1116 Sodium Chloride 20 ML Amlodipine Besylate 5 MG DAILY 11/02 0900 AC 11/07 PO 0801 Ampicillin Sodium/ 3,000 MG Q6 11/02 1800 AC 11/07 Sulbactam Sodium IV 1255 Sodium Chloride 100 ML Atorvastatin Calcium 10 MG 1700 11/02 1700 AC 11/06 PO 1813 Benzocaine/Menthol 1 AARTI Q2P PRN 11/05 2115 AC 11/06 PO 0811 Calcium Carbonate 500 MG DAILY PRN 11/04 1830 AC 11/05 PO 1728 Diazepam 2 MG ONCE ONE 11/06 1930 DC 11/06 PO 11/06 193 193 Enoxaparin Sodium 40 MG DAILY 11/02 09 AC 11/07 SC 0804 Gabapentin 100 MG DAILY 11/02 09 AC 11/07 PO 0801 Gabapentin 300 MG QPM 11/01 2300 AC 11/06 PO 205 Guaifenesin 600 MG Q12 11/01 2205 AC 11/07 PO 0801 Ibuprofen 600 MG .STK-MED ONE 11/07 0330 DC PO 11/07 0331 Ibuprofen 600 MG .STK-MED ONE 11/06 181 DC PO 11/06 1817 Ibuprofen 600 MG .STK-MED ONE 11/06 181 DC PO 11/06 1812 Ibuprofen 600 MG Q8P PRN 11/01 2215 AC 11/07 PO 1255 Levothyroxine Sodium 0.05 MG DAILY AC 11/02 07 AC 11/07 PO 0528 Sodium Chloride 2 SPRAY Q4P PRN 11/04 211 AC 11/04 DNADY 2319 Last 24 Hrs of Lab/Domenico Results Last 24 Hrs of Labs/Mics: Laboratory Tests 11/07/17 0713: CBC w Diff NO MAN DIFF REQ, RBC 4.01 L, MCV 87.6, MCH 29.3, MCHC 33.4, RDW 13.6 , MPV 6.8 L, Gran % 72.1, Lymphocytes % 9.7 L, Monocytes % 12.7 H, Eosinophils % 5.3 H, Basophils % 0.2, Absolute Granulocytes 9.1 H, Absolute Lymphocytes 1.2, Absolute Monocytes 1.6 H, Absolute Eosinophils 0.7, Absolute Basophils 0 Microbiology 11/06 1700 STOOL: Clostridium difficile Toxin A & B - COMP 11/06 162 BODY FLUID: Body Fluid Culture - RES 11/06 162 BODY FLUID: Gram Stain - RES Assessment/Plan Assessment: 52 year old female with PMH of MS on solumedrol, Ampyra, and rituximab, hypothyroidism, HTN, HLD, recurrent pneumonia, most recently 07/2017 treated as outpatient presented with complaints of severe cough, dyspnea, and pleuritic chest pain. Pneumonia and loculated left pleural effusion and empyema: s/p diagnostic and therapeutic thoracentesis but unfortunately catheter became displaced Empyema with pleural fluid 82,000 WBC, pH <7.2 high LDH Blood cultures positive for Hemophilus influenza First pleural fluid culture negative, follow up repeat on second culture from thoracentesis Afebrile, leukocytosis remains elevated today at 12.7 Continue Unasyn Repeat chest CT showed reaccumulation of pleural fluid, drained by IR yesterday Follow up pleural fluid culture and consulted CT surgery for lytic therapy TRC evaluation, continue mucinex and nebulized albuterol Cardiothoracic surgery, pulmonology, and ID consulted, follow up recommendations HTN: Continue norvasc HLD: Continue atorvastatin Hypothyroidism: Continue synthroid MS: Continue ampyra 10mg po bid Heart healthy diet DVT [id number] Full code Problem List: 1. Pleural effusion 2. Empyema 3. Pneumonia Pain Ratin Pain Location: n/a Pain Goal: Pain 4 or less Pain Plan: prn Tomorrow's Labs & Rationales: cbc
[2017-11-07 08:14] LABS: ABSOLUTE BASOPHIL COUNT 0 /CUMM (0.0-0.2); ABSOLUTE EOSINOPHIL COUNT 0.7 /CUMM (0.0-0.7); ABSOLUTE GRANULOCYTE CT 9.1 /CUMM (1.4-6.5); ABSOLUTE LYMPH COUNT 1.2 /CUMM (1.2-3.4); ABSOLUTE MONOCYTE COUNT 1.6 /CUMM (0.10-0.60); BASOPHIL % 0.2 % (0.0-2.0); EOSINOPHIL % 5.3 % (0-5); GRANULOCYTE % 72.1 % (42.2-75.2); HEMATOCRIT 35.2 % (37-47); MEAN CORPUSCULAR HGB 29.3 PG (27.0-31.0); MEAN CORPUSCULAR HGB CONC 33.4 G/DL (33.0-37.0); MEAN CORPUSCULAR VOLUME 87.6 FL (81.0-99.0); MEAN PLATELET VOLUME 6.8 FL (7.4-10.4); PLATELET COUNT 523 /CUMM (130-400); RBC DISTRIBUTION WIDTH 13.6 % (11.5-14.5); RED BLOOD CELL CT 4.01 /CUMM (4.20-5.40); WHITE BLOOD CELL COUNT 12.7 /CUMM (4.8-10.8)
--- NOTE | 2017-11-07 10:13 | PN- Att Addend ---
Attending Addendum Attending Brief Note Patient sitting in the chair family at her site, chest tube in place. Vital signs are stable No fever no other changes on physical. WBC today 12.7. Will follow treatments as per consultants. Intake & Output 11/07 1600 11/07 0400 11/06 1600 11/06 0400 11/05 1600 11/05 0400 Intake Total 667 387 1914 900 1800 480 Output Total 0 600 1000 800 500 Balance 680 250 086 782 6685 -20 Intake, IV 200 100 120 Intake, Oral 322 731 9655 900 1680 480 Number 0 1 1 Bowel Movements Output, Chest 0 0 Tube Drainage Output, Urine 600 1000 800 500 Patient 234 lb Weight Current Medications Sig/Ana Rosa Start time Last Medication Dose Route Stop Time Status Admin Albuterol Sulfate 3 ML BID 11/02 2100 AC 11/07 INH 0910 Albuterol Sulfate 2 PUF Q4-6 PRN PRN 11/01 2214 11/06 INH 0054 Amlodipine Besylate 5 MG DAILY 11/02 09 AC 11/07 PO 0801 Ampicillin Sodium/ 3,000 MG Q6 11/02 1800 AC 11/07 Sulbactam Sodium IV 0528 Sodium Chloride 100 ML Atorvastatin Calcium 10 MG 1700 11/02 1700 AC 11/06 PO 1813 Benzocaine/Menthol 1 AARTI Q2P PRN 11/05 2114 AC 11/06 PO 0811 Calcium Carbonate 500 MG DAILY PRN 11/04 1830 AC 11/05 PO 1728 Diazepam 2 MG ONCE ONE 11/06 1930 DC 11/06 PO 11/06 193 193 Enoxaparin Sodium 40 MG DAILY 11/02 09 AC 11/07 SC 0804 Gabapentin 100 MG DAILY 11/02 09 AC 11/07 PO 0801 Gabapentin 300 MG QPM 11/01 2300 AC 11/06 PO 205 Guaifenesin 600 MG Q12 11/01 2204 AC 11/07 PO 0801 Ibuprofen 600 MG .STK-MED ONE 11/07 1815 DC PO 11/06 181 Ibuprofen 600 MG .STK-MED ONE 11/06 181 DC PO 11/06 181 Ibuprofen 600 MG Q8P PRN 11/01 221 AC 11/07 PO 0331 Levothyroxine Sodium 0.05 MG DAILY AC 11/02 07 AC 11/07 PO 0528 Sodium Chloride 2 SPRAY Q4P PRN 11/04 2114 11/04 DANDY 2319 Laboratory Tests 11/07/17 0713: CBC w Diff NO MAN DIFF REQ, RBC 4.01 L, MCV 87.6, MCH 29.3, MCHC 33.4, RDW 13.6 , MPV 6.8 L, Gran % 72.1, Lymphocytes % 9.7 L, Monocytes % 12.7 H, Eosinophils % 5.3 H, Basophils % 0.2, Absolute Granulocytes 9.1 H, Absolute Lymphocytes 1.2, Absolute Monocytes 1.6 H, Absolute Eosinophils 0.7, Absolute Basophils 0 11/06/17 0730: Anion Gap 12, Estimated GFR > 60, BUN/Creatinine Ratio 12.0, Magnesium 1.9, Total Bilirubin 0.7, Direct Bilirubin 0.2, AST 23, ALT 87 H, Alkaline Phosphatase 100, Total Protein 5.2 L, Albumin 2.8 L, CBC w Diff NO MAN DIFF REQ, RBC 4.08 L, MCV 87.7, MCH 29.1, MCHC 33.2, RDW 13.1, MPV 7.2 L, Gran % 73.1, Lymphocytes % 9.2 L, Monocytes % 13.9 H, Eosinophils % 3.3, Basophils % 0.5, Absolute Granulocytes 12.0 H, Absolute Lymphocytes 1.5, Absolute Monocytes 2.3 H, Absolute Eosinophils 0.5, Absolute Basophils 0.1 11/05/17 0820: CBC w Diff NO MAN DIFF REQ, RBC 4.14 L, MCV 87.3, MCH 29.5, MCHC 33.8, RDW 13.5 , MPV 6.9 L, Gran % 68.8, Lymphocytes % 10.7 L, Monocytes % 13.5 H, Eosinophils % 6.8 H, Basophils % 0.2, Absolute Granulocytes 7.8 H, Absolute Lymphocytes 1.2, Absolute Monocytes 1.5 H, Absolute Eosinophils 0.8, Absolute Basophils 0 Microbiology 11/06 1700 STOOL: Clostridium difficile Toxin A & B - RECD 11/06 1620 BODY FLUID: Body Fluid Culture - RES 11/06 162 BODY FLUID: Gram Stain - RES 11/05 1416 STOOL: Clostridium difficile Toxin A & B - CAN Cancelled: SPECIMEN NOT RECEIVED IN LABORATORY Microbiology 11/06 1700 STOOL: Clostridium difficile Toxin A & B - RECD 06/25 1620 BODY FLUID: Body Fluid Culture - RES 11/06 1620 BODY FLUID: Gram Stain - RES 11/05 1416 STOOL: Clostridium difficile Toxin A & B - CAN Cancelled: SPECIMEN NOT RECEIVED IN LABORATORY Vital Signs Date Time Temp Pulse Resp B/P B/P Pulse O2 O2 Flow FiO2 Mean Ox Delivery Rate 11/07 0913 94 Room Air 11/07 0801 79 150/82 11/07 0645 97.8 79 20 150/82 94 Room Air 11/07 0000 Room Air 11/06 2231 98.2 90 18 142/90 94 Room Air 11/06 2032 95 Room Air 11/06 1700 98.1 90 17 130/65 95 Room Air 11/06 1437 97.5 95 20 160/70 93 Room Air 11/06 1337 95 Room Air
--- NOTE | 2017-11-07 10:17 | PN- Pulmonary ---
Subjective HPI/Critical Care Issues: CT chest scan shows persistent. Chest tube reinserted with little drainage Objective Current Medications: Current Medications Sig/Ana Rosa Start time Last Medication Dose Route Stop Time Status Admin Albuterol Sulfate 3 ML BID 11/02 2100 AC 11/07 INH 0910 Albuterol Sulfate 2 PUF Q4-6 PRN PRN 11/01 2215 AC 11/06 INH 0054 Amlodipine Besylate 5 MG DAILY 11/02 09 AC 11/07 PO 0801 Ampicillin Sodium/ 3,000 MG Q6 11/02 1800 AC 11/07 Sulbactam Sodium IV 0528 Sodium Chloride 100 ML Atorvastatin Calcium 10 MG 1700 11/02 1700 AC 11/06 PO 1813 Benzocaine/Menthol 1 AARTI Q2P PRN 11/05 211 AC 11/06 PO 0811 Calcium Carbonate 500 MG DAILY PRN 11/04 1830 AC 11/05 PO 1728 Diazepam 2 MG ONCE ONE 11/06 1930 DC 11/06 PO 11/06 193 1936 Enoxaparin Sodium 40 MG DAILY 11/02 09 AC 11/07 SC 0804 Gabapentin 100 MG DAILY 11/02 0900 AC 11/07 PO 0801 Gabapentin 300 MG QPM 11/01 2300 AC 11/06 PO 2056 Guaifenesin 600 MG Q12 11/01 2205 AC 11/07 PO 0801 Ibuprofen 600 MG .STK-MED ONE 11/06 181 DC PO 11/06 1817 Ibuprofen 600 MG .STK-MED ONE 11/06 181 DC PO 11/06 1812 Ibuprofen 600 MG Q8P PRN 11/01 2215 AC 11/07 PO 0331 Levothyroxine Sodium 0.05 MG DAILY AC 11/02 07 AC 11/07 PO 0528 Sodium Chloride 2 SPRAY Q4P PRN 11/04 211 AC 11/04 DANDY 2319 Vital Signs & I&O Last 24 Hrs of Vitals and I&O: Vital Signs Date Time Temp Pulse Resp B/P B/P Pulse O2 O2 Flow FiO2 Mean Ox Delivery Rate 11/07 0913 94 Room Air 11/07 0801 79 150/82 11/07 0645 97.8 79 20 150/82 94 Room Air 11/07 0000 Room Air 11/06 2230 98.2 90 18 142/90 94 Room Air 11/06 2032 95 Room Air 11/06 1700 98.1 90 17 130/65 95 Room Air 11/06 1437 97.5 95 20 160/70 93 Room Air 11/06 1337 95 Room Air Intake & Output 11/07 1600 11/07 0800 11/07 0000 Intake Total 680 850 Output Total 0 600 Balance 680 250 Intake, IV 200 Intake, Oral 480 850 Number 0 Bowel Movements Output, Chest 0 0 Tube Drainage Output, Urine 600 Oximetry 94% exam for chest continues to show diminished breath sounds over the left posterior chest cardiac exam shows regular S1 and S2 without murmurs Impression/Plan Impression/Plan Impression/Plan: 2-year-old woman with H. influenzae pneumonia complicated by empyema with persistent loculated pleural Recommendations: . Thoracic surgery Evaluation for installation of lytics continue chest tube drainage
--- NOTE | 2017-11-07 12:11 | PN- Thoracic Surgery ---
See Addendum Subjective Subjective: pt comfortable. no sob, no complaints. Objective Vital Signs and I&Os Vital Signs Date Time Temp Pulse Resp B/P B/P Pulse O2 O2 Flow FiO2 Mean Ox Delivery Rate 11/07 0913 94 Room Air 11/07 0801 79 150/82 11/07 0800 Room Air Room Air 11/07 0645 97.8 79 20 150/82 94 Room Air 11/07 0000 Room Air 11/06 2231 98.2 90 18 142/90 94 Room Air 11/06 2032 95 Room Air 11/06 1700 98.1 90 17 130/65 95 Room Air 11/06 1437 97.5 95 20 160/70 93 Room Air 11/06 1337 95 Room Air Intake & Output 11/07 1600 11/07 0800 11/07 0000 11/06 1600 11/06 0800 11/06 0000 Intake Total 396 546 7514 900 Output Total 0 600 1000 Balance 680 250 300 900 Intake, IV 200 100 Intake, Oral 364 249 4663 900 Number 0 1 Bowel Movements Output, Chest 0 0 Tube Drainage Output, Urine 600 1000 Patient 234 lb Weight Physical Exam: wdwn aox3 nad trachea midline lungs: diminished L side, HOLLY, pigtail cath in place, site, cdi. Assessment/Plan Assessment/Plan 52 yo female with pna/empyema sp IR placement of pigtail cath DW Dr Wahl. Dw pt, risks and benefits discussed, pt verbalizes understanding and agrees with plan. Lytics treatment provided with altiplace 10mg given through the pigtail cath. Clamp tube for 4hrs and then record output. output prior to lytics is 27cc noted in reserviour. recheck CXR in am.
[2017-11-07 14:47] VITALS: BP 176/80
--- NOTE | 2017-11-07 15:04 | PN- Infect Dx ---
Subjective Subjective: Afebrile. She complains of left sided abdominal muscle spasms. She does not have any discomfort at the chest tube site but does note an intermittent cough. Objective Last 24 Hrs of Vital Signs/I&O Vital Signs Date Time Temp Pulse Resp B/P B/P Pulse O2 O2 Flow FiO2 Mean Ox Delivery Rate 11/07 1447 98.2 92 18 176/80 93 Room Air 11/07 0913 94 Room Air 11/07 0801 79 150/82 11/07 0800 Room Air Room Air 11/07 0645 97.8 79 20 150/82 94 Room Air 11/07 0000 Room Air 11/06 2231 98.2 90 18 142/90 94 Room Air 11/06 2032 95 Room Air 11/06 1700 98.1 90 17 130/65 95 Room Air Intake & Output 11/07 1600 11/07 0800 11/07 0000 Intake Total 1810 680 850 Output Total 16 0 600 Balance 1794 680 250 Intake, IV 110 200 Intake, Oral 1700 480 850 Number 0 Bowel Movements Output, Chest 16 0 0 Tube Drainage Output, Urine 600 Physical Exam Other Physical Findings: She appears mildly uncomfortable but in no acute distress Lungs decreased breath sounds at the left base; pigtail catheter in the left upper chest, with 16 cc output overnight Heart regular rhythm with a 1/6 to 2/6 systolic ejection murmur Extremities no cyanosis, clubbing or edema Results Last 24 Hours of Lab Results: Laboratory Tests 11/07 07 Hematology CBC w Diff NO MAN DIFF REQ WBC (4.8 - 10.8 /CUMM) 12.7 H RBC (4.20 - 5.40 /CUMM) 4.01 L Hgb (12.0 - 16.0 G/DL) 11.7 L Hct (37 - 47 %) 35.2 L MCV (81.0 - 99.0 FL) 87.6 MCH (27.0 - 31.0 PG) 29.3 MCHC (33.0 - 37.0 G/DL) 33.4 RDW (11.5 - 14.5 %) 13.6 Plt Count (130 - 400 /CUMM) 523 H MPV (7.4 - 10.4 FL) 6.8 L Gran % (42.2 - 75.2 %) 72.1 Lymphocytes % (20.5 - 51.1 %) 9.7 L Monocytes % (1.7 - 9.3 %) 12.7 H Eosinophils % (0 - 5 %) 5.3 H Basophils % (0.0 - 2.0 %) 0.2 Absolute Granulocytes (1.4 - 6.5 /CUMM) 9.1 H Absolute Lymphocytes (1.2 - 3.4 /CUMM) 1.2 Absolute Monocytes (0.10 - 0.60 /CUMM) 1.6 H Absolute Eosinophils (0.0 - 0.7 /CUMM) 0.7 Absolute Basophils (0.0 - 0.2 /CUMM) 0 Last 24 Hours of Domenico Results: Stool C. difficile November 06 negative Left pleural fluid culture November 06 negative Assessment/Plan ID Impression: Stable, status post repeat thoracentesis and placement of a pigtail chest tube in the left chest yesterday, with removal of only 15 cc of cloudy fluid, status post treatment with Alteplase earlier today. She remains afebrile, with her white blood cell count today decreased, on Unasyn, Day 5 of treated for pneumonia/empyema secondary to Haemophilus influenzae, isolated from one blood culture. Suggestion: 1. Further management of her pigtail catheter/lytic therapy per Thoracic surgery 2. Continue Unasyn
--- NOTE | 2017-11-07 15:34 | Cons- Thoracic Surgery ---
General Information and HPI Consulting Request Date of Consult: 11/03/17 Requested By: Kush Castanon MD Reason for Consult: Evaluate empyema Source of Information: patient, old records, PCP History of Present Illness: Patient is a 52-year-old with multiple sclerosis who has had a recent cough with pleuritic pain. She was admitted with a leukocytosis and x-ray evaluation is shown a left lung pneumonia with a parapneumonic effusion. Drainage of the effusion is showing chemistry consistent with an empyema. A catheter was left in place and thoracic surgical evaluation is asked for help in management and treatment. Allergies/Medications Allergies: Coded Allergies: NO KNOWN ALLERGIES (06/23/14) Home Med List: Albuterol Sulfate (Proair Hfa) 90 MCG HFA.AER.AD 2 PUF INH Q4-6 PRN PRN SHORTNESS OF BREATH (Reported) Amlodipine Besylate 5 MG TABLET 1 TAB PO DAILY HEART (Reported) Atorvastatin Calcium 10 MG TABLET 1 TAB PO DAILY CHOLESTEROL (Reported) Azithromycin (Zithromax) 500 MG TABLET 1 TAB PO DAILY BRONCHITIS Beclomethasone Dipropionate (QVAR) 80 MCG AER.W.ADAP 2 PUF INH BID BREATHING PROBLEMS (Reported) Benzonatate (Tessalon Perle) 100 MG CAPSULE 1 CAP PO TID PRN COUGH Codeine Phosphate/Guaifenesi (Cheratussin AC Syrup) 10 MG-100 MG/5 ML LIQUID 10 ML PO BID PRN COUGH Dalfampridine (Ampyra) 10 MG TAB.ER.12H 1 TAB PO BID UNKNOWN (Reported) Dextroamphetamine/Amphetamine (Dextroamp-Amphetamin 10 MG Tab) 10 MG TABLET 1 TAB PO TID FATIGUE (Reported) Diazepam (Valium) 5 MG TABLET 1 TAB PO BIDP PRN MS HUG Ergocalciferol (Vitamin D2) (Vitamin D2) 50,000 UNIT CAPSULE 1 CAP PO QW VITAMIN SUPPORT (Reported) Fluticasone/Vilanterol (Breo Ellipta 100-25 Mcg INH) (Unknown Strength) BLST.W.DEV (Unknown Dose) PO DAILY SHORTNESS OF BREATH (Reported) Gabapentin 100 MG CAPSULE 1 CAP PO BID SPASMS (Reported) Gabapentin 300 MG CAPSULE 1 CAP PO QPM SPASMS (Reported) Levothyroxine Sodium 50 MCG TABLET 1 TAB PO DAILY AC THYROID (Reported) Methylprednisolone. (Medrol) 4 MG TAB.DS.PK 1 DP PO AD INFLAMMATION 6 on day 1 then reduce by one tablet daily until gone Current Medications: Current Medications Sig/Ana Rosa Start time Last Medication Dose Route Stop Time Status Admin Albuterol Sulfate 3 ML BID 11/02 2100 AC 11/07 INH 0910 Albuterol Sulfate 2 PUF Q4-6 PRN PRN 11/01 2215 AC 11/06 INH 0054 Alteplase, 10 MG ONCE ONE 11/07 1115 CAN Recombinant IPL 11/07 1116 Alteplase, 10 MG ONCE ONE 11/07 1115 DC Recombinant IPL 11/07 1116 Sodium Chloride 20 ML Amlodipine Besylate 5 MG DAILY 11/02 09 AC 11/07 PO 0801 Ampicillin Sodium/ 3,000 MG Q6 11/02 1800 AC 11/07 Sulbactam Sodium IV 1255 Sodium Chloride 100 ML Atorvastatin Calcium 10 MG 1700 11/02 1700 AC 11/06 PO 1813 Benzocaine/Menthol 1 AARTI Q2P PRN 11/05 211 AC 11/06 PO 0811 Calcium Carbonate 500 MG DAILY PRN 11/04 1830 AC 11/05 PO 1728 Diazepam 2 MG TIDPRN PRN 11/07 1430 AC 11/07 PO 1419 Diazepam 2 MG ONCE ONE 11/06 1930 DC 11/06 PO 11/06 193 193 Enoxaparin Sodium 40 MG DAILY 11/02 09 AC 11/07 SC 0804 Gabapentin 100 MG DAILY 11/02 0900 AC 11/07 PO 0801 Gabapentin 300 MG QPM 11/01 2300 11/06 PO 2056 Guaifenesin 600 MG Q12 11/01 2205 11/07 PO 0801 Ibuprofen 600 MG .STK-MED ONE 11/07 0330 DC PO 11/07 0331 Ibuprofen 600 MG .STK-MED ONE 11/06 1816 DC PO 11/06 1817 Ibuprofen 600 MG .STK-MED ONE 11/06 1811 DC PO 11/06 1812 Ibuprofen 600 MG Q8P PRN 11/01 2214 AC 11/07 PO 1255 Levothyroxine Sodium 0.05 MG DAILY AC 11/02 0700 AC 11/07 PO 0528 Sodium Chloride 2 SPRAY Q4P PRN 11/04 2114 AC 11/04 DANDY 2319 Past History Medical History Blood Transfusion Hx: No Neurological: multiple sclerosis EENT: NONE Cardiovascular: hypertension, hyperlipidemia Respiratory: asthma Gastrointestinal: NONE Hepatic: NONE Renal: NONE Musculoskeletal: chronic back pain, disk herniation Psychiatric: NONE Endocrine: hypothyroidism Blood Disorders: NONE Cancer(s): NONE TERRITORY REPRESENTATIVE/Reproductive: NONE Surgical History Pertinent Surgical History: none Family History Relations & Conditions If Any: MOTHER FH: myocardial infarction, Onset: 60+. Psychosocial History Where Do You Live? Home Primary Language: French Smoking Status: Never Smoked ETOH Use: denies use Illicit Drug Use: denies illicit drug use Functional Ability Ambulation: walker Review of Systems Review of Systems: Review systems is notable for the cough which is productive of yellowish sputum. She has had no hemoptysis. She is not dyspneic. There is an associated left pleuritic chest pain. She's had no fevers or chills. The rest of the 12 point review of systems is unremarkable for the current pulmonary process. Exam & Diagnostic Data Vital Signs and I&O Vital Signs Date Time Temp Pulse Resp B/P B/P Pulse O2 O2 Flow FiO2 Mean Ox Delivery Rate 11/07 1447 98.2 92 18 176/80 93 Room Air 11/07 0913 94 Room Air 11/07 0801 79 150/82 11/07 0800 Room Air Room Air 11/07 0645 97.8 79 20 150/82 94 Room Air 11/07 0000 Room Air 11/06 2231 98.2 90 18 142/90 94 Room Air 11/06 2032 95 Room Air 11/06 1700 98.1 90 17 130/65 95 Room Air Intake & Output 11/07 1600 11/07 0800 11/07 0000 11/06 1600 11/06 0800 11/06 0000 Intake Total 1810 542 484 0137 900 Output Total 16 0 600 1000 Balance 1794 680 250 300 900 Intake, IV 110 200 100 Intake, Oral 1700 557 628 7084 900 Number 0 1 Bowel Movements Output, Chest 16 0 0 Tube Drainage Output, Urine 600 1000 Patient 234 lb Weight Physical Exam: On physical examination she appears well. Her skin is warm and well perfused no suspicious lesions noted. The sclerae are anicteric and mucous membranes are moist. There is no cervical or subclavicular lymphadenopathy. The breath sounds are decreased on the left side with no wheezes rhonchi noted. The cardiac exam shows regular rhythm and rate no murmurs or sounds. The abdomen is soft and nontender with no masses. The periphery shows no cyanosis clubbing or edema. Neurologic exam is grossly normal for motor and sensory function. Last 24 Hours of Labs: Laboratory Tests 11/07 0713 Hematology CBC w Diff NO MAN DIFF REQ WBC (4.8 - 10.8 /CUMM) 12.7 H RBC (4.20 - 5.40 /CUMM) 4.01 L Hgb (12.0 - 16.0 G/DL) 11.7 L Hct (37 - 47 %) 35.2 L MCV (81.0 - 99.0 FL) 87.6 MCH (27.0 - 31.0 PG) 29.3 MCHC (33.0 - 37.0 G/DL) 33.4 RDW (11.5 - 14.5 %) 13.6 Plt Count (130 - 400 /CUMM) 523 H MPV (7.4 - 10.4 FL) 6.8 L Gran % (42.2 - 75.2 %) 72.1 Lymphocytes % (20.5 - 51.1 %) 9.7 L Monocytes % (1.7 - 9.3 %) 12.7 H Eosinophils % (0 - 5 %) 5.3 H Basophils % (0.0 - 2.0 %) 0.2 Absolute Granulocytes (1.4 - 6.5 /CUMM) 9.1 H Absolute Lymphocytes (1.2 - 3.4 /CUMM) 1.2 Absolute Monocytes (0.10 - 0.60 /CUMM) 1.6 H Absolute Eosinophils (0.0 - 0.7 /CUMM) 0.7 Absolute Basophils (0.0 - 0.2 /CUMM) 0 Imaging Results: CT scanning shows a complex left parapneumonic effusion with a loculated collection in the fissure. By CT scan the pleural catheter is in the soft tissue and is not intrathoracic. Assessment/Plan Assessment/Plan 52-year-old with a left pneumonia and complicated parapneumonic effusion. The catheter that was placed is no longer intrathoracic. Medicine has spoken to interventional radiology and efforts will be made to replace the catheter. Once replaced we will proceed with lytic treatment particularly for drainage of the fairly large loculated collection that is in the fissure. Consult Acknowledgment - Thank you for your consult request.
[2017-11-07 22:21] VITALS: BP 160/80
--- NOTE | 2017-11-08 07:08 | PN- Housestaff ---
Subjective Follow-up For: pneumonia empyema Subjective: patient was upset that her gabapentin dose wasn't ordered properly but is happy that it is now corrected, no overnight events, 300+cc chest tube output overnight after lytic therapy afebrile on antibiotics Review of Systems Constitutional: Reports: see HPI. Objective Last 24 Hrs of Vital Signs/I&O Vital Signs Date Time Temp Pulse Resp B/P B/P Pulse O2 O2 Flow FiO2 Mean Ox Delivery Rate 11/08 0734 97.5 82 17 156/72 92 11/08 0000 Room Air 11/07 2221 98.0 80 18 160/80 93 Room Air 11/07 1935 93 Room Air 11/07 1600 Room Air 11/07 1447 98.2 92 18 176/80 93 Room Air 11/07 0913 94 Room Air Intake & Output 11/08 1600 11/08 0800 11/08 0000 Intake Total 220 850 Output Total 420 421 Balance -200 429 Intake, IV 220 Intake, Oral 850 Number 1 Bowel Movements Output, Chest 20 421 Tube Drainage Output, Urine 400 Physical Exam General Appearance: Alert, Oriented X3, Cooperative, No Acute Distress Cardiovascular: Regular Rate, Normal S1, Normal S2, No Murmurs Lungs: improved aeration left base, pigtail catheter in place Abdomen: Normal Bowel Sounds, Soft, No Tenderness, No Masses Extremities: No Clubbing, No Cyanosis, No Edema, Normal Pulses Current Medications: Current Medications Sig/Ana Rosa Start time Last Medication Dose Route Stop Time Status Admin Albuterol Sulfate 3 ML BID 11/02 2100 AC 11/07 INH 1935 Albuterol Sulfate 2 PUF Q4-6 PRN PRN 11/01 2215 AC 11/06 INH 0054 Alteplase, 10 MG ONCE ONE 11/07 1115 CAN Recombinant IPL 11/07 1116 Alteplase, 10 MG ONCE ONE 11/07 1115 DC Recombinant IPL 11/07 1116 Sodium Chloride 20 ML Amlodipine Besylate 5 MG DAILY 11/02 0900 AC 11/07 PO 0801 Ampicillin Sodium/ 3,000 MG Q6 11/02 1800 AC 11/08 Sulbactam Sodium IV 0530 Sodium Chloride 100 ML Atorvastatin Calcium 10 MG 1700 11/02 1700 AC 11/07 PO 1742 Benzocaine/Menthol 1 AARTI Q2P PRN 11/05 2115 AC 11/06 PO 0811 Calcium Carbonate 500 MG DAILY PRN 11/04 1830 AC 11/05 PO 1728 Diazepam 2 MG TIDPRN PRN 11/07 1430 AC 11/07 PO 1419 Enoxaparin Sodium 40 MG DAILY 11/02 0900 AC 11/07 SC 0804 Gabapentin 100 MG 0800 & 1700 11/07 1810 AC 11/07 PO 1811 Gabapentin 100 MG DAILY 11/02 0900 DC 11/07 PO 0801 Gabapentin 300 MG QPM 11/01 2300 AC 11/07 PO 2028 Guaifenesin 600 MG Q12 11/01 2205 AC 11/07 PO 2028 Ibuprofen 600 MG .STK-MED ONE 11/07 202 DC PO 11/07 202 Ibuprofen 600 MG .STK-MED ONE 11/07 1253 DC PO 11/07 1254 Ibuprofen 600 MG Q8P PRN 11/01 2215 AC 11/07 PO 2022 Levothyroxine Sodium 0.05 MG DAILY AC 11/02 0700 AC 11/08 PO 0531 Sodium Chloride 2 SPRAY Q4P PRN 11/04 2115 AC 11/04 DANDY 2319 Last 24 Hrs of Lab/Domenico Results Last 24 Hrs of Labs/Mics: Laboratory Tests 11/08/17 0730: CBC w Diff Pending, WBC Pending, RBC Pending, Hgb Pending, Hct Pending, MCV Pending, MCH Pending, MCHC Pending, RDW Pending, Plt Count Pending, MPV Pending Assessment/Plan Assessment: 52 year old female with PMH of MS on solumedrol, Ampyra, and rituximab, hypothyroidism, HTN, HLD, recurrent pneumonia, most recently 07/2017 treated as outpatient presented with complaints of severe cough, dyspnea, and pleuritic chest pain. Pneumonia and loculated left pleural effusion and empyema: s/p diagnostic and therapeutic thoracentesis (82,000 WBC, pH <7.2, high LDH) culture neg Blood cultures positive for Hemophilus influenza Afebrile, leukocytosis remains elevated, follow up CBC Continue Unasyn Repeat chest CT showed reaccumulation of pleural fluid, s/p pigtail catheter with IR CT surgery gave lytics through the catheter overnight with 350cc output overnight Follow up repeat PA/lateral chest x-ray today to reassess loculated effusion s/ p lytics Cardiothoracic surgery, pulmonology, and ID consulted, follow up recommendations TRC evaluation, continue mucinex and nebulized albuterol HTN: Continue norvasc HLD: Continue atorvastatin Hypothyroidism: Continue synthroid MS: Continue ampyra 10mg po bid Heart healthy diet DVT ppx-lovenox Full code Problem List: 1. Empyema 2. Pleural effusion 3. Pneumonia Pain Ratin Pain Location: n/a Pain Goal: Pain 4 or less Pain Plan: prn Tomorrow's Labs & Rationales: cbc
[2017-11-08 07:34] VITALS: BP 156/72
[2017-11-08 08:04] LABS: ABSOLUTE BASOPHIL COUNT 0 /CUMM (0.0-0.2); ABSOLUTE EOSINOPHIL COUNT 0.7 /CUMM (0.0-0.7); ABSOLUTE GRANULOCYTE CT 9.9 /CUMM (1.4-6.5); ABSOLUTE LYMPH COUNT 1.3 /CUMM (1.2-3.4); ABSOLUTE MONOCYTE COUNT 1.5 /CUMM (0.10-0.60); BASOPHIL % 0.3 % (0.0-2.0); EOSINOPHIL % 4.9 % (0-5); GRANULOCYTE % 73.8 % (42.2-75.2); HEMATOCRIT 37.2 % (37-47); MEAN CORPUSCULAR HGB 29.2 PG (27.0-31.0); MEAN CORPUSCULAR HGB CONC 33.3 G/DL (33.0-37.0); MEAN CORPUSCULAR VOLUME 87.8 FL (81.0-99.0); MEAN PLATELET VOLUME 6.7 FL (7.4-10.4); PLATELET COUNT 604 /CUMM (130-400); RBC DISTRIBUTION WIDTH 13.5 % (11.5-14.5); RED BLOOD CELL CT 4.24 /CUMM (4.20-5.40); WHITE BLOOD CELL COUNT 13.4 /CUMM (4.8-10.8)
--- NOTE | 2017-11-08 08:49 | PN- Pulmonary ---
Subjective HPI/Critical Care Issues: Patient is status post replacement of chest tube and lytic therapy with drainage of 400 mL Objective Current Medications: Current Medications Sig/Ana Rosa Start time Last Medication Dose Route Stop Time Status Admin Albuterol Sulfate 3 ML BID 11/02 2100 AC 11/08 INH 0835 Albuterol Sulfate 2 PUF Q4-6 PRN PRN 11/01 2215 AC 11/06 INH 0054 Alteplase, 10 MG ONCE ONE 11/07 1115 CAN Recombinant IPL 11/07 1116 Alteplase, 10 MG ONCE ONE 11/07 1115 DC Recombinant IPL 11/07 1116 Sodium Chloride 20 ML Amlodipine Besylate 5 MG DAILY 11/02 0900 AC 11/08 PO 0810 Ampicillin Sodium/ 3,000 MG Q6 11/02 1800 AC 11/08 Sulbactam Sodium IV 0530 Sodium Chloride 100 ML Atorvastatin Calcium 10 MG 1700 11/02 1700 AC 11/07 PO 1742 Benzocaine/Menthol 1 AARTI Q2P PRN 11/05 2115 AC 11/06 PO 0811 Calcium Carbonate 500 MG DAILY PRN 11/04 1830 AC 11/05 PO 1728 Diazepam 2 MG TIDPRN PRN 11/07 1430 AC 11/07 PO 1419 Enoxaparin Sodium 40 MG DAILY 11/02 0900 11/08 SC 0810 Gabapentin 100 MG 0800 & 1700 11/07 1810 AC 11/08 PO 0811 Gabapentin 100 MG DAILY 11/02 0900 DC 11/07 PO 0801 Gabapentin 300 MG QPM 11/01 2300 AC 11/07 PO 2029 Guaifenesin 600 MG Q12 11/01 2205 11/08 PO 0810 Ibuprofen 600 MG .STK-MED ONE 11/07 202 DC PO 11/07 202 Ibuprofen 600 MG .STK-MED ONE 11/07 1253 DC PO 11/07 1254 Ibuprofen 600 MG Q8P PRN 11/01 2215 AC 11/07 PO 2023 Levothyroxine Sodium 0.05 MG DAILY AC 11/02 0700 AC 11/08 PO 0531 Sodium Chloride 2 SPRAY Q4P PRN 11/04 211 11/04 DANDY 2319 Vital Signs & I&O Last 24 Hrs of Vitals and I&O: Vital Signs Date Time Temp Pulse Resp B/P B/P Pulse O2 O2 Flow FiO2 Mean Ox Delivery Rate 11/08 0839 95 Room Air 11/08 0810 72 142/78 11/08 0734 97.5 82 17 156/72 92 11/08 0000 Room Air 11/07 2221 98.0 80 18 160/80 93 Room Air 11/07 1935 93 Room Air 11/07 1600 Room Air 11/07 1447 98.2 92 18 176/80 93 Room Air 11/07 0913 94 Room Air Intake & Output 11/08 1600 11/08 0800 11/08 0000 Intake Total 220 850 Output Total 420 421 Balance -200 429 Intake, IV 220 Intake, Oral 850 Number 1 Bowel Movements Output, Chest 20 421 Tube Drainage Output, Urine 400 Her oxygen saturation 95% exam for chest shows diminished breath sounds over the left posterior chest cardiac exam shows a regular S1 and S2 without murmurs Impression/Plan Impression/Plan Impression/Plan: 52-year-old patient with Haemophilus pneumonia, complicated by empyema status post drainage after" lytics Recommendations: . Patient will likely need reinstallation of lytic therapy today. Repeat CAT scan in the next 1-2 days.
--- NOTE | 2017-11-08 10:16 | PN- Att Addend ---
Attending Addendum Attending Brief Note Patient feeling better, sitting in the chair. Patient had her procedure yesterday. May need a second treatment. Appreciate pulmonary's input and recommendations. No major changes on physical. Her vital signs are stable patient has no fever. Her last white count was 13,400. Continue present treatment Intake & Output 11/08 1600 11/08 0400 11/07 1600 11/07 0400 11/06 1600 11/06 0400 Intake Total 439 701 9746 850 1300 900 Output Total 420 421 16 600 1000 Balance -702 848 0213 250 300 900 Intake, IV 220 310 100 Intake, Oral 850 2180 850 1200 900 Number 1 0 1 Bowel Movements Output, Chest 20 421 16 0 Tube Drainage Output, Urine 372 054 3994 Patient 234 lb Weight Current Medications Sig/Ana Rosa Start time Last Medication Dose Route Stop Time Status Admin Albuterol Sulfate 3 ML BID 11/02 2100 AC 11/08 INH 0835 Albuterol Sulfate 2 PUF Q4-6 PRN PRN 11/01 2215 AC 11/06 INH 0054 Alteplase, 10 MG ONCE ONE 11/08 1000 DC Recombinant IPL 11/08 1001 Sodium Chloride 20 ML Alteplase, 10 MG ONCE ONE 11/07 1115 CAN Recombinant IPL 11/07 1116 Alteplase, 10 MG ONCE ONE 11/07 1115 DC Recombinant IPL 11/07 1116 Sodium Chloride 20 ML Amlodipine Besylate 5 MG DAILY 11/02 09 AC 11/08 PO 0810 Ampicillin Sodium/ 3,000 MG Q6 11/02 1800 AC 11/08 Sulbactam Sodium IV 0530 Sodium Chloride 100 ML Atorvastatin Calcium 10 MG 17011/02 17011/07 PO 1742 Benzocaine/Menthol 1 AARTI Q2P PRN 11/05 2115 AC 11/06 PO 0811 Calcium Carbonate 500 MG DAILY PRN 11/04 1830 11/05 PO 1728 Diazepam 2 MG TIDPRN PRN 11/07 1430 11/07 PO 1419 Enoxaparin Sodium 40 MG DAILY 11/02 0900 AC 11/08 SC 0810 Gabapentin 100 MG 0800 & 1700 11/07 1810 11/08 PO 0811 Gabapentin 100 MG DAILY 11/02 0900 DC 11/07 PO 0801 Gabapentin 300 MG QPM 11/01 2300 AC 11/07 PO 2029 Guaifenesin 600 MG Q12 11/01 2205 AC 11/08 PO 0810 Ibuprofen 600 MG .STK-MED ONE 11/07 2020 DC PO 11/07 202 Ibuprofen 600 MG .STK-MED ONE 11/07 1253 DC PO 11/07 1254 Ibuprofen 600 MG Q8P PRN 11/01 2214 AC 11/07 PO 2022 Levothyroxine Sodium 0.05 MG DAILY AC 11/02 0700 AC 11/08 PO 0531 Sodium Chloride 2 SPRAY Q4P PRN 11/04 211 11/04 DANDY 2319 Laboratory Tests 11/08/17 0730: CBC w Diff NO MAN DIFF REQ, RBC 4.24, MCV 87.8, MCH 29.2, MCHC 33.3, RDW 13.5, MPV 6.7 L, Gran % 73.8, Lymphocytes % 10.0 L, Monocytes % 11.0 H, Eosinophils % 4.9, Basophils % 0.3, Absolute Granulocytes 9.9 H, Absolute Lymphocytes 1.3, Absolute Monocytes 1.5 H, Absolute Eosinophils 0.7, Absolute Basophils 0 11/07/17 0713: CBC w Diff NO MAN DIFF REQ, RBC 4.01 L, MCV 87.6, MCH 29.3, MCHC 33.4, RDW 13.6 , MPV 6.8 L, Gran % 72.1, Lymphocytes % 9.7 L, Monocytes % 12.7 H, Eosinophils % 5.3 H, Basophils % 0.2, Absolute Granulocytes 9.1 H, Absolute Lymphocytes 1.2, Absolute Monocytes 1.6 H, Absolute Eosinophils 0.7, Absolute Basophils 0 11/06/17 0730: Anion Gap 12, Estimated GFR > 60, BUN/Creatinine Ratio 12.0, Magnesium 1.9, Total Bilirubin 0.7, Direct Bilirubin 0.2, AST 23, ALT 87 H, Alkaline Phosphatase 100, Total Protein 5.2 L, Albumin 2.8 L, CBC w Diff NO MAN DIFF REQ, RBC 4.08 L, MCV 87.7, MCH 29.1, MCHC 33.2, RDW 13.1, MPV 7.2 L, Gran % 73.1, Lymphocytes % 9.2 L, Monocytes % 13.9 H, Eosinophils % 3.3, Basophils % 0.5, Absolute Granulocytes 12.0 H, Absolute Lymphocytes 1.5, Absolute Monocytes 2.3 H, Absolute Eosinophils 0.5, Absolute Basophils 0.1 Microbiology 11/06 170 STOOL: Clostridium difficile Toxin A & B - COMP 11/06 162 BODY FLUID: Body Fluid Culture - RES 11/07 1619 BODY FLUID: Gram Stain - RES 11/05 141 STOOL: Clostridium difficile Toxin A & B - CAN Cancelled: SPECIMEN NOT RECEIVED IN LABORATORY Microbiology 11/06 1699 STOOL: Clostridium difficile Toxin A & B - COMP 11/07 1619 BODY FLUID: Body Fluid Culture - RES 11/06 162 BODY FLUID: Gram Stain - RES 11/05 141 STOOL: Clostridium difficile Toxin A & B - CAN Cancelled: SPECIMEN NOT RECEIVED IN LABORATORY Vital Signs Date Time Temp Pulse Resp B/P B/P Pulse O2 O2 Flow FiO2 Mean Ox Delivery Rate 11/08 0839 95 Room Air 11/08 0810 72 142/78 11/08 0734 97.5 82 17 156/72 92 11/08 0000 Room Air 11/07 2221 98.0 80 18 160/80 93 Room Air 11/07 1935 93 Room Air 11/07 1600 Room Air 11/07 1447 98.2 92 18 176/80 93 Room Air
--- NOTE | 2017-11-08 11:05 | RADIOLOGY REPORT ---
EXAMINATION: XR CHEST CLINICAL INFORMATION: Empyema status post lytic therapy and IR tube placement. COMPARISON: CXR from 11/05/2017 and 11/06/2017 TECHNIQUE: 2 views of the chest were obtained. FINDINGS: A pleural change catheter is present in the posterolateral aspect of the inferior left hemithorax. The pleural fluid in this area has significantly decreased compared to 11/05/2017. The volume of loculated fluid in the major fissure is not appreciably changed. Lungs are hypoinflated. No pneumothorax or other acute pathology. IMPRESSION: The component of the pleural effusion in the posteroinferior aspect of the left upper thorax has decreased after pleural drainage catheter placement. However, the loculated component along the major fissure is not appreciably changed in size.
--- NOTE | 2017-11-08 11:47 | PN- Thoracic Surgery ---
Subjective Subjective: Lytics recommended per Dr. Henry and Dr. Wahl Pt resting comfortably. Notes improvement following administration of lytics one day prior. No c/o worsening chest pain or sob. Objective Vital Signs and I&Os Vital Signs Date Time Temp Pulse Resp B/P B/P Pulse O2 O2 Flow FiO2 Mean Ox Delivery Rate 11/08 0839 95 Room Air 11/08 0810 72 142/78 11/08 0734 97.5 82 17 156/72 92 11/08 0000 Room Air 11/07 2221 98.0 80 18 160/80 93 Room Air 11/07 1935 93 Room Air 11/07 1600 Room Air 11/07 1447 98.2 92 18 176/80 93 Room Air Intake & Output 11/08 1600 11/08 0800 11/08 0000 11/07 1600 11/07 0800 11/07 0000 Intake Total 615 192 9717 680 850 Output Total 420 421 16 0 600 Balance -648 688 1242 680 250 Intake, IV 220 110 200 Intake, Oral 850 1700 480 850 Number 1 0 Bowel Movements Output, Chest 20 421 16 0 0 Tube Drainage Output, Urine 400 600 Assessment/Plan Assessment/Plan Alteplace 10 mg in 20 cc 0.9% nacl administered through pigtail catheter. Patient tolerated procedure well. Catheter clamped at valve as well as chest tube tubing. Will remain clamped for 4 hours. Initial administration 1130 am, unclamp at 1530.
[2017-11-08 14:24] VITALS: BP 157/83
--- NOTE | 2017-11-08 15:58 | PN- Infect Dx ---
Subjective Subjective: Afebrile without complaints Objective Last 24 Hrs of Vital Signs/I&O Vital Signs Date Time Temp Pulse Resp B/P B/P Pulse O2 O2 Flow FiO2 Mean Ox Delivery Rate 11/08 1424 97.8 88 18 157/83 93 Room Air 11/08 0839 95 Room Air 11/08 0810 72 142/78 11/08 0800 Room Air 11/08 0734 97.5 82 17 156/72 92 11/08 0000 Room Air 11/07 2221 98.0 80 18 160/80 93 Room Air 11/07 1935 93 Room Air 11/07 1600 Room Air Intake & Output 11/08 1600 11/08 0800 11/08 0000 Intake Total 320 220 850 Output Total 0 420 421 Balance 320 -200 429 Intake, IV 220 Intake, Oral 320 850 Number 1 1 Bowel Movements Output, Chest 0 20 421 Tube Drainage Output, Urine 400 Physical Exam Other Physical Findings: She appears comfortable in no acute distress Lungs crackles with decreased breath sounds at the left base; pigtail catheter in place with 437 cc output yesterday and 20 cc overnight Heart regular rhythm with no murmur Extremities no cyanosis, clubbing or edema Results Last 24 Hours of Lab Results: Laboratory Tests 11/08 0730 Hematology CBC w Diff NO MAN DIFF REQ WBC (4.8 - 10.8 /CUMM) 13.4 H RBC (4.20 - 5.40 /CUMM) 4.24 Hgb (12.0 - 16.0 G/DL) 12.4 Hct (37 - 47 %) 37.2 MCV (81.0 - 99.0 FL) 87.8 MCH (27.0 - 31.0 PG) 29.2 MCHC (33.0 - 37.0 G/DL) 33.3 RDW (11.5 - 14.5 %) 13.5 Plt Count (130 - 400 /CUMM) 604 H MPV (7.4 - 10.4 FL) 6.7 L Gran % (42.2 - 75.2 %) 73.8 Lymphocytes % (20.5 - 51.1 %) 10.0 L Monocytes % (1.7 - 9.3 %) 11.0 H Eosinophils % (0 - 5 %) 4.9 Basophils % (0.0 - 2.0 %) 0.3 Absolute Granulocytes (1.4 - 6.5 /CUMM) 9.9 H Absolute Lymphocytes (1.2 - 3.4 /CUMM) 1.3 Absolute Monocytes (0.10 - 0.60 /CUMM) 1.5 H Absolute Eosinophils (0.0 - 0.7 /CUMM) 0.7 Absolute Basophils (0.0 - 0.2 /CUMM) 0 Last 24 Hours of Domenico Results: Left pleural fluid culture November 06 negative Recent Imaging Studies: Chest x-ray November 08 reveals a significant decrease in the pleural fluid in the posterioinferior aspect of the left upper thorax; no change in the loculated fluid in the major fissure Assessment/Plan ID Impression: Stable, status post treatment with lytics yesterday for loculated fluid in the left chest, representing a residual empyema, with a good response and now status post a repeat dose earlier this afternoon. She remains afebrile, but her white blood cell count remains mildly elevated, on Unasyn, Day 6 of treatment for pneumonia/empyema secondary to Haemophilus influenzae, which was isolated from one blood culture. Suggestion: 1. Further management with regard to lytics and her pigtail catheter per Thoracic surgery 2. Continue Unasyn
[2017-11-08 22:40] VITALS: BP 140/80
[2017-11-09 06:12] VITALS: BP 162/88
--- NOTE | 2017-11-09 07:22 | PN- Housestaff ---
Subjective Follow-up For: pneumonia empyema Subjective: afebrile on antibiotics no overnight events or new complaints additional 50cc of chest tube output overnight after second administration of alteplase Review of Systems Constitutional: Reports: see HPI. Objective Last 24 Hrs of Vital Signs/I&O Vital Signs Date Time Temp Pulse Resp B/P B/P Pulse O2 O2 Flow FiO2 Mean Ox Delivery Rate 11/09 0612 98.0 78 20 162/88 93 11/09 0000 Room Air 11/08 2240 98.4 92 20 140/80 95 Room Air 11/08 2149 96 Room Air Room Air 11/08 1424 97.8 88 18 157/83 93 Room Air 11/08 0839 95 Room Air 11/08 0810 72 142/78 11/08 0800 Room Air 11/08 0734 97.5 82 17 156/72 92 Intake & Output 11/09 0800 11/09 0000 11/08 1600 Intake Total 260 320 Output Total 0 30 0 Balance 260 -30 320 Intake, IV 260 Intake, Oral 320 Number 1 Bowel Movements Output, Chest 0 30 0 Tube Drainage Physical Exam General Appearance: Alert, Oriented X3, Cooperative, No Acute Distress Cardiovascular: Regular Rate, Normal S1, Normal S2, No Murmurs Lungs: improved breath sounds left lower lobe Abdomen: Normal Bowel Sounds, Soft, No Tenderness, No Masses Extremities: No Clubbing, No Cyanosis, No Edema, Normal Pulses Current Medications: Current Medications Sig/Ana Rosa Start time Last Medication Dose Route Stop Time Status Admin Albuterol Sulfate 3 ML BID 11/02 2100 AC 11/08 INH 2023 Albuterol Sulfate 2 PUF Q4-6 PRN PRN 11/01 2215 AC 11/06 INH 0054 Alteplase, 10 MG ONCE ONE 11/08 1000 DC 11/08 Recombinant IPL 11/08 1001 1133 Sodium Chloride 20 ML Amlodipine Besylate 5 MG DAILY 11/02 0900 AC 11/08 PO 0810 Ampicillin Sodium/ 3,000 MG Q6 11/02 1800 AC 11/09 Sulbactam Sodium IV 0544 Sodium Chloride 100 ML Atorvastatin Calcium 10 MG 1700 11/02 1700 AC 11/08 PO 1703 Benzocaine/Menthol 1 AARTI Q2P PRN 11/05 2115 AC 11/06 PO 0811 Calcium Carbonate 500 MG DAILY PRN 11/04 1830 AC 11/05 PO 1728 Diazepam 2 MG TIDPRN PRN 11/07 1430 AC 11/07 PO 1419 Enoxaparin Sodium 40 MG DAILY 11/02 0900 AC 11/08 SC 0810 Gabapentin 100 MG 0800 & 1700 11/07 1810 AC 11/08 PO 1704 Gabapentin 300 MG QPM 11/01 2300 AC 11/08 PO 2021 Guaifenesin 600 MG Q12 11/01 2205 AC 11/08 PO 202 Ibuprofen 600 MG .STK-MED ONE 11/08 1150 DC PO 11/08 1151 Ibuprofen 600 MG Q8P PRN 11/01 2215 AC 11/09 PO 0544 Levothyroxine Sodium 0.05 MG DAILY AC 11/02 0700 AC 11/09 PO 0548 Sodium Chloride 2 SPRAY Q4P PRN 11/04 2115 AC 11/08 DANDY 1735 Last 24 Hrs of Lab/Domenico Results Last 24 Hrs of Labs/Mics: Laboratory Tests 11/09/17 0642: CBC w Diff Pending, WBC Pending, RBC Pending, Hgb Pending, Hct Pending, MCV Pending, MCH Pending, MCHC Pending, RDW Pending, Plt Count Pending, MPV Pending 11/08/17 0730: CBC w Diff NO MAN DIFF REQ, RBC 4.24, MCV 87.8, MCH 29.2, MCHC 33.3, RDW 13.5, MPV 6.7 L, Gran % 73.8, Lymphocytes % 10.0 L, Monocytes % 11.0 H, Eosinophils % 4.9, Basophils % 0.3, Absolute Granulocytes 9.9 H, Absolute Lymphocytes 1.3, Absolute Monocytes 1.5 H, Absolute Eosinophils 0.7, Absolute Basophils 0 Assessment/Plan Assessment: 52 year old female with PMH of MS on solumedrol, Ampyra, and rituximab, hypothyroidism, HTN, HLD, recurrent pneumonia, most recently 07/2017 treated as outpatient presented with complaints of severe cough, dyspnea, and pleuritic chest pain. Pneumonia and loculated left pleural effusion and empyema: s/p diagnostic and therapeutic thoracentesis (82,000 WBC, pH <7.2, high LDH) culture neg Blood cultures positive for Hemophilus influenza Afebrile, persistent leukocytosis Day 7 of Unasyn Pigtail catheter placed by IR 11/07 Alteplase x 2 with 50cc chest tube output overnight Repeat PA/lateral chest x-ray yesterday-residual fluid remaining along the major fissure Plan for repeat CT today to assess need for pigtail and repeat lytics Cardiothoracic surgery, pulmonology, and ID consulted, follow up recommendations HTN: Continue norvasc HLD: Continue atorvastatin Hypothyroidism: Continue synthroid MS: Continue ampyra 10mg po bid Heart healthy diet DVT ppx-lovenox Full code Problem List: 1. Pneumonia 2. Empyema 3. Pleural effusion Pain Ratin Pain Location: n/a Pain Goal: Pain 4 or less Pain Plan: prn Tomorrow's Labs & Rationales: cbc
[2017-11-09 07:55] LABS: ABSOLUTE BASOPHIL COUNT 0 /CUMM (0.0-0.2); ABSOLUTE EOSINOPHIL COUNT 0.8 /CUMM (0.0-0.7); ABSOLUTE GRANULOCYTE CT 6.4 /CUMM (1.4-6.5); ABSOLUTE LYMPH COUNT 1.2 /CUMM (1.2-3.4); ABSOLUTE MONOCYTE COUNT 1.3 /CUMM (0.10-0.60); BASOPHIL % 0.2 % (0.0-2.0); GRANULOCYTE % 65.9 % (42.2-75.2); HEMATOCRIT 34.6 % (37-47); MEAN CORPUSCULAR HGB 28.7 PG (27.0-31.0); MEAN CORPUSCULAR HGB CONC 32.9 G/DL (33.0-37.0); MEAN PLATELET VOLUME 6.8 FL (7.4-10.4); PLATELET COUNT 566 /CUMM (130-400); RBC DISTRIBUTION WIDTH 13.1 % (11.5-14.5); RED BLOOD CELL CT 3.98 /CUMM (4.20-5.40); WHITE BLOOD CELL COUNT 9.7 /CUMM (4.8-10.8)
[2017-11-09] MEDS ORDERED: AUGMENTIN 875-1 EACH PO (08:36)
--- NOTE | 2017-11-09 08:38 | PN- Pulmonary ---
Subjective HPI/Critical Care Issues: Patient feels well she denies shortness of breath. Chest tube continues to drain after lytics. Objective Current Medications: Current Medications Sig/Ana Rosa Start time Last Medication Dose Route Stop Time Status Admin Albuterol Sulfate 3 ML BID 11/02 2100 AC 11/08 INH 2023 Albuterol Sulfate 2 PUF Q4-6 PRN PRN 11/01 2215 AC 11/06 INH 0054 Alteplase, 10 MG ONCE ONE 11/08 1000 DC 11/08 Recombinant IPL 11/08 1001 1133 Sodium Chloride 20 ML Amlodipine Besylate 5 MG DAILY 11/02 0900 AC 11/08 PO 0810 Ampicillin Sodium/ 3,000 MG Q6 11/02 1800 AC 11/09 Sulbactam Sodium IV 0544 Sodium Chloride 100 ML Atorvastatin Calcium 10 MG 1700 11/02 1700 AC 11/08 PO 1703 Benzocaine/Menthol 1 AARTI Q2P PRN 11/05 2115 AC 11/06 PO 0811 Calcium Carbonate 500 MG DAILY PRN 11/04 1830 AC 11/05 PO 1728 Diazepam 2 MG TIDPRN PRN 11/07 1430 AC 11/07 PO 1419 Enoxaparin Sodium 40 MG DAILY 11/02 0900 AC 11/08 SC 0810 Gabapentin 100 MG 0800 & 1700 11/07 1810 AC 11/08 PO 1704 Gabapentin 300 MG QPM 11/01 2300 AC 11/08 PO 2021 Guaifenesin 600 MG Q12 11/01 2205 AC 11/08 PO 2021 Ibuprofen 600 MG .STK-MED ONE 11/08 1150 DC PO 11/08 1151 Ibuprofen 600 MG Q8P PRN 11/01 2215 AC 11/09 PO 0544 Levothyroxine Sodium 0.05 MG DAILY AC 11/02 0700 AC 11/09 PO 0548 Sodium Chloride 2 SPRAY Q4P PRN 11/04 211 AC 11/08 DANDY 1735 Vital Signs & I&O Last 24 Hrs of Vitals and I&O: Vital Signs Date Time Temp Pulse Resp B/P B/P Pulse O2 O2 Flow FiO2 Mean Ox Delivery Rate 11/09 0512 98.0 78 20 162/88 93 11/09 0000 Room Air 11/08 2240 98.4 92 20 140/80 95 Room Air 11/08 2149 96 Room Air Room Air 11/08 1424 97.8 88 18 157/83 93 Room Air 11/08 0839 95 Room Air Intake & Output 11/09 1600 11/09 0800 11/09 0000 Intake Total 260 Output Total 0 30 Balance 260 -30 Intake, IV 260 Output, Chest 0 30 Tube Drainage Room oxygen saturation 93% exam for chest shows continued decreased breath sounds over the left posterior chest cardiac exam shows normal S1 and S2 without murmurs white count is now normal Impression/Plan Impression/Plan Impression/Plan: 52-year-old with bacteremic Haemophilus pneumonia complicated by empyema improved status post drainage Recommendations: Repeat noncontrast CT scan of the chest to determine ongoing need for lytic installation
--- NOTE | 2017-11-09 10:59 | PN- Att Addend ---
Attending Addendum Attending Brief Note pATIENT FEELING BETTER hAD TREATMENT TO THE PLEURAL EFFUSSION LAST EVENING. vITAL SIGNS STABLE. NO FEVER. No new changes on physical. WBC 9.[address] chest later on to see progress of effusion if stable start disposition plans. Intake & Output 11/09 1600 11/09 0400 11/08 1600 11/08 0400 11/07 1600 11/07 0400 Intake Total 260 287 338 4754 850 Output Total 0 30 420 421 16 600 Balance 260 -30 930 013 7118 250 Intake, IV 260 220 310 Intake, Oral 630 293 1417 850 Number 1 1 0 Bowel Movements Output, Chest 0 30 20 421 16 0 Tube Drainage Output, Urine 400 600 Current Medications Sig/Ana Rosa Start time Last Medication Dose Route Stop Time Status Admin Albuterol Sulfate 3 ML BID 11/02 2100 AC 11/09 INH 0925 Albuterol Sulfate 2 PUF Q4-6 PRN PRN 11/01 2215 AC 11/06 INH 0054 Amlodipine Besylate 5 MG DAILY 11/02 0900 AC 11/09 PO 0905 Ampicillin Sodium/ 3,000 MG Q6 11/02 1800 AC 11/09 Sulbactam Sodium IV 0544 Sodium Chloride 100 ML Atorvastatin Calcium 10 MG 1700 11/02 1700 AC 11/08 PO 1703 Benzocaine/Menthol 1 AARTI Q2P PRN 11/05 211 AC 11/06 PO 0811 Calcium Carbonate 500 MG DAILY PRN 11/04 1830 AC 11/05 PO 1728 Diazepam 2 MG TIDPRN PRN 11/07 1430 AC 11/07 PO 1419 Enoxaparin Sodium 40 MG DAILY 11/02 0900 AC 11/09 SC 0905 Gabapentin 100 MG 0800 & 1700 11/07 1810 AC 11/09 PO 0905 Gabapentin 300 MG QPM 11/01 2300 AC 11/08 PO 2021 Guaifenesin 600 MG Q12 11/01 2205 AC 11/09 PO 0905 Ibuprofen 600 MG .STK-MED ONE 11/08 1150 DC PO 11/08 1151 Ibuprofen 600 MG Q8P PRN 11/01 2215 AC 11/09 PO 0544 Levothyroxine Sodium 0.05 MG DAILY AC 11/02 0700 AC 11/09 PO 0548 Sodium Chloride 2 SPRAY Q4P PRN 11/04 2115 AC 11/08 DANDY 1735 Laboratory Tests 11/09/17 0642: CBC w Diff NO MAN DIFF REQ, RBC 3.98 L, MCV 87.0, MCH 28.7, MCHC 32.9 L, RDW 13.1, MPV 6.8 L, Gran % 65.9, Lymphocytes % 12.4 L, Monocytes % 13.5 H, Eosinophils % 8.0 H, Basophils % 0.2, Absolute Granulocytes 6.4, Absolute Lymphocytes 1.2, Absolute Monocytes 1.3 H, Absolute Eosinophils 0.8, Absolute Basophils 0 11/08/17 0730: CBC w Diff NO MAN DIFF REQ, RBC 4.24, MCV 87.8, MCH 29.2, MCHC 33.3, RDW 13.5, MPV 6.7 L, Gran % 73.8, Lymphocytes % 10.0 L, Monocytes % 11.0 H, Eosinophils % 4.9, Basophils % 0.3, Absolute Granulocytes 9.9 H, Absolute Lymphocytes 1.3, Absolute Monocytes 1.5 H, Absolute Eosinophils 0.7, Absolute Basophils 0 11/07/17 0713: CBC w Diff NO MAN DIFF REQ, RBC 4.01 L, MCV 87.6, MCH 29.3, MCHC 33.4, RDW 13.6 , MPV 6.8 L, Gran % 72.1, Lymphocytes % 9.7 L, Monocytes % 12.7 H, Eosinophils % 5.3 H, Basophils % 0.2, Absolute Granulocytes 9.1 H, Absolute Lymphocytes 1.2, Absolute Monocytes 1.6 H, Absolute Eosinophils 0.7, Absolute Basophils 0 Microbiology 11/06 170 STOOL: Clostridium difficile Toxin A & B - COMP 11/07 1619 BODY FLUID: Body Fluid Culture - COMP 11/06 162 BODY FLUID: Gram Stain - COMP Microbiology 11/06 170 STOOL: Clostridium difficile Toxin A & B - COMP 11/07 1619 BODY FLUID: Body Fluid Culture - COMP 11/07 1619 BODY FLUID: Gram Stain - COMP Vital Signs Date Time Temp Pulse Resp B/P B/P Pulse O2 O2 Flow FiO2 Mean Ox Delivery Rate 11/09 0929 94 Room Air Room Air 11/09 0612 98.0 78 20 162/88 93 11/09 0000 Room Air 11/08 2240 98.4 92 20 140/80 95 Room Air 11/08 2149 96 Room Air Room Air 11/08 1424 97.8 88 18 157/83 93 Room Air
--- NOTE | 2017-11-09 12:13 | CT SCAN REPORT ---
EXAMINATION: CT CHEST WITHOUT CONTRAST CLINICAL INFORMATION: Reevaluate the loculated pleural effusion. COMPARISON: Chest CT 11/06/2017. Radiographs as recent as today. TECHNIQUE: Multidetector volumetric CT imaging of the chest was done. Axial MIP volume rendering provided. Sagittal and coronal reformatted images were obtained. DLP: 473 mGy-cm FINDINGS: LUNGS: The central airways are patent. There is a pigtail catheter in place which is external to the pleural cavity. This is present along the posterior left chest wall, external to the seventh rib. There is a partial decrease in the left-sided pleural effusion. With small residual pleural effusion and associated foci of gas within the pleural space. There is a continued left lower lobe consolidation with air bronchograms, which is partially improved compared to prior. There is persistent loculated fluid along the left major fissure. Linear atelectasis at the right lung base. No pneumothorax. Soft tissue emphysema seen along the left chest wall. MEDIASTINUM: The heart is at the upper limit of normal in size. Trace pericardial effusion. No mediastinal lymphadenopathy. The thyroid gland is unremarkable. AXILLA: No lymphadenopathy. UPPER ABDOMEN: Cholelithiasis. The visualized portion of the upper abdomen is otherwise unremarkable. OSSEOUS STRUCTURES: No acute or suspicious osseous abnormality. Mild degenerative changes of the spine. IMPRESSION: Pigtail drainage catheter in place external to the pleural space, positioned external to the left posterior seventh rib. Subcutaneous emphysema present along the left chest wall. Decrease in size of the small left-sided pleural effusion with residual effusion and internal foci of gas. Decreasing left lower lobe consolidation which may represent atelectasis. Persistent loculated fluid along the left major fissure. Cholelithiasis.
--- NOTE | 2017-11-09 12:42 | RADIOLOGY REPORT ---
EXAMINATION: XR CHEST CLINICAL INFORMATION: Empyema, status post administration of lytics. COMPARISON: CXR from 11/08/2017 TECHNIQUE: 2 views of the chest were obtained. FINDINGS: The pleural drainage catheter is again seen in the posterolateral aspect of the inferior left hemithorax. Small residual pleural effusion is seen in this area of catheter drainage. The loculated fluid in the major fissure is unchanged. There is persistent opacity from atelectasis or consolidation in the left lower lobe. The right lung is clear. No pneumothorax or other acute abnormality. IMPRESSION: Findings in the chest are similar compared to 11/08/2017. The patient is status post catheter drainage of left pleural effusion. Small amount of residual pleural fluid is seen in the posterior aspect of the left lower hemithorax. The amount of loculated pleural fluid in the major fissure is unchanged.
--- NOTE | 2017-11-09 14:00 | PN- Infect Dx ---
Subjective Subjective: Afebrile. She feels well with no complaints. Objective Last 24 Hrs of Vital Signs/I&O Vital Signs Date Time Temp Pulse Resp B/P B/P Pulse O2 O2 Flow FiO2 Mean Ox Delivery Rate 11/09 0929 94 Room Air Room Air 11/09 0612 98.0 78 20 162/88 93 11/09 0000 Room Air 11/08 2240 98.4 92 20 140/80 95 Room Air 11/08 2149 96 Room Air Room Air 11/08 1424 97.8 88 18 157/83 93 Room Air Intake & Output 11/09 1600 11/09 0800 11/09 0000 Intake Total 260 Output Total 0 30 Balance 260 -30 Intake, IV 260 Output, Chest 0 30 Tube Drainage Physical Exam Other Physical Findings: She appears comfortable in no acute distress Lungs decreased breath sounds at the left base; pigtail catheter in place with 50 cc output yesterday and none overnight Results Last 24 Hours of Lab Results: Laboratory Tests 11/09 0642 Hematology CBC w Diff NO MAN DIFF REQ WBC (4.8 - 10.8 /CUMM) 9.7 RBC (4.20 - 5.40 /CUMM) 3.98 L Hgb (12.0 - 16.0 G/DL) 11.4 L Hct (37 - 47 %) 34.6 L MCV (81.0 - 99.0 FL) 87.0 MCH (27.0 - 31.0 PG) 28.7 MCHC (33.0 - 37.0 G/DL) 32.9 L RDW (11.5 - 14.5 %) 13.1 Plt Count (130 - 400 /CUMM) 566 H MPV (7.4 - 10.4 FL) 6.8 L Gran % (42.2 - 75.2 %) 65.9 Lymphocytes % (20.5 - 51.1 %) 12.4 L Monocytes % (1.7 - 9.3 %) 13.5 H Eosinophils % (0 - 5 %) 8.0 H Basophils % (0.0 - 2.0 %) 0.2 Absolute Granulocytes (1.4 - 6.5 /CUMM) 6.4 Absolute Lymphocytes (1.2 - 3.4 /CUMM) 1.2 Absolute Monocytes (0.10 - 0.60 /CUMM) 1.3 H Absolute Eosinophils (0.0 - 0.7 /CUMM) 0.8 Absolute Basophils (0.0 - 0.2 /CUMM) 0 Last 24 Hours of Domenico Results: Left pleural fluid culture November 06 negative Recent Imaging Studies: CT of the chest November 09 reveals a pigtail catheter external to the pleural cavity, along the posterior left chest wall, external to the seventh rib; a partial decrease in the left pleural effusion, with a small residual effusion and associated focus of gas within the pleural space; continued left lower lobe consolidation with air bronchograms; persistent loculated fluid along the left major fissure Assessment/Plan ID Impression: Clinically improved, with temperatures and white blood cell count normal, on Unasyn, Day 7 of treatment for pneumonia/empyema secondary to Haemophilus influenzae, status post treatment with lytics 2 days, with no significant fluid drained overnight, likely secondary to displacement of the catheter, which is noted to be outside of the pleural space on today's CAT scan. The catheter will need to be removed and the need for further drainage, for example of the loculated fluid in the major fissure, will need to be considered. Suggestion: 1. Remove the current pigtail catheter 2. Consider need for further drainage of the loculated fluid in the major fissure 3. Continue Unasyn
[2017-11-09 14:29] VITALS: BP 148/68
[2017-11-09 21:22] VITALS: BP 170/96
[2017-11-10 07:04] VITALS: BP 168/88
--- NOTE | 2017-11-10 07:48 | PN- Housestaff ---
Subjective Follow-up For: pneumonia empyema Subjective: patient was febrile to 100.8 overnight pigtail catheter removed yesterday no other complaints, wants her gabapentin dose to be increased Review of Systems Constitutional: Reports: see HPI. Objective Last 24 Hrs of Vital Signs/I&O Vital Signs Date Time Temp Pulse Resp B/P B/P Pulse O2 O2 Flow FiO2 Mean Ox Delivery Rate 11/10 0837 64 168/88 11/10 0704 99.0 64 18 168/88 94 11/09 2122 100.8 99 18 170/96 95 Room Air 11/09 2009 96 Room Air 11/09 1600 Room Air 11/09 1429 97.9 73 20 148/68 94 Room Air Intake & Output 11/10 1600 11/10 0800 11/10 0000 Intake Total 480 700 Output Total 600 Balance -120 700 Intake, IV 100 Intake, Oral 480 600 Number 1 Bowel Movements Output, Urine 600 Physical Exam General Appearance: Alert, Oriented X3, Cooperative, No Acute Distress Cardiovascular: Regular Rate, Normal S1, Normal S2, No Murmurs Lungs: diminished breath sounds left base Abdomen: Normal Bowel Sounds, Soft, No Tenderness, No Masses Extremities: No Clubbing, No Cyanosis, No Edema, Normal Pulses Current Medications: Current Medications Sig/Ana Rosa Start time Last Medication Dose Route Stop Time Status Admin Albuterol Sulfate 3 ML BID 11/02 2100 AC 11/09 INH 2009 Albuterol Sulfate 2 PUF Q4-6 PRN PRN 11/01 221 AC 11/09 INH 174 Amlodipine Besylate 5 MG DAILY 11/02 09 AC 11/10 PO 0837 Ampicillin Sodium/ 3,000 MG Q6 11/10 1200 AC Sulbactam Sodium IV Sodium Chloride 100 ML Ampicillin Sodium/ 3,000 MG Q6 11/02 1800 DC 11/10 Sulbactam Sodium IV 0553 Sodium Chloride 100 ML Atorvastatin Calcium 10 MG 1700 11/02 1700 AC 11/09 PO 1645 Benzocaine/Menthol 1 AARTI Q2P PRN 11/05 2115 AC 11/06 PO 0811 Calcium Carbonate 500 MG DAILY PRN 11/04 1830 AC 11/05 PO 1728 Diazepam 2 MG TIDPRN PRN 11/07 1430 AC 11/07 PO 1419 Enoxaparin Sodium 40 MG DAILY 11/02 0900 AC 11/10 SC 0837 Gabapentin 100 MG 0800 & 1700 11/07 1810 AC 11/10 PO 0837 Gabapentin 300 MG QPM 11/01 2300 AC 11/09 PO 2053 Guaifenesin 600 MG Q12 11/01 2205 AC 11/10 PO 0837 Ibuprofen 600 MG .STK-MED ONE 11/09 2139 DC PO 11/09 2140 Ibuprofen 600 MG Q8P PRN 11/01 2215 AC 11/09 PO 2140 Levothyroxine Sodium 0.05 MG DAILY AC 11/02 0700 AC 11/10 PO 0553 Sodium Chloride 2 SPRAY Q4P PRN 11/04 211 AC 11/08 DANDY 1735 Last 24 Hrs of Lab/Domenico Results Last 24 Hrs of Labs/Mics: Laboratory Tests 11/10/17 0734: Anion Gap 11, Estimated GFR > 60, BUN/Creatinine Ratio 10.0, CBC w Diff Pending, WBC Pending, RBC Pending, Hgb Pending, Hct Pending, MCV Pending, MCH Pending, MCHC Pending, RDW Pending, Plt Count Pending, MPV Pending Assessment/Plan Assessment: 52 year old female with PMH of MS on solumedrol, Ampyra, and rituximab, hypothyroidism, HTN, HLD, recurrent pneumonia, most recently 07/2017 treated as outpatient presented with complaints of severe cough, dyspnea, and pleuritic chest pain. Pneumonia and loculated left pleural effusion and empyema: s/p diagnostic and therapeutic thoracentesis (82,000 WBC, pH <7.2, high LDH) culture neg Blood cultures positive for Hemophilus influenza Leukocytosis improved yesterday, repeat CBC pending, febrile to 100.8 overnight Day 8 of Unasyn Pigtail catheter removed yesterday after it became displaced from the pleural space CT demonstrated a persistent collection in the major fissure, discussed with IR Cardiothoracic surgery, pulmonology, and ID consulted, follow up recommendations Now that patient has had a fever, will likely require longer course of antibiotics and the need to address to residual collection in the fissure HTN: Continue norvasc HLD: Continue atorvastatin Hypothyroidism: Continue synthroid MS: Continue ampyra 10mg po bid Heart healthy diet DVT [id number] Full code Problem List: 1. Pneumonia 2. Pleural effusion 3. Empyema Pain Ratin Pain Location: n/a Pain Goal: Pain 4 or less Pain Plan: prn Tomorrow's Labs & Rationales: cbc
--- NOTE | 2017-11-10 07:58 | PN- Pulmonary ---
Subjective HPI/Critical Care Issues: Patient feels well chest tube is been removed she denies shortness of breath repeat white count is pending Objective Current Medications: Current Medications Sig/Ana Roas Start time Last Medication Dose Route Stop Time Status Admin Albuterol Sulfate 3 ML BID 11/02 2100 AC 11/09 INH 2009 Albuterol Sulfate 2 PUF Q4-6 PRN PRN 11/01 2215 AC 11/09 INH 174 Amlodipine Besylate 5 MG DAILY 11/02 09 AC 11/09 PO 0905 Ampicillin Sodium/ 3,000 MG Q6 11/02 1800 AC 11/10 Sulbactam Sodium IV 0553 Sodium Chloride 100 ML Atorvastatin Calcium 10 MG 1700 11/02 1700 AC 11/09 PO 1645 Benzocaine/Menthol 1 AARTI Q2P PRN 11/05 211 AC 11/06 PO 0811 Calcium Carbonate 500 MG DAILY PRN 11/04 1830 AC 11/05 PO 1728 Diazepam 2 MG TIDPRN PRN 11/07 1430 AC 11/07 PO 1419 Enoxaparin Sodium 40 MG DAILY 11/02 0900 AC 11/09 SC 0905 Gabapentin 100 MG 0800 & 1700 11/07 1810 AC 11/09 PO 1643 Gabapentin 300 MG QPM 11/01 2300 AC 11/09 PO 2053 Guaifenesin 600 MG Q12 11/01 2205 AC 11/09 PO 205 Ibuprofen 600 MG .STK-MED ONE 11/09 2139 DC PO 11/09 2140 Ibuprofen 600 MG Q8P PRN 11/01 2215 AC 11/09 PO 2140 Levothyroxine Sodium 0.05 MG DAILY AC 11/02 0700 AC 11/10 PO 0553 Sodium Chloride 2 SPRAY Q4P PRN 11/04 211 AC 11/08 DANDY 1735 Vital Signs & I&O Last 24 Hrs of Vitals and I&O: Vital Signs Date Time Temp Pulse Resp B/P B/P Pulse O2 O2 Flow FiO2 Mean Ox Delivery Rate 11/10 0704 99.0 64 18 168/88 94 11/09 212 100.8 99 18 170/96 95 Room Air 11/09 2009 96 Room Air 11/09 1600 Room Air 11/09 1429 97.9 73 20 148/68 94 Room Air 11/09 0929 94 Room Air Room Air Intake & Output 11/10 0800 11/10 0000 11/09 1600 Intake Total 480 700 120 Output Total 600 Balance -120 700 120 Intake, IV 100 120 Intake, Oral 480 600 Number 1 1 Bowel Movements Output, Urine 600 Pressor oximetry 94% temperature chest shows at of breath sounds but still diminished at the base there are no rubs present cardiac exam shows normal S1 and S2 without murmurs Impression/Plan Impression/Plan Impression/Plan: 52 year-old bacteremic Haemophilus pneumonia Complicated by empyema status post drainage. There remains a small collection within the fissure. As her white count is now normal and concern is raised over possible adverse consequences from evacuation of this consensus is to continue to monitor as long his white count remains normal and complete course of antibiotics. Recommendations: Continue to monitor CBCs and if it remains normal follow-up imaging as outpatient after completion of antibiotic course
[2017-11-10 08:13] LABS: ABSOLUTE BASOPHIL COUNT 0.1 /CUMM (0.0-0.2); ABSOLUTE EOSINOPHIL COUNT 0.8 /CUMM (0.0-0.7); ABSOLUTE GRANULOCYTE CT 6.9 /CUMM (1.4-6.5); ABSOLUTE LYMPH COUNT 1.6 /CUMM (1.2-3.4); ABSOLUTE MONOCYTE COUNT 1.3 /CUMM (0.10-0.60); BASOPHIL % 0.5 % (0.0-2.0); EOSINOPHIL % 7.9 % (0-5); GRANULOCYTE % 64.7 % (42.2-75.2); HEMATOCRIT 36.1 % (37-47); MEAN CORPUSCULAR HGB 28.8 PG (27.0-31.0); MEAN CORPUSCULAR HGB CONC 33.1 G/DL (33.0-37.0); MEAN CORPUSCULAR VOLUME 87.2 FL (81.0-99.0); PLATELET COUNT 386 /CUMM (130-400); RBC DISTRIBUTION WIDTH 13.1 % (11.5-14.5); RED BLOOD CELL CT 4.14 /CUMM (4.20-5.40); WHITE BLOOD CELL COUNT 10.7 /CUMM (4.8-10.8)
--- NOTE | 2017-11-10 11:06 | PN- Att Addend ---
Attending Addendum Attending Brief Note Patient offers no new complaints, chest tube again dislodged T-max 100.8. No other changes on physical exam. Will check with consultants what the next step will be in the meantime continue observation will check to see if she needs to reinserted or monitor without the tube in place. White count was 10,700 today. Intake & Output 11/10 1600 11/10 0400 11/09 1600 11/09 0400 11/08 1600 11/08 0400 Intake Total 480 700 380 540 850 Output Total 600 0 30 420 421 Balance -120 700 380 -30 120 429 Intake, IV 100 380 220 Intake, Oral 480 600 320 850 Number 1 1 1 1 Bowel Movements Output, Chest 0 30 20 421 Tube Drainage Output, Urine 600 400 Current Medications Sig/Ana Rosa Start time Last Medication Dose Route Stop Time Status Admin Albuterol Sulfate 3 ML BID 11/02 2100 AC 11/10 INH 1042 Albuterol Sulfate 2 PUF Q4-6 PRN PRN 11/01 2215 AC 11/09 INH 1742 Amlodipine Besylate 5 MG DAILY 11/02 0900 AC 11/10 PO 0837 Ampicillin Sodium/ 3,000 MG Q6 11/10 1200 AC Sulbactam Sodium IV Sodium Chloride 100 ML Ampicillin Sodium/ 3,000 MG Q6 11/10 1200 AC Sulbactam Sodium IV Sodium Chloride 100 ML Ampicillin Sodium/ 3,000 MG Q6 11/02 1800 DC 11/10 Sulbactam Sodium IV 0553 Sodium Chloride 100 ML Atorvastatin Calcium 10 MG 1700 11/02 1700 AC 11/09 PO 1645 Benzocaine/Menthol 1 AARTI Q2P PRN 11/05 2115 AC 11/06 PO 0811 Calcium Carbonate 500 MG DAILY PRN 11/04 1830 AC 11/05 PO 1728 Diazepam 2 MG TIDPRN PRN 11/07 1430 AC 11/07 PO 1419 Enoxaparin Sodium 40 MG DAILY 11/02 0900 AC 11/10 SC 0837 Gabapentin 200 MG 0800 & 1700 11/10 1700 AC PO Gabapentin 100 MG 0800 & 1700 11/07 1810 DC 11/10 PO 0837 Gabapentin 300 MG QPM 11/01 2300 AC 11/09 PO 2053 Guaifenesin 600 MG Q12 11/01 2205 AC 11/10 PO 0837 Ibuprofen 600 MG .STK-MED ONE 11/09 2138 DC PO 11/09 2140 Ibuprofen 600 MG Q8P PRN 11/01 2215 AC 11/10 PO 1038 Levothyroxine Sodium 0.05 MG DAILY AC 11/02 0700 AC 11/10 PO 0553 Sodium Chloride 2 SPRAY Q4P PRN 11/04 2114 AC 11/08 DANDY 1735 Laboratory Tests 11/10/17 0734: Anion Gap 11, Estimated GFR > 60, BUN/Creatinine Ratio 10.0, CBC w Diff NO MAN DIFF REQ, RBC 4.14 L, MCV 87.2, MCH 28.8, MCHC 33.1, RDW 13.1, MPV 7.0 L, Gran % 64.7, Lymphocytes % 15.0 L, Monocytes % 11.9 H, Eosinophils % 7.9 H, Basophils % 0.5, Absolute Granulocytes 6.9 H, Absolute Lymphocytes 1.6, Absolute Monocytes 1.3 H, Absolute Eosinophils 0.8, Absolute Basophils 0.1 11/09/17 0642: CBC w Diff NO MAN DIFF REQ, RBC 3.98 L, MCV 87.0, MCH 28.7, MCHC 32.9 L, RDW 13.1, MPV 6.8 L, Gran % 65.9, Lymphocytes % 12.4 L, Monocytes % 13.5 H, Eosinophils % 8.0 H, Basophils % 0.2, Absolute Granulocytes 6.4, Absolute Lymphocytes 1.2, Absolute Monocytes 1.3 H, Absolute Eosinophils 0.8, Absolute Basophils 0 11/08/17 0730: CBC w Diff NO MAN DIFF REQ, RBC 4.24, MCV 87.8, MCH 29.2, MCHC 33.3, RDW 13.5, MPV 6.7 L, Gran % 73.8, Lymphocytes % 10.0 L, Monocytes % 11.0 H, Eosinophils % 4.9, Basophils % 0.3, Absolute Granulocytes 9.9 H, Absolute Lymphocytes 1.3, Absolute Monocytes 1.5 H, Absolute Eosinophils 0.7, Absolute Basophils 0 Vital Signs Date Time Temp Pulse Resp B/P B/P Pulse O2 O2 Flow FiO2 Mean Ox Delivery Rate 11/10 1043 96 Room Air Room Air 11/10 0837 64 168/88 11/10 0800 Room Air 11/10 0704 99.0 64 18 168/88 94 06/28 2122 100.8 99 18 170/96 95 Room Air 11/09 2009 96 Room Air 11/09 1600 Room Air 11/09 1429 97.9 73 20 148/68 94 Room Air
--- NOTE | 2017-11-10 11:11 | PN- Infect Dx ---
Subjective Subjective: T-max 100.8. She noted an episode of chills last night. She has a minimal cough, which is nonproductive, and no chest pain or shortness of breath. She has had no diarrhea or dysuria. Objective Last 24 Hrs of Vital Signs/I&O Vital Signs Date Time Temp Pulse Resp B/P B/P Pulse O2 O2 Flow FiO2 Mean Ox Delivery Rate 11/10 1043 96 Room Air Room Air 11/10 0837 64 168/88 11/10 0800 Room Air 11/10 0704 99.0 64 18 168/88 94 11/09 2122 100.8 99 18 170/96 95 Room Air 11/09 2009 96 Room Air 11/09 1600 Room Air 11/09 1429 97.9 73 20 148/68 94 Room Air Intake & Output 11/10 1600 11/10 0800 11/10 0000 Intake Total 480 700 Output Total 600 Balance -120 700 Intake, IV 100 Intake, Oral 480 600 Number 1 Bowel Movements Output, Urine 600 Physical Exam Other Physical Findings: She appears comfortable in no acute distress Lungs crackles at the right base; slightly decreased breath sounds at the left base Heart regular rhythm with no murmur Abdomen is obese, soft, nontender with positive bowel sounds Extremities no cyanosis, clubbing or edema Results Last 24 Hours of Lab Results: Laboratory Tests 11/10 0734 Chemistry Sodium (137 - 145 mmol/L) 143 Potassium (3.5 - 5.1 mmol/L) 4.5 Chloride (98 - 107 mmol/L) 109 H Carbon Dioxide (22 - 30 mmol/L) 23 Anion Gap (5 - 16) 11 BUN (7 - 17 mg/dL) 5 L Creatinine (0.5 - 1.0 mg/dL) 0.5 Estimated GFR (>60 ml/min) > 60 BUN/Creatinine Ratio (7 - 25 %) 10.0 Hematology CBC w Diff NO MAN DIFF REQ WBC (4.8 - 10.8 /CUMM) 10.7 RBC (4.20 - 5.40 /CUMM) 4.14 L Hgb (12.0 - 16.0 G/DL) 11.9 L Hct (37 - 47 %) 36.1 L MCV (81.0 - 99.0 FL) 87.2 MCH (27.0 - 31.0 PG) 28.8 MCHC (33.0 - 37.0 G/DL) 33.1 RDW (11.5 - 14.5 %) 13.1 Plt Count (130 - 400 /CUMM) 386 MPV (7.4 - 10.4 FL) 7.0 L Gran % (42.2 - 75.2 %) 64.7 Lymphocytes % (20.5 - 51.1 %) 15.0 L Monocytes % (1.7 - 9.3 %) 11.9 H Eosinophils % (0 - 5 %) 7.9 H Basophils % (0.0 - 2.0 %) 0.5 Absolute Granulocytes (1.4 - 6.5 /CUMM) 6.9 H Absolute Lymphocytes (1.2 - 3.4 /CUMM) 1.6 Absolute Monocytes (0.10 - 0.60 /CUMM) 1.3 H Absolute Eosinophils (0.0 - 0.7 /CUMM) 0.8 Absolute Basophils (0.0 - 0.2 /CUMM) 0.1 Last 24 Hours of Domenico Results: No new cultures Assessment/Plan ID Impression: Low-grade fever overnight, with a slight increase in her white blood cell count today, suggesting the possibility of a residual empyema status post removal of the pigtail catheter that had been replaced 4 days ago and removed yesterday after it became displaced into the soft tissues. She remains on Unasyn, Day 8 of treatment for pneumonia/empyema secondary to Haemophilus influenzae. Have discussed with IR who recommends ultrasound with possible thoracentesis if adequate fluid present. Of note her CBC differential reveals increased eosinophils, raising concern for a possible drug reaction, which could theoretically explain her fever, though she has no rash. Suggestion: 1. Ultrasound of the left chest, with thoracentesis if adequate fluid present 2. Continue Unasyn
--- NOTE | 2017-11-10 14:17 | ULTRASOUND REPORT ---
EXAM: Limited chest ultrasound INDICATION: 52-year-old female who has had 2 left-sided chest tubes which have dislodged over the past [address] chest from yesterday indicated air and only a small residual effusion with continued left lower lobe consolidation. Request was made to evaluate the size of effusion for possible repeat pleural drain if necessary. FINDINGS: Ultrasound imaging of the left chest revealed only a small residual left-sided pleural effusion. Considerable lung consolidation is demonstrated. No safe window for placement of chest tube. CONCLUSION: Only a small residual left-sided pleural effusion persists. There is considerable lung consolidation demonstrated. There is no safe window for placement of a chest tube at this time. These findings were discussed with Dr. Savage. If there is a clinical indication of the pleural effusion enlarging or the patient's clinical status is deteriorating, I recommended obtaining a chest CT utilizing IV contrast to better differentiate the lung consolidation from any possible residual pleural fluid.
[2017-11-10 15:15] VITALS: BP 154/80
--- NOTE | 2017-11-10 16:58 | Transfer of Care Summary ---
Hospital Course Course Hospital Course: 52 year old female with PMH of MS on solumedrol, rituximab, and Ampyra, hypothyroidism, HTN, HLD, recurrent pneumonia, most recently 07/2017 treated as outpatient presented with complaints of severe cough, dyspnea, and pleuritic chest pain for several days. She was originally evaluated in the ED and discharged on azithromycin and medrol dose pack before returning and being admitted. She did have some chills but didn't have any documented fevers. She has had pneumonia in the past, approximately 1 year and again 2 months ago treated with moxifloxacin and keflex respectively. In the ED, she had a leukocytosis of 26,000 and a chest CTA that was negative for PE but showed a loculated left pleural effusion and left lower lobe consolidation. Thoracentesis was performed and showed 82,000 WBC, pH <7.2, and high LDH consistent with empyema. The patient was started on antibiotics with ceftriaxone and azithroymcin but this was changed to Unasyn in consultation with infectious disease. 05/16 blood cultures returned positive for Hemophilus influenza and pleural cultures and gram stain were negative. The patient had a pigtail catheter placed in the left pleural cavity twice, both of which became displaced on repeat imaging, combined they removed around half a liter of pleural fluid, and she recieved lytic therapy with alteplase. Her leukocytosis improved back to within normal limits gradually with drainage and one week of treatment with Unasyn. On repeat CT imaging, the loculated effusion improved at the left base but collection in the major fissure remained. The patient then spiked a fever to 100.8. The loculated collection was visualized under ultrasound with interventional radiology but not conducive to drainage/ aspiration without significant risk of lung parenchymal injury. The patient will continued to be monitored with daily CBCs and vital for fever or leukocytosis and need a prolonged course of antibiotics with Unasyn and transition to Augmentin for discharge for a total course of two weeks minimum. Cardiothoracic surgery, pulmonary, and infectious disease consultants are all involved in the patients care. Her home medications for hypertension, hyperlipidemia, and hypothyroidism were continued. She is continuing Ampyra for her MS, but solumedrol and rituximab infusions are stopped during hospitalization and in the setting of infection. Her home medication of gabapentin dose was increased per patient request for neuropathic pain. Assessment/Plan: The patient will continue to be monitored with daily CBCs and vital for fever or leukocytosis and need a prolonged course of antibiotics with Unasyn and transition to Augmentin for discharge for a total course of two weeks minimum. Full code
[2017-11-10 21:30] VITALS: BP 160/90
[2017-11-11 06:42] VITALS: BP 136/77
--- NOTE | 2017-11-11 08:39 | PN- Housestaff ---
Scott AMAYA,Deb 11/11/17 0838: Subjective Follow-up For: Pneumonia Empyema status post drainage Blood cultures 1 growing Haemophilus influenza Subjective: Patient was seen and examined today. Patient reports that she has been feeling much better today. Patient states her breathing has significantly improved. Patient denies any fever, chills. Reports a nonproductive cough however states that it does not feel the same as when she came in. Patient denies any chest pain, shortness of breath, nausea/vomiting, abdominal pain. No acute events overnight. Patient has remained afebrile for the past 24 hours. Review of Systems Constitutional: Reports: see HPI. Objective Last 24 Hrs of Vital Signs/I&O Vital Signs Date Time Temp Pulse Resp B/P B/P Pulse O2 O2 Flow FiO2 Mean Ox Delivery Rate 11/11 0814 97 Room Air 11/11 0800 Room Air 11/11 0748 130/86 11/11 0642 97.8 72 20 136/77 93 Room Air 11/11 0000 96 Room Air 11/10 2130 98.3 91 18 160/90 96 11/10 2113 95 Room Air 11/10 1515 97.9 84 18 154/80 94 11/10 1043 96 Room Air Room Air Intake & Output 11/11 1600 11/11 0800 11/11 0000 Intake Total 320 320 Output Total 300 Balance 20 320 Intake, IV 120 100 Intake, Oral 200 220 Output, Urine 300 Physical Exam General Appearance: Alert, Oriented X3, Cooperative, No Acute Distress Skin Temp/Moisture Exam: Warm/Dry HEENT: Atraumatic, PERRLA, EOMI, Mucous Membr. moist/pink Cardiovascular: Regular Rate, Normal S1, Normal S2 Lungs: crackles heard at the left lung base Abdomen: Normal Bowel Sounds, Soft, No Tenderness Current Medications: Current Medications Sig/Ana Rosa Start time Last Medication Dose Route Stop Time Status Admin Albuterol Sulfate 3 ML BID 11/02 2100 AC 11/11 INH 0813 Albuterol Sulfate 2 PUF Q4-6 PRN PRN 11/01 2215 AC 11/10 INH 203 Amlodipine Besylate 5 MG DAILY 11/02 0900 AC 11/11 PO 0748 Ampicillin Sodium/ 3,000 MG Q6 11/10 1200 DC 11/10 Sulbactam Sodium IV 1128 Sodium Chloride 100 ML Ampicillin Sodium/ 3,000 MG Q6 11/10 1200 AC 11/11 Sulbactam Sodium IV 0605 Sodium Chloride 100 ML Atorvastatin Calcium 10 MG 1700 11/02 1700 AC 11/10 PO 1623 Benzocaine/Menthol 1 AARTI Q2P PRN 11/05 211 AC 11/06 PO 0811 Calcium Carbonate 500 MG DAILY PRN 11/04 1830 AC 11/05 PO 1728 Diazepam 2 MG TIDPRN PRN 11/07 1430 AC 11/07 PO 1419 Enoxaparin Sodium 40 MG DAILY 11/02 0900 AC 11/11 SC 0748 Gabapentin 200 MG 0800 & 1700 11/10 1700 AC 11/11 PO 0748 Gabapentin 100 MG 0800 & 1700 11/07 1810 DC 11/10 PO 0837 Gabapentin 300 MG QPM 11/01 2300 AC 11/10 PO 2033 Guaifenesin 600 MG Q12 11/01 2205 AC 11/11 PO 0748 Ibuprofen 600 MG .STK-MED ONE 11/10 2301 DC PO 11/10 2302 Ibuprofen 600 MG .STK-MED ONE 11/10 1037 DC PO 11/10 1038 Ibuprofen 600 MG Q8P PRN 11/01 2215 AC 11/11 PO 0930 Levothyroxine Sodium 0.05 MG DAILY AC 11/02 0700 AC 11/11 PO 0605 Sodium Chloride 2 SPRAY Q4P PRN 11/04 2114 AC 11/08 DANDY 1735 Last 24 Hrs of Lab/Domenico Results Last 24 Hrs of Labs/Mics: Laboratory Tests 11/11 0711 Hematology CBC w Diff NO MAN DIFF REQ WBC (4.8 - 10.8 /CUMM) 8.9 RBC (4.20 - 5.40 /CUMM) 3.93 L Hgb (12.0 - 16.0 G/DL) 11.3 L Hct (37 - 47 %) 34.3 L MCV (81.0 - 99.0 FL) 87.4 MCH (27.0 - 31.0 PG) 28.8 MCHC (33.0 - 37.0 G/DL) 32.9 L RDW (11.5 - 14.5 %) 12.8 Plt Count (130 - 400 /CUMM) 523 H MPV (7.4 - 10.4 FL) 6.9 L Gran % (42.2 - 75.2 %) 63.5 Lymphocytes % (20.5 - 51.1 %) 15.6 L Monocytes % (1.7 - 9.3 %) 11.4 H Eosinophils % (0 - 5 %) 9.0 H Basophils % (0.0 - 2.0 %) 0.5 Absolute Granulocytes (1.4 - 6.5 /CUMM) 5.7 Absolute Lymphocytes (1.2 - 3.4 /CUMM) 1.4 Absolute Monocytes (0.10 - 0.60 /CUMM) 1.0 H Absolute Eosinophils (0.0 - 0.7 /CUMM) 0.8 Absolute Basophils (0.0 - 0.2 /CUMM) 0 Assessment/Plan Assessment: 52 year old female with PMH of MS on solumedrol, Ampyra, and rituximab, hypothyroidism, HTN, HLD, recurrent pneumonia, most recently 07/2017 treated as outpatient presented with complaints of severe cough, dyspnea, and pleuritic chest pain. Pneumonia and loculated left pleural effusion and empyema: s/p diagnostic and therapeutic thoracentesis (82,000 WBC, pH <7.2, high LDH) culture neg Blood cultures positive for Hemophilus influenza covered with Unasyn Leukocytosis resolved. Remains afebrile overnight. Day 9 of Unasyn. Discontinued Unasyn and changed to Augmentin 875mg BID today. Pigtail catheter removed two days prior after it became displaced from the pleural space CT demonstrated a persistent collection in the major fissure, discussed with IR Cardiothoracic surgery, pulmonology, and ID consulted, follow up recommendations * Ultrasound yesterday showed a small residual left sided effusion that is not safely amenable to drainage per IR. Continue incentive spirometry, TRC HTN: Continue norvasc HLD: Continue atorvastatin Hypothyroidism: Continue synthroid MS: Continue ampyra 10mg po bid Heart healthy diet DVT ppx-lovenox Full code Problem List: 1. Empyema 2. Pneumonia Pain Ratin Pain Location: n/a Pain Goal: Pain 4 or less Pain Plan: prn Tomorrow's Labs & Rationales: - Harshal Torres MD 11/11/17 1210: Attending MD Review Statement Attending Statement Attending MD Statement: examined this patient, discuss w/resident/PA/FOLDING MACHINE TENDER, agreed w/resident/PA/FOLDING MACHINE TENDER, reviewed EMR data (avail), reviewed images, amended to note Attending Assessment/Plan: Ms. Ritchie was interviewed and examined. Her EMR was reviewed. She states she is feeling much better today. She has remained afebrile for the last 24 hours. Her remaining vitals are stable and satisfactory. She is in no acute distress. Lung exam reveals bilateral fine end inspiratory rales at the bases. Exam is benign. CBCs and chemistries are satisfactory. C. difficile is negative. Ultrasound of the left chest reveals minimal residual fluid and no satisfactory access for drainage. There remains dense consolidation. We are continuing to treat her Haemophilus influenza pneumonia/bacteremia with ampicillin/sulbactam. We are continuing her other maintenance medications.
[2017-11-11 08:55] LABS: ABSOLUTE BASOPHIL COUNT 0 /CUMM (0.0-0.2); ABSOLUTE EOSINOPHIL COUNT 0.8 /CUMM (0.0-0.7); ABSOLUTE GRANULOCYTE CT 5.7 /CUMM (1.4-6.5); ABSOLUTE LYMPH COUNT 1.4 /CUMM (1.2-3.4); BASOPHIL % 0.5 % (0.0-2.0); GRANULOCYTE % 63.5 % (42.2-75.2); HEMATOCRIT 34.3 % (37-47); MEAN CORPUSCULAR HGB 28.8 PG (27.0-31.0); MEAN CORPUSCULAR HGB CONC 32.9 G/DL (33.0-37.0); MEAN CORPUSCULAR VOLUME 87.4 FL (81.0-99.0); MEAN PLATELET VOLUME 6.9 FL (7.4-10.4); PLATELET COUNT 523 /CUMM (130-400); RBC DISTRIBUTION WIDTH 12.8 % (11.5-14.5); RED BLOOD CELL CT 3.93 /CUMM (4.20-5.40); WHITE BLOOD CELL COUNT 8.9 /CUMM (4.8-10.8)
--- NOTE | 2017-11-11 11:08 | PN- Pulmonary ---
Subjective HPI/Critical Care Issues: Patient continues to feel well over this week secondary to MS. Repeat ultrasound did not show sufficient fluid to tap. White count remains normal Objective Current Medications: Current Medications Sig/Ana Rosa Start time Last Medication Dose Route Stop Time Status Admin Albuterol Sulfate 3 ML BID 11/02 2100 AC 11/11 INH 0813 Albuterol Sulfate 2 PUF Q4-6 PRN PRN 11/01 2215 AC 11/10 INH 2039 Amlodipine Besylate 5 MG DAILY 11/02 09 AC 11/11 PO 0748 Ampicillin Sodium/ 3,000 MG Q6 11/10 1200 DC 11/10 Sulbactam Sodium IV 1128 Sodium Chloride 100 ML Ampicillin Sodium/ 3,000 MG Q6 11/10 1200 AC 11/11 Sulbactam Sodium IV 0605 Sodium Chloride 100 ML Atorvastatin Calcium 10 MG 1700 11/02 1700 AC 11/10 PO 1623 Benzocaine/Menthol 1 AARTI Q2P PRN 11/05 2115 AC 11/06 PO 0811 Calcium Carbonate 500 MG DAILY PRN 11/04 1830 AC 11/05 PO 1728 Diazepam 2 MG TIDPRN PRN 11/07 1430 AC 11/07 PO 1419 Enoxaparin Sodium 40 MG DAILY 11/02 0900 AC 11/11 SC 0748 Gabapentin 200 MG 0800 & 1700 11/10 1700 AC 11/11 PO 0748 Gabapentin 300 MG QPM 11/01 2300 AC 11/10 PO 2033 Guaifenesin 600 MG Q12 11/01 2205 AC 11/11 PO 0748 Ibuprofen 600 MG .STK-MED ONE 11/10 2301 DC PO 11/10 2302 Ibuprofen 600 MG Q8P PRN 11/01 221 AC 11/11 PO 0930 Levothyroxine Sodium 0.05 MG DAILY AC 11/02 0700 AC 11/11 PO 0605 Sodium Chloride 2 SPRAY Q4P PRN 11/04 211 AC 11/08 DANDY 1735 Vital Signs & I&O Last 24 Hrs of Vitals and I&O: Vital Signs Date Time Temp Pulse Resp B/P B/P Pulse O2 O2 Flow FiO2 Mean Ox Delivery Rate 11/11 0814 97 Room Air 11/11 0800 Room Air 11/11 0748 130/86 11/11 0642 97.8 72 20 136/77 93 Room Air 11/11 0000 96 Room Air 11/10 2130 98.3 91 18 160/90 96 11/10 2113 95 Room Air 11/10 1515 97.9 84 18 154/80 94 Intake & Output 11/11 1600 11/11 0800 11/11 0000 Intake Total 320 320 Output Total 300 Balance 20 320 Intake, IV 120 100 Intake, Oral 200 220 Output, Urine 300 Oxygen saturation room air 97% exam for chest showed diminished breath sounds over the left posterior chest cardiac exam shows regular S1 and S2 without murmurs Impression/Plan Impression/Plan Impression/Plan: 52-year-old woman with bacteremic Haemophilus pneumonia complicated by empyema status post drainage Recommendations: Continue to monitor CBCs aggressive pulmonary toilet and incentive spirometry.
[2017-11-11 22:51] VITALS: BP 141/86
[2017-11-12 06:42] VITALS: BP 123/96; BP 95/54
--- NOTE | 2017-11-12 08:14 | PN- Housestaff ---
See Addendum Subjective Follow-up For: Pneumonia Empyema s/p drainage Blood Cultures x1 H. flu Subjective: Pt seen and examined at bedside. No acute extremis. States she feels good, denies any respiratory complaints. Breathing comfortably on room air. Denies fevers/chills. States pain is well controlled. Denies CP/SOB/N/V/Abd pain. Afebrile. Tolerating diet well. Continues to use incentive spirometry. No acute events overnight Review of Systems Constitutional: Reports: see HPI. Objective Last 24 Hrs of Vital Signs/I&O Vital Signs Date Time Temp Pulse Resp B/P B/P Pulse O2 O2 Flow FiO2 Mean Ox Delivery Rate 11/12 0840 74 123/96 11/12 0800 Room Air 11/12 0642 97.5 74 20 123/96 96 Room Air 11/11 2251 97.9 93 20 141/86 98 Room Air 11/11 2025 96 Room Air 11/11 1600 Room Air Intake & Output 11/12 1600 11/12 0800 11/12 0000 Intake Total 140 1110 Output Total Balance 140 1110 Intake, IV 20 Intake, Oral 120 1110 Physical Exam General Appearance: Alert, Oriented X3, Cooperative, No Acute Distress Skin: No Rashes, No Breakdown HEENT: PERRLA, Mucous Membr. moist/pink Cardiovascular: Regular Rate, Normal S1, Normal S2 Lungs: decreased lung sounds to left base Abdomen: Soft, No Tenderness Extremities: No Cyanosis Vascular: Normal Pulses, Pulses Symmetrical Current Medications: Current Medications Sig/Ana Rosa Start time Last Medication Dose Route Stop Time Status Admin Albuterol Sulfate 3 ML BID 11/02 2100 AC 11/12 INH 0920 Albuterol Sulfate 2 PUF Q4-6 PRN PRN 11/01 2215 AC 11/11 INH 1703 Amlodipine Besylate 5 MG DAILY 11/02 0900 AC 11/12 PO 0840 Amoxicillin/ 875 MG Q12 11/11 2100 AC 11/12 Clavulanate Potassium PO 0840 Ampicillin Sodium/ 3,000 MG Q6 11/10 1200 DC 11/11 Sulbactam Sodium IV 1130 Sodium Chloride 100 ML Atorvastatin Calcium 10 MG 1700 11/02 1700 AC 11/11 PO 1636 Benzocaine/Menthol 1 AARTI Q2P PRN 11/05 2114 AC 11/06 PO 0811 Calcium Carbonate 500 MG DAILY PRN 11/04 1830 AC 11/05 PO 1728 Diazepam 2 MG TIDPRN PRN 11/07 1430 AC 11/07 PO 1419 Enoxaparin Sodium 40 MG DAILY 11/02 0900 AC 11/12 SC 0840 Gabapentin 200 MG 0800 & 1700 11/10 1700 AC 11/12 PO 0840 Gabapentin 300 MG QPM 11/01 2300 AC 11/11 PO 2016 Guaifenesin 600 MG Q12 11/01 2205 AC 11/12 PO 0840 Ibuprofen 600 MG .STK-MED ONE 11/11 2013 DC PO 11/11 2014 Ibuprofen 600 MG Q8P PRN 11/01 2215 AC 11/11 PO 2016 Levothyroxine Sodium 0.05 MG DAILY AC 11/02 0700 AC 11/12 PO 0609 Sodium Chloride 2 SPRAY Q4P PRN 11/04 2115 AC 11/12 DANDY 0609 Last 24 Hrs of Lab/Domenico Results Last 24 Hrs of Labs/Mics: Laboratory Tests 11/12/17 1027: CBC w Diff Pending, WBC Pending, RBC Pending, Hgb Pending, Hct Pending, MCV Pending, MCH Pending, MCHC Pending, RDW Pending, Plt Count Pending, MPV Pending Assessment/Plan Assessment: 52 year old female with PMH of MS on solumedrol, Ampyra, and rituximab, hypothyroidism, HTN, HLD, recurrent pneumonia, most recently 07/2017 treated as outpatient, admitted for CAP with empyema, h. flu bacteremia Pneumonia and loculated left pleural effusion and empyema: -s/p diagnostic and therapeutic thoracentesis (82,000 WBC, pH <7.2, high LDH) culture neg -Blood cultures positive for H. flu covered with Unasyn -Awaiting lab results Remains afebrile overnight. -Day 2 of augmentin 875mg PO BID. Tolerating well. -Pigtail catheter removed three days ago -CT demonstrated a persistent collection in the major fissure, discussed with IR who after U/S said residual left sided effusion is not safely amenable to drainage -Appreciate Cardiothoracic surgery, pulmonology, and ID consults, will follow up recommendations -Continue incentive spirometry, TRC -Pain controlled HTN: Continue norvasc HLD: Continue atorvastatin Hypothyroidism: Continue synthroid MS: Continue ampyra 10mg po bid Heart healthy diet DVT ppx-lovenox Full code Problem List: 1. Pneumonia 2. Empyema Pain Ratin Pain Location: l chest wall Pain Goal: Remain pain free Pain Plan: Gabapentin Tomorrow's Labs & Rationales: na
[2017-11-12 08:40] VITALS: BP 123/96
--- NOTE | 2017-11-12 09:20 | Patient Discharge Instructions ---
Discharge Instructions General Discharge Information Special Instructions: - Please continue the prescribed antibiotics for a week. - Please follow up with your primary care physician within 1-2 weeks of discharge. Inform your primary care physician of this admission to [facility]. - Continue your current medications per discharge instructions. - Please watch for these problems: Fever, Chills, Nausea, Vomiting, Shortness of Breath, Productive Cough, Chest Pain/Discomfort, Abdominal Pain, Active Bleeding or Bloody urine/stool. Diet Continue normal diet: Yes Activity Full Activity/No Limits: Yes Acute Coronary Syndrome Inclusion Criteria At DC or during hospital stay patient has or had the following: ACS DIAGNOSIS No Discharge Core Measures Meds if any: Prescribed or Continued at Discharge Meds if any: NOT Prescribed or Continued at Discharge Congestive Heart Failure Inclusion Criteria At DC or during hospital stay patient has or had the following: CHF DIAGNOSIS No Discharge Core Measures Meds if any: Prescribed or Continued at Discharge Meds if any: NOT Prescribed or Continued at Discharge Cerebrovascular accident Inclusion Criteria At DC or during hospital stay patient has or had the following: CVA/TIA Diagnosis No Discharge Core Measures Meds if any: Prescribed or Continued at Discharge Meds if any: NOT Prescribed or Continued at Discharge Venous thromboembolism Inclusion Criteria VTE Diagnosis No VTE Type NONE VTE Confirmed by (Test) NONE Discharge Core Measures - Per Current guidelines, there needs to be overlap - treatment for the first 5 days of Warfarin therapy. - If discharged on Warfarin prior to 5 days of - overlap therapy, the patient will need to be - assessed for post discharge needs including - *Post discharge parental anticoagulation - *Warfarin and/or parental anticoagulation education - *Follow up date to check INR post discharge At least 5 days overlap therapy as Inpatient No Meds if any: Prescribed or Continued at Discharge Note: Overlap Therapy is Warfarin and Anticoagulant Meds if any: NOT Prescribed or Continued at Discharge
--- NOTE | 2017-11-12 10:30 | PN- Pulmonary ---
Subjective HPI/Critical Care Issues: Patient feels well remains afebrile continues to be comfortable on room air Objective Current Medications: Current Medications Sig/Ana Rosa Start time Last Medication Dose Route Stop Time Status Admin Albuterol Sulfate 3 ML BID 11/02 2100 AC 11/12 INH 0920 Albuterol Sulfate 2 PUF Q4-6 PRN PRN 11/01 2215 AC 11/11 INH 1703 Amlodipine Besylate 5 MG DAILY 11/02 09 AC 11/12 PO 0840 Amoxicillin/ 875 MG Q12 11/11 2100 AC 11/12 Clavulanate Potassium PO 0840 Ampicillin Sodium/ 3,000 MG Q6 11/10 1200 DC 11/11 Sulbactam Sodium IV 1130 Sodium Chloride 100 ML Atorvastatin Calcium 10 MG 1700 11/02 1700 AC 11/11 PO 1636 Benzocaine/Menthol 1 AARTI Q2P PRN 11/05 2115 AC 11/06 PO 0811 Calcium Carbonate 500 MG DAILY PRN 11/04 1830 AC 11/05 PO 1728 Diazepam 2 MG TIDPRN PRN 11/07 1430 AC 11/07 PO 1419 Enoxaparin Sodium 40 MG DAILY 11/02 0900 AC 11/12 SC 0840 Gabapentin 200 MG 0800 & 1700 11/10 1700 AC 11/12 PO 0840 Gabapentin 300 MG QPM 11/01 2300 AC 11/11 PO 2016 Guaifenesin 600 MG Q12 11/01 2205 AC 11/12 PO 0840 Ibuprofen 600 MG .STK-MED ONE 11/11 2013 DC PO 11/11 2014 Ibuprofen 600 MG Q8P PRN 11/01 2215 AC 11/11 PO 2016 Levothyroxine Sodium 0.05 MG DAILY AC 11/02 0700 AC 11/12 PO 0609 Sodium Chloride 2 SPRAY Q4P PRN 11/04 2115 AC 11/12 DANDY 0609 Vital Signs & I&O Last 24 Hrs of Vitals and I&O: Vital Signs Date Time Temp Pulse Resp B/P B/P Pulse O2 O2 Flow FiO2 Mean Ox Delivery Rate 11/12 0942 96 Room Air 11/12 0840 74 123/96 11/12 0800 Room Air 11/12 0642 97.5 74 20 123/96 96 Room Air 11/11 2251 97.9 93 20 141/86 98 Room Air 11/11 2025 96 Room Air 11/11 1600 Room Air Intake & Output 11/12 1600 11/12 0800 11/12 0000 Intake Total 140 1110 Output Total Balance 140 1110 Intake, IV 20 Intake, Oral 120 1110 Oxygen saturation 96% exam of her chest continues to show decreased breath sounds at the bases cardiac exam shows normal S1 and S2 without murmurs Impression/Plan Impression/Plan Impression/Plan: 52-year-old woman with Haemophilus pneumonia, complicated by empyema status post drainage has continued to have a normal white count and remains afebrile Recommendations: If white count remains normal would switch to by mouth antibiotics for an extended course and she appears stable from pulmonary standpoint. sHe should have outpatient follow-up in a week to 10 days
[2017-11-12 11:08] LABS: ABSOLUTE BASOPHIL COUNT 0.1 /CUMM (0.0-0.2); ABSOLUTE EOSINOPHIL COUNT 0.7 /CUMM (0.0-0.7); ABSOLUTE GRANULOCYTE CT 6.8 /CUMM (1.4-6.5); ABSOLUTE LYMPH COUNT 1.6 /CUMM (1.2-3.4); ABSOLUTE MONOCYTE COUNT 0.8 /CUMM (0.10-0.60); BASOPHIL % 0.5 % (0.0-2.0); EOSINOPHIL % 6.6 % (0-5); GRANULOCYTE % 68.4 % (42.2-75.2); MEAN CORPUSCULAR HGB 28.6 PG (27.0-31.0); MEAN CORPUSCULAR HGB CONC 32.9 G/DL (33.0-37.0); MEAN CORPUSCULAR VOLUME 87.2 FL (81.0-99.0); MEAN PLATELET VOLUME 6.8 FL (7.4-10.4); PLATELET COUNT 618 /CUMM (130-400); RBC DISTRIBUTION WIDTH 13.6 % (11.5-14.5); RED BLOOD CELL CT 4.84 /CUMM (4.20-5.40); WHITE BLOOD CELL COUNT 9.9 /CUMM (4.8-10.8)
[2017-11-12 11:22] LABS: HEMATOCRIT 42.2 % (37-47)
--- NOTE | 2017-11-12 11:54 | PN- Infect Dx ---
Subjective Subjective: 52-year-old white female with MS and pneumonia. The patient has remained afebrile with a normal white blood cell count. She is sitting comfortably in the chair and feels remarkably better. Denies fevers chills nausea or vomiting. Review of Systems Comments: As noted in HPI Objective Last 24 Hrs of Vital Signs/I&O Vital Signs Date Time Temp Pulse Resp B/P B/P Pulse O2 O2 Flow FiO2 Mean Ox Delivery Rate 11/12 0942 96 Room Air 11/12 0840 74 123/96 11/12 0800 Room Air 11/12 0642 97.5 74 20 123/96 96 Room Air 11/11 2251 97.9 93 20 141/86 98 Room Air 11/11 2025 96 Room Air 11/11 1600 Room Air Intake & Output 11/12 1600 11/12 0811/12 0000 Intake Total 140 1110 Output Total Balance 140 1110 Intake, IV 20 Intake, Oral 120 1110 Physical Exam Other Physical Findings: Awake alert oriented 3 Neck supple no JVD Lungs clear to auscultation bilaterally Heart regular rate and rhythm S1-S2 Abdomen is soft nontender nondistended No rashes or lesions Results Last 24 Hours of Lab Results: Laboratory Tests 11/12 1027 Hematology CBC w Diff NO MAN DIFF REQ WBC (4.8 - 10.8 /CUMM) 9.9 RBC (4.20 - 5.40 /CUMM) 4.84 Hgb (12.0 - 16.0 G/DL) 13.9 Hct (37 - 47 %) 42.2 MCV (81.0 - 99.0 FL) 87.2 MCH (27.0 - 31.0 PG) 28.6 MCHC (33.0 - 37.0 G/DL) 32.9 L RDW (11.5 - 14.5 %) 13.6 Plt Count (130 - 400 /CUMM) 618 H MPV (7.4 - 10.4 FL) 6.8 L Gran % (42.2 - 75.2 %) 68.4 Lymphocytes % (20.5 - 51.1 %) 15.9 L Monocytes % (1.7 - 9.3 %) 8.6 Eosinophils % (0 - 5 %) 6.6 H Basophils % (0.0 - 2.0 %) 0.5 Absolute Granulocytes (1.4 - 6.5 /CUMM) 6.8 H Absolute Lymphocytes (1.2 - 3.4 /CUMM) 1.6 Absolute Monocytes (0.10 - 0.60 /CUMM) 0.8 H Absolute Eosinophils (0.0 - 0.7 /CUMM) 0.7 Absolute Basophils (0.0 - 0.2 /CUMM) 0.1 Last 24 Hours of Domenico Results: Reviewed Recent Imaging Studies: Reviewed Assessment/Plan ID Impression: 52-year-old white female with MS and pneumonia. Concern for persistent underlying empyema however she appears stabl on Unasyn, Day 10 of treatment for pneumonia/empyema secondary to Haemophilus influenzae. She appears to be ready for discharge can switch to oral antibiotics. Suggestion: 1. Discontinue Unasyn 2. Augmentin her minimum of 2 weeks 3. Follow-up with primary care diana BROWN
[2017-11-12] MEDS ORDERED: AUGMENTIN 875-1 EACH PO ×2 (12:23→12:43)
== END 2017-11-12 13:37 | DRG 121 ==
LOC: ERH 18:05 → 2NB 21:01 → ERHI 21:01 → ENRESERV 21:41 → ENTRNSPT 22:35 → EDTRNSPTSTS 22:40 → EDTRNSPT 22:40 → 2NB 22:45 → CMPTRNSPT 22:56 → ENPENDDIS 11-12 12:49 → ENTRNSPT 11-12 13:23 → EDTRNSPTSTS 11-12 13:27 → EDTRNSPT 11-12 13:27 → 2NB 11-12 13:37 → CMPTRNSPT 11-12 13:47
PROVIDERS: Internal Medicine; Physician Assistant; Preventive Medicine Public Health & General Preventive Medicine; Student in an Organized Health Care Education/Training Program
PROC: 0B9 Respiratory System, Drainage (ICD-10-PCS; 2017-11-07)
PROC: 3E0L3GC Introduction of Other Therapeutic Substance into Pleural Cavity, Percutaneous Approach (ICD-10-PCS; 2017-11-07)
PROC: 0W9B30Z Drainage of Left Pleural Cavity with Drainage Device, Percutaneous Approach (ICD-10-PCS; principal; 2017-11-10)
DX: J14 Pneumonia due to Hemophilus influenzae (principal); G35 Multiple sclerosis; R25.2 Cramp and spasm; J90 Pleural effusion, not elsewhere classified; E03.9 Hypothyroidism, unspecified; J86.9 Pyothorax without fistula; Z79.51 Long term (current) use of inhaled steroids; Z79.52 Long term (current) use of systemic steroids; E78.5 Hyperlipidemia, unspecified; I10 Essential (primary) hypertension; R74.0 Nonspecific elevation of levels of transaminase and lactic acid dehydrogenase [LDH]
CPT/HCPCS: 2NBSP; 87075; 36415; 36592; 71045; 71046; 82436; 87040; 87070; 87071; 88305; 93005; 93010; 93306; 96374; 96375; 99291; J0456; J0696; J1650; J2001; J2930; J2997; J3360; J3490; J7040